=== PATIENT | female | born 1970 | race Caucasian/White ===

== ENCOUNTER 2018-08-02 13:02 | Emergency (ER) | payer BC ==
[2018-08-02] MEDS ORDERED: Ketorolac 30 MG/ML SDV IM ONE (14:09)
[2018-08-02] MEDS ORDERED: HYDROmorphone 1 MG/ML Syringe IM ONE (14:10)
--- NOTE | 2018-08-02 14:16 | EDM.PDOC ---
ED HPI GENERAL MEDICAL PROBLEM - General Chief Complaint: Back Pain or Injury Stated Complaint: BACK PAIN Time Seen by Provider: 08/02/18 14:14 Source of Information: Reports: Patient History Limitations: Reports: Language Barrier - History of Present Illness INITIAL COMMENTS - FREE TEXT/NARRATIVE: 47-year-old female presents with her for evaluation and treatment of back pain. States this is a chronic problem she's had this for several years. Reports over the last 3 days back pain has significantly worsened. She denies any recent trauma such as motor vehicle accidents or falls. Reports she has been in the gym utilizing weights and doing yoga which has exacerbated her back pain. Patient speaks some Syrian. It is rather poor. Language barrier is present. She reports pain radiating into both her legs. Reports pain primarily starts in her low back and radiates superiorly. She reports numbness and tingling into both legs. She reports trouble sleeping due to the pain and trouble walking due to the pain. She denies any urinary symptoms such as dysuria or hematuria. Reports urinary urgency but denies any urinary incontinence. No recent fevers or chills. patient reports some time ago she had imaging of her back done. She states that she was told she had a "bad disc". She states she's never been referred to surgery. If this was done in [place]. patient now resides in [place]. She is not establish with a primary care provider but has an appointment in one week to see someone at [place]. Treatments DEVELOPMENT SCIENTIST: Reports: Other (see below) Other Treatments DEVELOPMENT SCIENTIST: tylenol; naprosyn Lower Back Pain Score (Numeric/FACES): 9 - Related Data Allergies Allergy/AdvReac Type Severity Reaction Status Date / Time Iodinated Contrast- Oral and Allergy Rash Verified 08/02/18 13:35 IV Dye seafood Allergy Rash Uncoded 08/02/18 13:35 Home Meds: Home Meds Acetaminophen/oxyCODONE [Percocet 325-5 MG] 1 each PO Q8HR PRN #10 tab 08/02/18 [Rx] Cyclobenzaprine [Flexeril] 10 mg PO TID PRN #20 tab 08/02/18 [Rx] Lisinopril 10 mg PO DAILY 08/02/18 [History] Omeprazole 20 mg PO DAILY 08/02/18 [History] Pravastatin [Pravachol] 40 mg PO DAILY 08/02/18 [History] Warfarin Sodium [Coumadin] 7.5 mg PO DAILY 08/02/18 [History] Past Medical History Cardiovascular History: Reports: Heart Valve Replacement, High Cholesterol, Hypertension Other Cardiovascular History: mitral Gastrointestinal History: Reports: GERD Musculoskeletal History: Reports: Back Pain, Chronic - Past Surgical History GI Surgical History: Reports: Appendectomy, Cholecystectomy Female Surgical History: Reports: Hysterectomy Social & Family History - Tobacco Use Smoking Status *Q: Former Smoker Used Tobacco, but Quit: Yes Month/Year Tobacco Last Used: 1 week ago - Caffeine Use Caffeine Use: Reports: Coffee - Recreational Drug Use Recreational Drug Use: No ED ROS GENERAL - Review of Systems Review Of Systems: See Below Constitutional: Denies: Fever, Chills GI/Abdominal: Denies: Nausea, Vomiting : Reports: Urgency. Denies: Incontinence Musculoskeletal: Reports: Back Pain (low back with radiation into the bilaterla legs and superiorly), Leg Pain (bilateral legs) Neurological: Reports: Numbness (bilateral legs) ED EXAM,LOWER BACK PAIN/INJURY - Physical Exam Exam: See Below Exam Limited By: Language Barrier General Appearance: Alert, WD/WN, No Apparent Distress Neck: Normal Inspection, Non-Tender, Full Range of Motion Respiratory/Chest: No Respiratory Distress, Lungs Clear, Normal Breath Sounds Cardiovascular: Normal Peripheral Pulses, Regular Rate, Rhythm, No Murmur Back Exam: Normal Inspection, Vertebral Tenderness (pain from t12 to the sacrum) Extremities: Normal Inspection, Limited Range of Motion (reports pain with internal and external rotation of the hips, adduction and abduction of the hips , flexion and extension of the hips (reports back pain with these movements)), Other (unable to flex or extend at the waist due to pain but sat up in bed and walked to the bathroom wihtout problem) Neurological: Alert, Normal Mood/Affect, Normal Dorsiflexion, Normal Plantar Flexion, Normal Gait, Straight Leg Raise (L) (reports pain to the low back), Straight Leg Raise (R) (reports pain to the low back) Psychiatric: Normal Affect, Normal Mood Skin Exam: Warm, Dry, Normal Color Course - Vital Signs Last Recorded V/S: Last Vital Signs Temp 98.0 F 08/02/18 13:29 Pulse 59 L 08/02/18 13:29 Resp 20 09/14/18 13:29 BP 120/80 08/02/18 13:29 Pulse Ox 100 08/02/18 13:29 - Orders/Labs/Meds Meds: Medications Discontinued Medications Generic Name Dose Route Start Last Admin Trade Name Sage PRN Reason Stop Dose Admin Diphenhydramine HCl 50 mg 08/02/18 16:03 08/02/18 16:11 Benadryl IM 08/02/18 16:04 50 mg ONETIME ONE Administration Hydromorphone HCl 1 mg 08/02/18 14:10 08/02/18 14:24 Dilaudid IM 08/02/18 14:11 1 mg ONETIME ONE Administration Ketorolac Tromethamine 30 mg 08/02/18 14:09 08/02/18 14:24 Toradol IM 08/02/18 14:10 30 mg ONETIME ONE Administration Orphenadrine Citrate 100 mg 08/02/18 14:10 08/02/18 14:28 Norflex PO 08/02/18 14:11 100 mg NOW STA Administration - Re-Assessments/Exams Free Text/Narrative Re-Assessment/Exam: 08/02/18 16:20 Discussed imaging with the patient. Xrays tonight will likely not show anything. If she does indeed have a disc problem MRI would be needed to further evaluate. She expresses understanding that we will forgo imaging tonight and she should have an MRI for further evaluation. Patient searched on the drug registry with [place] included, no record of any narcotics found. Checked on the patient. Pain is greatly improved. Reports some itchiness. IM Benadryl given. She is in no respiratory distress and is not actively itching when I enter the room. Will plan to discharge home. Discharge instructions as documented. Departure - Departure Time of Disposition: 16:21 Disposition: Home, Self-Care 01 Condition: Fair Clinical Impression: Back pain - Discharge Information *PRESCRIPTION DRUG MONITORING PROGRAM REVIEWED*: Yes *COPY OF PRESCRIPTION DRUG MONITORING REPORT IN PATIENT ERUM: No Prescriptions: Acetaminophen/oxyCODONE [Percocet 325-5 MG] 1 each PO Q8HR PRN #10 tab PRN Reason: Pain Cyclobenzaprine [Flexeril] 10 mg PO TID PRN #20 tab PRN Reason: Muscle Spasm Instructions: Back Pain, Adult, [id number] Referrals: PCP,None [Primary Care Provider] - Forms: ED Department Discharge Additional Instructions: you were given medication in the ER that can affect your ability to drive and operate machinery. Do not drive or operate machinery within 10 hours of taking perception narcotic pain medication.. Aleve or naproxen twice a day. This is available [id number]. For pain not relieved by Aleve, may take Percocet 1 tab 3 times a day as needed for pain. Do not drive or operate machinery within 12 hours of taking the Percocet. Percocet is habit-forming, take as few these as needed to control your pain. Flexeril 1 tab 3 times a day as needed for muscle pain and spasms. May take [id number] Benadryl as needed for itchiness if you develop any from the medications. Recommend using ice or heat to the back for additional pain relief. May also use a topical products such as icy hot, lidocaine patches or BenGay as needed for additional pain relief. These are available OTC. Follow-up with your primary care provider next week as planned. Please return to the ER if your symptoms change or worsen.
[2018-08-02] MEDS: Orphenadrine 100 MG Tab.ER PO STA ×2 (14:25→14:28)
[2018-08-02] MEDS ORDERED: diphenhydrAMINE 50 MG/ML SDV IM ONE (16:03)
== END 2018-08-02 16:35 | disposition home or self-care (01) ==
LOC: JD.ED 13:02
DX: M54.5 Low back pain (principal); Z79.899 Other long term (current) drug therapy; Z87.891 Personal history of nicotine dependence; Z91.013 Allergy to seafood
CPT/HCPCS: 96372; 99283; A9270; J1170; J1200; J1885

== ENCOUNTER 2018-08-15 12:15 | Emergency (ER) | payer BC ==
[2018-08-15] MEDS ORDERED: EPINEPHrine 1 MG/ML SDV IM ONE (13:10)
[2018-08-15] MEDS ORDERED: predniSONE 20 MG Tab PO ONE (13:10)
[2018-08-15] MEDS ORDERED: diphenhydrAMINE 50 MG Cap PO ONE (13:10)
[2018-08-15] MEDS ORDERED: Famotidine 20 MG Tab PO ONE (13:13)
--- NOTE | 2018-08-15 14:27 | EDM.PDOC ---
<Venice Jacinto - Last Filed: 08/15/18 14:55> ED HPI GENERAL MEDICAL PROBLEM - General Chief Complaint: Skin Complaint Stated Complaint: POSS ALLERGIC REACTION Time Seen by Provider: 08/15/18 12:45 Source of Information: Reports: Patient History Limitations: Reports: No Limitations - History of Present Illness INITIAL COMMENTS - FREE TEXT/NARRATIVE: Berenice is a 47-year-old woman with history of mitral valve replacement, HTN, GERD , and chronic low back pain who reports development of a pruritic rash after taking Aleve this morning at 11:20 am. At approximately 12pm, she developed a generalized, pruritic rash over her chest, arms, back, and legs. She also reports head pressure/burning and face/body warmth. She denies shortness of breath, chest discomfort, wheezing, throat swelling, change in voice, or difficulty swallowing. Berenice reports she has had a previous reaction to shrimp (described as facial swelling), and IV contrast. She denies any seasonal/environmental allergies. She smoked 1/2 ppd of cigarettes from age 16 until she quit smoking 3 weeks ago. (16 pack/years). She is currently taking Chantix for smoking cessation. Onset: Today, Sudden Location: Reports: Neck, Chest - Related Data Allergies Allergy/AdvReac Type Severity Reaction Status Date / Time Iodinated Contrast- Oral and Allergy Rash Verified 08/15/18 12:40 IV Dye seafood Allergy Rash Uncoded 08/15/18 12:40 Home Meds: Home Meds Omeprazole 20 mg PO DAILY 08/02/18 [History] Pravastatin [Pravachol] 40 mg PO DAILY 08/02/18 [History] Warfarin Sodium [Coumadin] 7.5 mg PO DAILY 08/02/18 [History] traMADol [Ultram] 50 mg PO Q8HR PRN #14 tablet 08/15/18 [Rx] ED ROS GENERAL - Review of Systems Constitutional: Denies: Fever, Chills HEENT: Denies: Throat Swelling, Vision Change Respiratory: Denies: Shortness of Breath, Wheezing, Cough Cardiovascular: Denies: Chest Pain, Lightheadedness, Palpitations, Syncope GI/Abdominal: Denies: Abdominal Pain, Diarrhea, Nausea, Vomiting Skin: Reports: Pruritis, Rash Neurological: Reports: Headache. Denies: Trouble Speaking ED EXAM, SKIN/RASH Text/Narrative:: Pt appears uncomfortable, but non-toxic. She is scratching her arms and legs. Breathing comfortably on room air with no respiratory distress. Exam Limited By: No Limitations General Appearance: Alert, Mild Distress, Thin Throat/Mouth: Normal Inspection, Normal Oropharynx, Normal Voice, No Airway Compromise Head: No: Facial Swelling Respiratory/Chest: No Respiratory Distress, Lungs Clear, Normal Breath Sounds Cardiovascular: Normal Peripheral Pulses, Regular Rate, Rhythm, No Murmur GI/Abdominal: Soft, Non-Tender Neurological: Alert, Oriented Psychiatric: Anxious Skin: Rash (diffuse fine, pruritic, macular erythematous rash generalized over chest, back, arms, and legs. ) Location, Skin: Generalized Characteristics: Macular, Fine, Erythematous Course - Vital Signs Last Recorded V/S: Last Vital Signs Temp 97.6 F 08/15/18 12:37 Pulse 76 08/15/18 12:37 Resp 16 08/15/18 12:37 BP 150/87 H 08/15/18 12:37 Pulse Ox 98 08/15/18 12:37 - Orders/Labs/Meds Meds: Medications Discontinued Medications Generic Name Dose Route Start Last Admin Trade Name Freq PRN Reason Stop Dose Admin Diphenhydramine HCl 50 mg 08/15/18 13:10 08/15/18 13:22 Benadryl PO 08/15/18 13:11 50 mg ONETIME ONE Administration Epinephrine HCl 0.2 mg 08/15/18 13:10 08/15/18 13:22 Adrenalin IM 08/15/18 13:11 0.2 mg ONETIME ONE Administration Famotidine 20 mg 08/15/18 13:13 08/15/18 13:22 Pepcid PO 08/15/18 13:14 20 mg ONETIME ONE Administration Loratadine 10 mg 08/15/18 14:32 08/15/18 14:44 Claritin PO 08/15/18 14:33 10 mg ONETIME ONE Administration Prednisone 40 mg 08/15/18 13:10 08/15/18 13:22 Prednisone PO 08/15/18 13:11 40 mg ONETIME ONE Administration Departure - Departure Disposition: Home, Self-Care 01 Clinical Impression: Allergic reaction caused by a drug Qualifiers: Encounter type: initial encounter Qualified Code(s): T78.40XA - Allergy, unspecified, initial encounter - Discharge Information Prescriptions: traMADol [Ultram] 50 mg PO Q8HR PRN #14 tablet PRN Reason: Pain Instructions: Drug Allergy, [id number] Referrals: PCP,Unknown [Primary Care Provider] - Forms: ED Department Discharge Additional Instructions: claritin 10 mg daily for the next 4 days, prednisone as prescribed for the next 4 days, tylenol 2 to 3 times daily for low back pain as needed, you may take tramadol in between doses if needed for extra pain relief. Follow up with your regular medical provider in about 7 days for recheck, further eval and treatment as needed. <KentonTanner henriquez Cata - Last Filed: 08/16/18 09:09> ED HPI GENERAL MEDICAL PROBLEM - General Source of Information: Reports: Patient, RN Notes Reviewed Back Pain Score (Numeric/FACES): 5 Past Medical History Cardiovascular History: Reports: Heart Valve Replacement, High Cholesterol, Hypertension Other Cardiovascular History: mitral Gastrointestinal History: Reports: GERD Musculoskeletal History: Reports: Back Pain, Chronic - Past Surgical History GI Surgical History: Reports: Appendectomy, Cholecystectomy Female Surgical History: Reports: Hysterectomy Social & Family History - Tobacco Use Smoking Status *Q: Never Smoker - Caffeine Use Caffeine Use: Reports: None - Recreational Drug Use Recreational Drug Use: No ED ROS GENERAL - Review of Systems Review Of Systems: See Below HEENT: Denies: Throat Pain Respiratory: Denies: Pleuritic Chest Pain Musculoskeletal: Denies: Neck Pain Neurological: Reports: Dizziness (mild). Denies: Numbness, Tingling, Weakness ED EXAM, SKIN/RASH Exam: See Below General Appearance: Anxious (mild) Neck: Supple, Other (no swelling) Respiratory/Chest: No: Rhonchi, Wheezing, Stridor Extremities: Normal Inspection, Normal Range of Motion Neurological: No Motor/Sensory Deficits Skin: Normal Color Course - Re-Assessments/Exams Free Text/Narrative Re-Assessment/Exam: 08/16/18 09:07 treated with PO benadryl, prednisone, epi 0.2 ml IM. She responded very well to that, rash almost completelyl cleared, itchiness gone, discharge instr. as documented. Departure - Departure Time of Disposition: 14:27 Condition: Fair
[2018-08-15] MEDS ORDERED: Loratadine 10 MG Tab PO ONE (14:32)
== END 2018-08-15 14:46 | disposition home or self-care (01) ==
LOC: JD.ED 12:15
DX: L25.8 Unspecified contact dermatitis due to other agents (principal); T39.315A Adverse effect of propionic acid derivatives, initial encounter; I10 Essential (primary) hypertension; E78.00 Pure hypercholesterolemia, unspecified; Z95.5 Presence of coronary angioplasty implant and graft; Z91.041 Radiographic dye allergy status; Z91.013 Allergy to seafood; Z79.01 Long term (current) use of anticoagulants; Z79.899 Other long term (current) drug therapy
CPT/HCPCS: 96372; 99283; A9270; J0171

== ENCOUNTER 2018-11-22 14:51 | Emergency (ER) | payer BC ==
[2018-11-22] MEDS ORDERED: Ketorolac 15 MG/ML SDV IVPUSH ONE (15:50)
[2018-11-22] MEDS ORDERED: Ondansetron 4 MG/2 ML SDV IVPUSH ONE (15:50)
[2018-11-22] MEDS ORDERED: Lactated Ringers 1,000 ML IV ONE (15:50)
[2018-11-22] MEDS ORDERED: Sodium Chloride 0.9% 10 ML Syringe FLUSH PRN (15:50)
[2018-11-22] MEDS ORDERED: Dicyclomine 10 MG Cap PO ONE (16:16)
[2018-11-22] MEDS ORDERED: Lactated Ringers 500 ML IV ONE (17:29)
--- NOTE | 2018-11-22 17:58 | EDM.PDOC ---
ED HPI GENERAL MEDICAL PROBLEM - General Chief Complaint: Gastrointestinal Problem Stated Complaint: DIARRHEA Time Seen by Provider: 11/22/18 16:11 Source of Information: Reports: Patient History Limitations: Reports: Language Barrier - History of Present Illness INITIAL COMMENTS - FREE TEXT/NARRATIVE: 48-year-old female presents for evaluation and treatment of abdominal pain. Patient does not speak much South African. History obtained primarily from the patient 's who is translating for her. Reports she for start extensive abdominal cramping, nausea, vomiting and diarrhea since last night. No blood in her stool or emesis. No fevers or chills. Reports headaches, bodyaches and lightheadedness. Patient reports she has been around children recently with similar symptoms. Abdomen Pain Score (Numeric/FACES): 9 - Related Data Allergies Allergy/AdvReac Type Severity Reaction Status Date / Time Iodinated Contrast- Oral and Allergy Rash Verified 10/14/18 14:22 IV Dye seafood Allergy Rash Uncoded 09/29/18 17:03 Home Meds: Home Meds Lisinopril 2.5 mg PO DAILY 10/14/18 [History] Omeprazole 40 mg PO DAILY 10/14/18 [History] Warfarin [Coumadin] 7.5 mg PO MOWEFR 10/14/18 [History] traMADol [Ultram] 50 mg PO BID PRN 10/14/18 [History] Dicyclomine [Bentyl] 10 mg PO TID #15 cap 11/22/18 [Rx] Ondansetron [Zofran ODT] 4 mg PO Q6H PRN #20 tab.dis 11/22/18 [Rx] Warfarin [Coumadin] 5 mg PO SUTUTHSA 11/22/18 [History] Past Medical History Cardiovascular History: Reports: Heart Valve Replacement, High Cholesterol, Hypertension Other Cardiovascular History: mitral Gastrointestinal History: Reports: GERD Musculoskeletal History: Reports: Back Pain, Chronic Hematologic History: Reports: Anticoagulation Therapy, Other (See Below) Other Hematologic History: blood clots to legs - Past Surgical History GI Surgical History: Reports: Appendectomy, Cholecystectomy Female Surgical History: Reports: Hysterectomy Social & Family History - Family History Family Medical History: Noncontributory - Tobacco Use Smoking Status *Q: Current Every Day Smoker Years of Tobacco use: 25 Packs/Tins Daily: 0.5 - Caffeine Use Caffeine Use: Reports: Coffee, Soda, Tea - Recreational Drug Use Recreational Drug Use: No ED ROS GENERAL - Review of Systems Review Of Systems: See Below Constitutional: Denies: Fever, Chills Respiratory: Denies: Shortness of Breath Cardiovascular: Denies: Chest Pain GI/Abdominal: Reports: Abdominal Pain (reports cramping), Diarrhea, Nausea, Vomiting. Denies: Bloody Stool, Hematemesis Neurological: Reports: Headache ED EXAM, GI/ABD - Physical Exam Exam: See Below Exam Limited By: No Limitations General Appearance: Alert, WD/WN, No Apparent Distress Respiratory/Chest: No Respiratory Distress, Lungs Clear, Normal Breath Sounds Cardiovascular: Normal Peripheral Pulses, Regular Rate, Rhythm, No Murmur GI/Abdominal Exam: Normal Bowel Sounds, Soft, Tender (generalized throughtout entire abdomen) Neurological: Alert, Oriented, Normal Cognition Psychiatric: Normal Affect, Normal Mood Skin Exam: Warm, Dry, Normal Color Course - Vital Signs Last Recorded V/S: Last Vital Signs Temp 98.8 F 11/22/18 15:15 Pulse 83 11/22/18 15:15 Resp 20 11/22/18 15:15 BP 126/93 H 11/22/18 15:15 Pulse Ox 100 11/22/18 15:15 Orthostatic Blood Pressure [ 105/83 Standing] Orthostatic Blood Pressure [ 124/74 Sitting] Orthostatic Blood Pressure [ 120/77 Supine] - Orders/Labs/Meds Labs: Laboratory Tests 11/22/18 11/22/18 Range/Units 16:00 16:00 WBC 7.42 (3.98-10.04) K/mm3 RBC 5.45 H (3.98-5.22) M/mm3 Hgb 14.5 (11.2-15.7) gm/L Hct 44.6 (34.1-44.9) % MCV 81.8 (79.4-94.8) fl MCH 26.6 (25.6-32.2) pg MCHC 32.5 (32.2-35.5) g/dl RDW Std Deviation 46.1 (36.4-46.3) fL Plt Count 232 (182-369) K/mm3 MPV 12.8 H (9.4-12.3) fl Neut % (Auto) 85.3 H (34.0-71.1) % Lymph % (Auto) 10.8 L (19.3-51.7) % Kinney % (Auto) 3.2 L (4.7-12.5) % Eos % (Auto) 0.5 L (0.7-5.8) Baso % (Auto) 0.1 (0.1-1.2) % Neut # (Auto) 6.32 H (1.56-6.13) K/mm3 Lymph # (Auto) 0.80 L (1.18-3.74) K/mm3 Kinney # (Auto) 0.24 (0.24-0.36) K/mm3 Eos # (Auto) 0.04 (0.04-0.36) K/mm3 Baso # (Auto) 0.01 (0.01-0.08) K/mm3 Manual Slide Review Abnormal smear Sodium 140 (136-145) mEq/L Potassium 3.8 (3.5-5.1) mEq/L Chloride 104 (98-107) mEq/L Carbon Dioxide 25 (21-32) mEq/L Anion Gap 14.8 (5-15) BUN 12 (7-18) mg/dL Creatinine 0.8 (0.55-1.02) mg/dL Est Cr Clr Drug Dosing 72.65 mL/min Estimated GFR (MDRD) > 60 (>60) mL/min BUN/Creatinine Ratio 15.0 (14-18) Glucose 93 (74-106) mg/dL Calcium 9.2 (8.5-10.1) mg/dL Magnesium 1.9 (1.8-2.4) mg/dl Total Bilirubin 1.3 H (0.2-1.0) mg/dL AST 30 (15-37) U/L ALT 35 (14-59) U/L Alkaline Phosphatase 82 (46-116) U/L Total Protein 8.2 (6.4-8.2) g/dl Albumin 4.3 (3.4-5.0) g/dl Globulin 3.9 gm/dL Albumin/Globulin Ratio 1.1 (1-2) Meds: Medications Discontinued Medications Generic Name Dose Route Start Last Admin Trade Name Freq PRN Reason Stop Dose Admin Acetaminophen 975 mg 11/22/18 18:39 11/22/18 18:46 Tylenol PO 11/22/18 18:40 975 mg NOW ONE Administration Dicyclomine HCl 10 mg 11/22/18 16:16 11/22/18 16:32 Bentyl PO 11/22/18 16:17 10 mg ONETIME ONE Administration Lactated Ringer's 1,000 mls @ 999 mls/hr 11/22/18 15:50 11/22/18 16:05 Ringers, Lactated IV 11/22/18 16:50 999 mls/hr .BOLUS ONE Administration Lactated Ringer's 500 mls @ 999 mls/hr 11/22/18 17:29 11/22/18 17:50 Ringers, Lactated IV 11/22/18 17:59 999 mls/hr .BOLUS ONE Administration Ketorolac Tromethamine 15 mg 11/22/18 15:50 11/22/18 16:10 Toradol IVPUSH 11/22/18 15:51 15 mg ONETIME ONE Administration Ondansetron HCl 4 mg 11/22/18 15:50 11/22/18 16:08 Zofran IVPUSH 11/22/18 15:51 4 mg ONETIME ONE Administration Sodium Chloride 10 ml 11/22/18 15:50 11/22/18 16:11 Saline Flush FLUSH 10 ml ASDIRECTED PRN Administration Keep Vein Open - Re-Assessments/Exams Free Text/Narrative Re-Assessment/Exam: 11/22/18 18:05 Reviewed the labs with the patient. She is feeling better after nausea medication, fluids and pain medication. Likely viral gastroenteritis causing symptoms today. Will discharge home today, discharge instructions as documented. Departure - Departure Time of Disposition: 18:07 Disposition: Home, Self-Care 01 Condition: Fair Clinical Impression: Viral gastroenteritis - Discharge Information *PRESCRIPTION DRUG MONITORING PROGRAM REVIEWED*: No *COPY OF PRESCRIPTION DRUG MONITORING REPORT IN PATIENT ERUM: No Prescriptions: Dicyclomine [Bentyl] 10 mg PO TID #15 cap Ondansetron [Zofran ODT] 4 mg PO Q6H PRN #20 tab.dis PRN Reason: Nausea Instructions: Viral Gastroenteritis, Adult, [id number] Referrals: PCP,None [Primary Care Provider] - Forms: ED Department Discharge Additional Instructions: Take the Zofran as prescribed. 1 tab sublingual every 6 to 8 hours as needed for nausea. You may take the Bentyl 1 tab 3 times a day as needed for abdominal pain and cramping. You may take [id number] Tylenol as needed for additional pain relief. Recommend yogurt or probiotic to help reduce your symptoms. Probiotics are available OTC. Expects to have symptoms for the next 3 days. If your symptoms persist beyond 5- 7 days follow-up with your primary care provider. If your symptoms change or worsen please return to the ER.
[2018-11-22] MEDS ORDERED: Acetaminophen 325 MG Tab PO ONE (18:39)
== END 2018-11-22 18:45 | disposition home or self-care (01) ==
LOC: JD.ED 14:51
DX: A08.4 Viral intestinal infection, unspecified (principal); I10 Essential (primary) hypertension; F17.210 Nicotine dependence, cigarettes, uncomplicated; Z91.013 Allergy to seafood; Z91.041 Radiographic dye allergy status
CPT/HCPCS: 36415; 80053; 83735; 85025; 87804; 96361; 96374; 96375; 99284; A9270; J1885; J2405; J7120

== ENCOUNTER 2018-11-29 16:00 | Emergency (ER) | payer BC ==
[2018-11-29] MEDS ORDERED: Lactated Ringers 1,000 ML IV ONE ×2 (16:35→18:09)
[2018-11-29] MEDS ORDERED: Sodium Chloride 0.9% 10 ML Syringe FLUSH PRN (16:35)
[2018-11-29] MEDS ORDERED: Ketorolac 15 MG/ML SDV IVPUSH ONE (17:02)
[2018-11-29] MEDS ORDERED: Acetaminophen 325 MG Tab PO ONE (18:08)
--- NOTE | 2018-11-29 18:22 | EDM.PDOC ---
ED HPI GENERAL MEDICAL PROBLEM - General Chief Complaint: Gastrointestinal Problem Stated Complaint: DIARRHEA Time Seen by Provider: 11/29/18 16:12 Source of Information: Reports: Patient History Limitations: Reports: No Limitations - History of Present Illness INITIAL COMMENTS - FREE TEXT/NARRATIVE: 48-year-old female presents for evaluation and treatment of diarrhea. Patient was seen by myself 1 week ago. She had labs done which did not show any abnormalities. Prescribe some Zofran and Bentyl. Instructed to follow-up with her primary care provider if not improved much. She states that she's diarrhea since being seen. She is now had 8 days of diarrhea. She reports associated symptoms of nausea, vomiting and abdominal cramping. She has not had any vomiting since yesterday. Reports associated symptoms of feeling feverish, chilled, weak, headaches and body aches. Denies any urinary symptoms. Reports eating seems to cause the diarrhea. Denies any recent antibiotic usage. Reports she was around 2 children, who have since gone home to [place], but also had similar symptoms. Patient is on Coumadin. She denies blood in her stool. Previous abdominal surgeries include an appendectomy, cholecystectomy and hernia repair. Primary care provider is Dr. Peralta. Abdominal Pain Score (Numeric/FACES): 5 - Related Data Allergies Allergy/AdvReac Type Severity Reaction Status Date / Time Iodinated Contrast- Oral and Allergy Rash Verified 11/29/18 16:15 IV Dye seafood Allergy Rash Uncoded 11/29/18 20:54 Home Meds: Home Meds Lisinopril 2.5 mg PO DAILY 10/14/18 [History] Omeprazole 40 mg PO DAILY 10/14/18 [History] Warfarin [Coumadin] 7.5 mg PO MOWEFR 10/14/18 [History] traMADol [Ultram] 50 mg PO BID PRN 10/14/18 [History] Ondansetron [Zofran ODT] 4 mg PO Q6H PRN #20 tab.dis 11/22/18 [Rx] Warfarin [Coumadin] 5 mg PO SUTUTHSA 11/22/18 [History] Past Medical History Cardiovascular History: Reports: Heart Valve Replacement, High Cholesterol, Hypertension Other Cardiovascular History: mitral,leaking valve Gastrointestinal History: Reports: GERD, Helicobacter Pylori Other Gastrointestinal History: e.coli, unsure if had h pilori Musculoskeletal History: Reports: Back Pain, Chronic Hematologic History: Reports: Anticoagulation Therapy, Other (See Below) Other Hematologic History: blood clots to legs - Past Surgical History GI Surgical History: Reports: Appendectomy, Cholecystectomy, Hernia Repair/Other Other GI Surgeries/Procedures: hiatial Female Surgical History: Reports: Hysterectomy, Oophorectomy, Tubal Ligation Social & Family History - Family History Family Medical History: Noncontributory - Tobacco Use Smoking Status *Q: Current Every Day Smoker Years of Tobacco use: 32 Packs/Tins Daily: 0.5 Used Tobacco, but Quit: No Second Hand Smoke Exposure: No - Caffeine Use Caffeine Use: Reports: Coffee - Recreational Drug Use Recreational Drug Use: No ED ROS GENERAL - Review of Systems Review Of Systems: See Below Constitutional: Reports: Fever, Chills, Malaise, Weakness, Fatigue GI/Abdominal: Reports: Abdominal Pain, Diarrhea, Nausea, Vomiting. Denies: Hematochezia, Melena : Reports: No Symptoms Neurological: Reports: Dizziness, Headache ED EXAM, GI/ABD - Physical Exam Exam: See Below Exam Limited By: No Limitations General Appearance: Alert, WD/WN, No Apparent Distress Throat/Mouth: Normal Inspection, Normal Voice, No Airway Compromise Respiratory/Chest: No Respiratory Distress, Lungs Clear, Normal Breath Sounds Cardiovascular: Normal Peripheral Pulses, Regular Rate, Rhythm, No Murmur GI/Abdominal Exam: Normal Bowel Sounds, Soft, Tender (generalized thourghout entire abdomen) Rectal (Female) Exam: Normal Exam, Normal Rectal Tone, Heme - Stool Neurological: Alert, Oriented, Normal Cognition Psychiatric: Normal Affect, Normal Mood Skin Exam: Warm, Dry, Normal Color Course - Vital Signs Last Recorded V/S: Last Vital Signs Temp 99.1 F 11/29/18 16:10 Pulse 80 11/29/18 16:10 Resp 15 11/29/18 16:10 BP 153/98 H 11/29/18 16:10 Pulse Ox 99 11/29/18 16:10 Orthostatic Blood Pressure [ 122/86 Standing] Orthostatic Blood Pressure [ 139/86 Sitting] Orthostatic Blood Pressure [ 137/88 Supine] - Orders/Labs/Meds Orders: Active Orders 24 hr Category Date Time Status Orthostatic Vital Signs [RC] ASDIRECTED Care 11/29/18 16:37 Active Peripheral IV Care [RC] . DIRECTED Care 11/29/18 16:36 Active Abdomen 2V AP Flat Upright [CR] Stat Exams 11/29/18 16:35 Taken Chest 2V [CR] Stat Exams 11/29/18 16:35 Taken Peripheral IV Insertion Adult [OM.PC] Routine Oth 11/29/18 16:35 Ordered Labs: Laboratory Tests 11/29/18 11/29/18 11/29/18 Range/Units 17:00 17:00 17:00 WBC 6.26 (3.98-10.04) K/mm3 RBC 5.03 (3.98-5.22) M/mm3 Hgb 13.2 (11.2-15.7) gm/L Hct 41.0 (34.1-44.9) % MCV 81.5 (79.4-94.8) fl MCH 26.2 (25.6-32.2) pg MCHC 32.2 (32.2-35.5) g/dl RDW Std Deviation 43.6 (36.4-46.3) fL Plt Count 276 (182-369) K/mm3 MPV 12.7 H (9.4-12.3) fl Neutrophils % (Manual) 59 (40-60) % Band Neutrophils % 0 (0-10) % Lymphocytes % (Manual) 34 (20-40) % Atypical Lymphs % 0 % Monocytes % (Manual) 7 (2-10) % Eosinophils % (Manual) 0 L (0.7-5.8) % Basophils % (Manual) 0 L (0.1-1.2) Platelet Estimate Adequate RBC Morph Comment Normal PT 25.2 H (9.5-12.1) SECONDS INR 2.35 Sodium 141 (136-145) mEq/L Potassium 3.8 (3.5-5.1) mEq/L Chloride 106 (98-107) mEq/L Carbon Dioxide 26 (21-32) mEq/L Anion Gap 12.8 (5-15) BUN 9 (7-18) mg/dL Creatinine 0.7 (0.55-1.02) mg/dL Est Cr Clr Drug Dosing 83.03 mL/min Estimated GFR (MDRD) > 60 (>60) mL/min BUN/Creatinine Ratio 12.9 L (14-18) Glucose 100 (74-106) mg/dL Calcium 9.0 (8.5-10.1) mg/dL Magnesium 2.1 (1.8-2.4) mg/dl Total Bilirubin 0.4 (0.2-1.0) mg/dL AST 24 (15-37) U/L ALT 27 (14-59) U/L Alkaline Phosphatase 68 (46-116) U/L C-Reactive Protein 1.0 (<1.0) mg/dL Total Protein 7.3 (6.4-8.2) g/dl Albumin 3.6 (3.4-5.0) g/dl Globulin 3.7 gm/dL Albumin/Globulin Ratio 1.0 (1-2) Lipase 155 (73-393) U/L Urine Color (Yellow) Urine Appearance (Clear) Urine pH (5.0-8.0) Ur Specific Murray (1.005-1.030) Urine Protein (Negative) Urine Glucose (UA) (Negative) Urine Ketones (Negative) Urine Occult Blood (Negative) Urine Nitrite (Negative) Urine Bilirubin (Negative) Urine Urobilinogen (0.2-1.0) Ur Leukocyte Esterase (Negative) Urine RBC (0-5) /hpf Urine WBC (0-5) /hpf Ur Epithelial Cells (0-5) /hpf Urine Bacteria (FEW) /hpf Urine Mucus (FEW) /hpf 11/29/18 Range/Units 17:50 WBC (3.98-10.04) K/mm3 RBC (3.98-5.22) M/mm3 Hgb (11.2-15.7) gm/L Hct (34.1-44.9) % MCV (79.4-94.8) fl MCH (25.6-32.2) pg MCHC (32.2-35.5) g/dl RDW Std Deviation (36.4-46.3) fL Plt Count (182-369) K/mm3 MPV (9.4-12.3) fl Neutrophils % (Manual) (40-60) % Band Neutrophils % (0-10) % Lymphocytes % (Manual) (20-40) % Atypical Lymphs % % Monocytes % (Manual) (2-10) % Eosinophils % (Manual) (0.7-5.8) % Basophils % (Manual) (0.1-1.2) Platelet Estimate RBC Morph Comment PT (9.5-12.1) SECONDS INR Sodium (136-145) mEq/L Potassium (3.5-5.1) mEq/L Chloride (98-107) mEq/L Carbon Dioxide (21-32) mEq/L Anion Gap (5-15) BUN (7-18) mg/dL Creatinine (0.55-1.02) mg/dL Est Cr Clr Drug Dosing mL/min Estimated GFR (MDRD) (>60) mL/min BUN/Creatinine Ratio (14-18) Glucose (74-106) mg/dL Calcium (8.5-10.1) mg/dL Magnesium (1.8-2.4) mg/dl Total Bilirubin (0.2-1.0) mg/dL AST (15-37) U/L ALT (14-59) U/L Alkaline Phosphatase (46-116) U/L C-Reactive Protein (<1.0) mg/dL Total Protein (6.4-8.2) g/dl Albumin (3.4-5.0) g/dl Globulin gm/dL Albumin/Globulin Ratio (1-2) Lipase (73-393) U/L Urine Color Yellow (Yellow) Urine Appearance Clear (Clear) Urine pH 6.0 (5.0-8.0) Ur Specific Murray > or = 1.030 (1.005-1.030) Urine Protein Trace H (Negative) Urine Glucose (UA) Negative (Negative) Urine Ketones 1+ H (Negative) Urine Occult Blood Negative (Negative) Urine Nitrite Negative (Negative) Urine Bilirubin 1+ H (Negative) Urine Urobilinogen 1.0 (0.2-1.0) Ur Leukocyte Esterase Negative (Negative) Urine RBC 0-5 (0-5) /hpf Urine WBC 0-5 (0-5) /hpf Ur Epithelial Cells 0-5 (0-5) /hpf Urine Bacteria Few (FEW) /hpf Urine Mucus Many H (FEW) /hpf Meds: Medications Discontinued Medications Generic Name Dose Route Start Last Admin Trade Name Sage PRN Reason Stop Dose Admin Acetaminophen 975 mg 11/29/18 18:08 11/29/18 18:18 Tylenol PO 11/29/18 18:09 975 mg NOW ONE Administration Lactated Ringer's 1,000 mls @ 999 mls/hr 11/29/18 16:35 01/11/19 17:07 Ringers, Lactated IV 11/29/18 17:35 999 mls/hr .BOLUS ONE Administration Lactated Ringer's 1,000 mls @ 999 mls/hr 11/29/18 18:09 11/29/18 18:18 Ringers, Lactated IV 11/29/18 19:09 999 mls/hr .BOLUS ONE Administration Ketorolac Tromethamine 15 mg 11/29/18 17:02 11/29/18 17:06 Toradol IVPUSH 11/29/18 17:03 15 mg ONETIME ONE Administration Sodium Chloride 10 ml 11/29/18 16:35 11/29/18 17:07 Saline Flush FLUSH 10 ml ASDIRECTED PRN Administration Keep Vein Open - Radiology Interpretation Free Text/Narrative:: Chest: 2 views of the chest are obtained. Comparison: No prior chest x-ray. Heart size and mediastinum are normal. Previous sternotomy is noted for prosthetic heart valve. Lungs are clear without acute parenchymal change. Bony structures shows slight degenerative change within the spine. Surgical clips are seen from prior cholecystectomy. Minimal scarring is noted within the right middle lobe. Impression: 1. Incidental findings. Nothing acute is appreciated. Abdomen: Supine and upright views of the abdomen were obtained. Comparison: No prior abdominal x-ray. Bowel gas pattern appears within normal limits. Surgical clips are seen from prior cholecystectomy. Partially visualized prosthetic heart valve is noted. No free air is seen. No abnormal calcifications or discrete soft tissue abnormality is seen. Impression: 1. Incidental findings. Nothing acute is seen. Head CT Technique: Multiple axial sections through the brain were obtained. Intravenous contrast was not utilized. Comparison: Prior head CT study of 10/14/18. Findings: Ventricles along with basal cisterns and sulci over the convexities appear within normal limits for the patient's age. No abnormal parenchymal densities are seen. No evidence of intracranial hemorrhage. No midline shift or mass effect is seen. Bone window settings were reviewed which shows no acute calvarial abnormality. Visualized sinuses are clear. Impression: 1. Nothing acute is appreciated on noncontrast head CT exam. No interval change is seen from prior study. - Re-Assessments/Exams Free Text/Narrative Re-Assessment/Exam: 11/29/18 20:00 influenza returned negative. I reviewed the labs and imaging with the patient. We went ahead and ordered a head CT as she is complaining of 10 out of 10 headache that was not relieved with the Toradol. She is on Coumadin. Reviewed the head CT results with the patient. She has not had any diarrhea since entering the ER. She states she only has diarrhea when she eats. She did eat some crackers and Jell-O and this did not cause her to have any diarrhea. I'm recommending we do stool studies. I'll check her for rotavirus, white blood cells, stool culture and C. difficile. I do not see any indication to CT the patient tonight; she also has allergies to IV and oral contrast which would limit this study. I'm recommending that we do the stool studies. She should follow a bland diet and follow up with her primary care provider next week. Discharge instructions as documented. Departure - Departure Time of Disposition: 20:00 Disposition: Home, Self-Care 01 Condition: Fair Clinical Impression: Diarrhea - Discharge Information *PRESCRIPTION DRUG MONITORING PROGRAM REVIEWED*: No *COPY OF PRESCRIPTION DRUG MONITORING REPORT IN PATIENT ERUM: No Instructions: Diarrhea, Adult, [id number] Referrals: Caroline Peralta MD [Primary Care Provider] - Forms: ED Department Discharge Additional Instructions: Bring the stool samples back when you are done collecting them. Recommend clear fluids and a bland diet such as bread, soup broth, rice, applesauce, toast, etc. Take a probiotic if you're not already doing so, these are available over-the- counter. Continue on the Bentyl and Zofran as needed for abdominal cramping and nausea. Follow-up with your primary care provider next week. Please return to ER if your symptoms change or worsen. - My Orders Last 24 Hours: My Active Orders 11/29/18 16:35 Abdomen 2V AP Flat Upright [CR] Stat Chest 2V [CR] Stat Peripheral IV Insertion Adult [OM.PC] Routine 11/29/18 16:36 Peripheral IV Care [RC] . DIRECTED 11/29/18 16:37 Orthostatic Vital Signs [RC] ASDIRECTED - Assessment/Plan Last 24 Hours: My Active Orders 11/29/18 16:35 Abdomen 2V AP Flat Upright [CR] Stat Chest 2V [CR] Stat Peripheral IV Insertion Adult [OM.PC] Routine 11/29/18 16:36 Peripheral IV Care [RC] . DIRECTED 11/29/18 16:37 Orthostatic Vital Signs [RC] ASDIRECTED
--- NOTE | 2018-11-29 19:03 | CT ---
Head CT Technique: Multiple axial sections through the brain were obtained. Intravenous contrast was not utilized. Comparison: Prior head CT study of 10/14/18. Findings: Ventricles along with basal cisterns and sulci over the convexities appear within normal limits for the patient's age. No abnormal parenchymal densities are seen. No evidence of intracranial hemorrhage. No midline shift or mass effect is seen. Bone window settings were reviewed which shows no acute calvarial abnormality. Visualized sinuses are clear. Impression: 1. Nothing acute is appreciated on noncontrast head CT exam. No interval change is seen from prior study. Diagnostic code #1
--- NOTE | 2018-11-30 08:50 | CR ---
Abdomen: Supine and upright views of the abdomen were obtained. Comparison: No prior abdominal x-ray. Bowel gas pattern appears within normal limits. Surgical clips are seen from prior cholecystectomy. Partially visualized prosthetic heart valve is noted. No free air is seen. No abnormal calcifications or discrete soft tissue abnormality is seen. Impression: 1. Incidental findings. Nothing acute is seen. Diagnostic code #2
--- NOTE | 2018-11-30 08:50 | CR ---
Chest: Two views of the chest are obtained. Comparison: No prior chest x-ray. Heart size and mediastinum are normal. Previous sternotomy is noted for prosthetic heart valve. Lungs are clear without acute parenchymal change. Bony structures show slight degenerative change within the spine. Surgical clips are seen from prior cholecystectomy. Minimal scarring is noted within the right middle lobe. Impression: 1. Incidental findings. Nothing acute is appreciated. Diagnostic code #2
== END 2018-11-29 20:18 | disposition home or self-care (01) ==
LOC: JD.ED 16:00
DX: R19.7 Diarrhea, unspecified (principal); F17.210 Nicotine dependence, cigarettes, uncomplicated; Z79.01 Long term (current) use of anticoagulants; Z79.899 Other long term (current) drug therapy; Z91.041 Radiographic dye allergy status; Z91.013 Allergy to seafood
CPT/HCPCS: 36415; 70450; 71046; 74019; 80053; 81001; 83690; 83735; 85007; 85027; 85610; 86140; 87804; 96361; 96374; 99285; A9270; J1885; J7120

== ENCOUNTER 2018-12-08 13:32 | Emergency (ER) | payer BC ==
[2018-12-08] MEDS ORDERED: Sodium Chloride 0.9% 1,000 ML IV SCH (14:15)
[2018-12-08] MEDS ORDERED: Metoclopramide 10 MG/2 ML SDV IVPUSH ONE (14:17)
[2018-12-08] MEDS ORDERED: HYDROmorphone 1 MG/ML Syringe IVPUSH ONE (14:17)
--- NOTE | 2018-12-08 14:17 | EDM.PDOC ---
ED HPI GENERAL MEDICAL PROBLEM - General Chief Complaint: Lower Extremity Injury/Pain Stated Complaint: PAIN IN LT ARM AND LEG Time Seen by Provider: 12/08/18 14:07 Source of Information: Reports: Patient, Family (spouse) History Limitations: Reports: No Limitations - History of Present Illness INITIAL COMMENTS - FREE TEXT/NARRATIVE: 48-year-old female presents to the ED with severe pain of lower extremity but awoke from sleep around 0120 hrs. this morning. Pain is gradually increased intensity particularly in the mid calf region of her left leg. 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 He states she has [address] She states the leg is still sensate. Complains of constant deep aching and throbbing. 10 out of 10. Apparently her INR was therapeutic on December 03. Apparently the time was checked before that it was subtherapeutic in the dosage was increased. Thus the dosage was thus not changed last week. Onset: Today Onset Date: 12/08/18 Onset Time: : Duration: Hour(s): Location: Reports: Lower Extremity, Left (Demerol mid thigh down to the foot.) Quality: Reports: Ache, Throbbing Severity: Severe Improves with: Reports: None (Tender the 10) Worsens with: Reports: Movement Context: Reports: Other. Denies: Activity, Exercise, Lifting, Sick Contact, Trauma Associated Symptoms: Reports: No Other Symptoms Left Leg Pain Score (Numeric/FACES): 10 - Related Data Allergies Allergy/AdvReac Type Severity Reaction Status Date / Time Iodinated Contrast- Oral and Allergy Rash Verified 12/08/18 15:27 IV Dye seafood Allergy Rash Uncoded 11/29/18 20:54 Home Meds: Home Meds Lisinopril 2.5 mg PO DAILY 10/14/18 [History] Omeprazole 40 mg PO DAILY 10/14/18 [History] traMADol [Ultram] 50 mg PO BID PRN 10/14/18 [History] Ondansetron [Zofran ODT] 4 mg PO Q6H PRN #20 tab.dis 11/22/18 [Rx] Warfarin [Coumadin] 7.5 mg PO DAILY 11/22/18 [History] Methocarbamol [Robaxin] 500 mg pe PO TID 12/08/18 [History] oxyCODONE HCl/Acetaminophen [Percocet 5-325 mg Tablet] 1 - 2 each PO Q4H PRN # 20 tablet 12/08/18 [Rx] Past Medical History Cardiovascular History: Reports: Heart Valve Replacement, High Cholesterol, Hypertension Other Cardiovascular History: mitral,leaking valve Gastrointestinal History: Reports: GERD, Helicobacter Pylori Other Gastrointestinal History: e.coli, unsure if had h pilori Musculoskeletal History: Reports: Back Pain, Chronic Hematologic History: Reports: Anticoagulation Therapy, Other (See Below) Other Hematologic History: blood clots to legs - Past Surgical History GI Surgical History: Reports: Appendectomy, Cholecystectomy, Hernia Repair/Other Other GI Surgeries/Procedures: hiatial Female Surgical History: Reports: Hysterectomy, Oophorectomy, Tubal Ligation Social & Family History - Family History Family Medical History: Noncontributory - Tobacco Use Smoking Status *Q: Current Every Day Smoker Years of Tobacco use: 30 Packs/Tins Daily: 0.5 - Caffeine Use Caffeine Use: Reports: None - Recreational Drug Use Recreational Drug Use: No - Living Situation & Occupation Living situation: Reports: Occupation: Unemployed Review of Systems - Review of Systems Review Of Systems: See Below Constitutional: Reports: No Symptoms Eyes: Reports: Other (Complains of pain around her left eye but vision is unchanged.) Ears: Reports: No Symptoms Nose: Reports: No Symptoms Mouth/Throat: Reports: No Symptoms Respiratory: Reports: No Symptoms Cardiovascular: Reports: No Symptoms, Other (Has had previous mitral valve replacement.) GI/Abdominal: Reports: No Symptoms Genitourinary: Reports: No Symptoms Musculoskeletal: Reports: Other (Severe pain entire left lower extremity. Mild pain left arm as well.) Skin: Reports: No Symptoms Neurological: Reports: Other (Constant pain up her back and has had recent trigger point injections last week Sunday or Sunday) Psychiatric: Reports: Anxiety ED EXAM, GENERAL - Physical Exam Exam: See Below Exam Limited By: No Limitations General Appearance: Alert, WD/WN, Moderate Distress (In a good deal of pain quite tearful.) Eye Exam: Bilateral Eye: Normal Inspection Neck: Normal Inspection, Supple, Non-Tender, Full Range of Motion. No: Lymphadenopathy (L), Lymphadenopathy (R) Respiratory/Chest: No Respiratory Distress, Lungs Clear, Normal Breath Sounds, No Accessory Muscle Use, Chest Non-Tender Cardiovascular: Normal Peripheral Pulses, Regular Rate, Rhythm, No Edema, No Gallop, No Murmur, Other (She has a palpable click due to mitral valve replacement. No murmur appreciated) Peripheral Pulses: 0: Dorsalis Pedis (L) (Pulses in the left foot were not palpable to me. They are present on Doppler ultrasound.), 3+: Dorsalis Pedis (R ) (Pulses in the left They are 2-3+ on the right side) GI/Abdominal: Normal Bowel Sounds, Soft, Non-Tender, No Organomegaly Back Exam: Normal Inspection. No: CVA Tenderness (L), CVA Tenderness (R) Extremities: Other (Left lower extremity is painful to touch take a mid and lower calf. There is no obvious distention of the tissue it is cooler to touch than the opposite side from mid thigh down suggesting embolic or partial inclusion of femoral artery.) Neurological: Alert, Oriented, CN II-XII Intact, Normal Cognition Psychiatric: Tearful Skin Exam: Warm, Dry, Intact, Other (6 early slight mottling of the left thigh appreciated.) EKG INTERPRETATION EKG Date: 12/08/18 Time: 14:28 Rhythm: NSR Rate (Beats/Min): 85 [place]: LAD-Left [place] Deviation (-42 with left anterior fascicular block pattern) P-Wave: Enlarged (Suspect by atrial hypertrophy) QRS: Other (Decreased voltage limb leads. There is Q-wave in V1 and V2 with poor R-wave progression suggesting old anteroseptal myocardial infarction. There is Q-wave in lead 3 and near Q-wave in aVF consider possible old inferior wall myocardial infarction.) QT: Normal EKG Interpretation Comments: Abnormal ECG Course - Vital Signs Last Recorded V/S: Last Vital Signs Temp 36.9 C 12/08/18 13:43 Pulse 95 12/08/18 13:43 Resp 13 12/08/18 13:43 BP 157/101 H 12/08/18 13:43 Pulse Ox 98 12/08/18 13:43 - Orders/Labs/Meds Orders: Active Orders 24 hr Category Date Time Status EKG Documentation Completion [RC] STAT Care 12/08/18 14:08 Active Labs: Laboratory Tests 12/08/18 12/08/18 12/08/18 Range/Units 14:35 14:35 14:35 WBC 10.64 H (3.98-10.04) K/mm3 RBC 5.13 (3.98-5.22) M/mm3 Hgb 13.5 (11.2-15.7) gm/L Hct 41.6 (34.1-44.9) % MCV 81.1 (79.4-94.8) fl MCH 26.3 (25.6-32.2) pg MCHC 32.5 (32.2-35.5) g/dl RDW Std Deviation 43.3 (36.4-46.3) fL Plt Count 320 (182-369) K/mm3 MPV 12.3 (9.4-12.3) fl Neutrophils % (Manual) 69 H (40-60) % Band Neutrophils % 0 (0-10) % Lymphocytes % (Manual) 27 (20-40) % Atypical Lymphs % 0 % Monocytes % (Manual) 3 (2-10) % Eosinophils % (Manual) 0 L (0.7-5.8) % Basophils % (Manual) 1 (0.1-1.2) Platelet Estimate Adequate RBC Morph Comment Normal PT 43.0 H (9.5-12.1) SECONDS INR 4.05 APTT 53 H (24-31) SECONDS Sodium 135 L (136-145) mEq/L Potassium 4.5 (3.5-5.1) mEq/L Chloride 101 (98-107) mEq/L Carbon Dioxide 24 (21-32) mEq/L Anion Gap 14.5 (5-15) BUN 13 (7-18) mg/dL Creatinine 0.7 (0.55-1.02) mg/dL Est Cr Clr Drug Dosing 83.03 mL/min Estimated GFR (MDRD) > 60 (>60) mL/min BUN/Creatinine Ratio 18.6 H (14-18) Glucose 92 (74-106) mg/dL Lactic Acid (0.4-2.0) mmol/L Calcium 9.4 (8.5-10.1) mg/dL Magnesium 2.2 (1.8-2.4) mg/dl Total Bilirubin 0.6 (0.2-1.0) mg/dL AST 26 (15-37) U/L ALT 32 (14-59) U/L Alkaline Phosphatase 85 (46-116) U/L Creatine Kinase 92 (26-192) U/L C-Reactive Protein 4.3 H* (<1.0) mg/dL Total Protein 7.9 (6.4-8.2) g/dl Albumin 4.0 (3.4-5.0) g/dl Globulin 3.9 gm/dL Albumin/Globulin Ratio 1.0 (1-2) Urine Color (Yellow) Urine Appearance (Clear) Urine pH (5.0-8.0) Ur Specific [place] (1.005-1.030) Urine Protein (Negative) Urine Glucose (UA) (Negative) Urine Ketones (Negative) Urine Occult Blood (Negative) Urine Nitrite (Negative) Urine Bilirubin (Negative) Urine Urobilinogen (0.2-1.0) Ur Leukocyte Esterase (Negative) Urine RBC (0-5) /hpf Urine WBC (0-5) /hpf Ur Epithelial Cells (0-5) /hpf Urine Bacteria (FEW) /hpf Urine Mucus (FEW) /hpf 12/08/18 12/08/18 Range/Units 14:35 16:50 WBC (3.98-10.04) K/mm3 RBC (3.98-5.22) M/mm3 Hgb (11.2-15.7) gm/L Hct (34.1-44.9) % MCV (79.4-94.8) fl MCH (25.6-32.2) pg MCHC (32.2-35.5) g/dl RDW Std Deviation (36.4-46.3) fL Plt Count (182-369) K/mm3 MPV (9.4-12.3) fl Neutrophils % (Manual) (40-60) % Band Neutrophils % (0-10) % Lymphocytes % (Manual) (20-40) % Atypical Lymphs % % Monocytes % (Manual) (2-10) % Eosinophils % (Manual) (0.7-5.8) % Basophils % (Manual) (0.1-1.2) Platelet Estimate RBC Morph Comment PT (9.5-12.1) SECONDS INR APTT (24-31) SECONDS Sodium (136-145) mEq/L Potassium (3.5-5.1) mEq/L Chloride (98-107) mEq/L Carbon Dioxide (21-32) mEq/L Anion Gap (5-15) BUN (7-18) mg/dL Creatinine (0.55-1.02) mg/dL Est Cr Clr Drug Dosing mL/min Estimated GFR (MDRD) (>60) mL/min BUN/Creatinine Ratio (14-18) Glucose (74-106) mg/dL Lactic Acid 0.9 (0.4-2.0) mmol/L Calcium (8.5-10.1) mg/dL Magnesium (1.8-2.4) mg/dl Total Bilirubin (0.2-1.0) mg/dL AST (15-37) U/L ALT (14-59) U/L Alkaline Phosphatase (46-116) U/L Creatine Kinase (26-192) U/L C-Reactive Protein (<1.0) mg/dL Total Protein (6.4-8.2) g/dl Albumin (3.4-5.0) g/dl Globulin gm/dL Albumin/Globulin Ratio (1-2) Urine Color Dark yellow (Yellow) Urine Appearance Clear (Clear) Urine pH 6.5 (5.0-8.0) Ur Specific [place] 1.015 (1.005-1.030) Urine Protein Negative (Negative) Urine Glucose (UA) Trace H (Negative) Urine Ketones Negative (Negative) Urine Occult Blood Negative (Negative) Urine Nitrite Positive H (Negative) Urine Bilirubin Negative (Negative) Urine Urobilinogen 0.2 (0.2-1.0) Ur Leukocyte Esterase Negative (Negative) Urine RBC 0-5 (0-5) /hpf Urine WBC 0-5 (0-5) /hpf Ur Epithelial Cells 0-5 (0-5) /hpf Urine Bacteria Few (FEW) /hpf Urine Mucus Not seen (FEW) /hpf Meds: Medications Discontinued Medications Generic Name Dose Route Start Last Admin Trade Name Freq PRN Reason Stop Dose Admin Diphenhydramine HCl 50 mg 12/08/18 15:33 12/08/18 15:38 Benadryl IVPUSH 12/08/18 15:34 50 mg ONETIME ONE Administration Fentanyl 50 mcg 12/08/18 15:13 12/08/18 15:19 Sublimaze IVPUSH 12/08/18 15:14 50 mcg ONETIME ONE Administration Hydromorphone HCl 1 mg 12/08/18 14:17 12/08/18 14:35 Dilaudid IVPUSH 12/08/18 14:18 1 mg ONETIME ONE Administration Sodium Chloride 1,000 mls @ 150 mls/hr 12/08/18 14:15 12/08/18 14:35 Normal Saline IV 150 mls/hr ASDIRECTED BILL Administration Iopamidol 100 ml 12/08/18 16:03 12/08/18 16:22 Isovue-370 (76%) IVPUSH 12/08/18 16:04 100 ml ONETIME ONE Administration Iopamidol 50 ml 12/08/18 16:04 12/08/18 16:22 Isovue-370 (76%) IVPUSH 12/08/18 16:05 50 ml ONETIME ONE Administration Lorazepam 0.5 mg 12/08/18 15:14 12/08/18 15:19 Ativan IVPUSH 12/08/18 15:15 0.5 mg ONETIME ONE Administration Methylprednisolone Sodium Succinate 125 mg 12/08/18 15:33 12/08/18 15:38 Solu-Medrol IVPUSH 12/08/18 15:34 125 mg ONETIME ONE Administration Metoclopramide HCl 7.5 mg 12/08/18 14:17 12/08/18 14:35 Reglan IVPUSH 12/08/18 14:18 7.5 mg ONETIME ONE Administration - Radiology Interpretation Free Text/Narrative:: 48-year-old female presents to the ED with acute onset of severe left lower extremity pain particularly in the calf area since about 0120 hrs. this morning. Pain is kept her awake the rest of the night. Pain is gradually intensifying. She will not quantify that she has any numbness or tingling in the leg. She can't walk on the leg due to pain and clumsiness. She apparently has a blood dyscrasia where she clots easily and is been on Coumadin for many years. She reports she was sick last week and may have vomited up her Coumadin 3 or 4 days in a row is causing her to become somewhat therapeutic. On clinical examination she appears to have an embolic embolic phenomena involving the left femoral artery or higher up. Plan routine labs to include a PTT and INR. Pending what her INR will decide on treatment such as heparinization and whether CTA of the lower extremities can be done to identify occlusion. IV will be normal saline at 150 mils per hour. Given Dilaudid 1 mg IV and Reglan 7.5 mg IV for pain relief. Labs to include a lactic acid and total CPK. - Re-Assessments/Exams Free Text/Narrative Re-Assessment/Exam: 12/08/18 15:17 Labs reveal a total white count of 10.64. Differential 69% neutrophils with no band cells. Hemoglobin is 13.5 with hematocrit of 41.6. MCV is normal at 81.1. Platelet count normal 320,000. PT is 43.0 with an INR of 4.05 i.e. slightly sick supratherapeutic. PTT is 53. Sodium 135 with a potassium of 4.5. Chloride is 101 with a bicarbonate 24. And a gap is 14.5. BUN is 13 with a creatinine of 0.7 GFR is greater than 60. Glucose is 92 with a lactic acid of 0.9. Calcium is 9.4. Magnesium is 2.2. Bilirubin 0.6. AST 26 with an ALT of 32. Alkaline phosphatase is 85. Total CPK is 92. C-reactive protein is elevated at 4.3. Patient is now complaining of epigastric lower retrosternal chest pressure discomfort. Will be given fentanyl 50 g IV and Ativan 0.5 mg IV for pain relief. I will now proceed with CT angiogram of the aorta with runoff. Unfortunately the patient reports that she has had allergic reaction to iodine contrast when given intravenously in the past. Mostly hives. She has some swelling he had CTs done with contrast after receiving Benadryl IV. Will therefore be given Benadryl 50 mg IV with Solu-Medrol 125 mg IV with ID of performing the test and a half an hour. 12/08/18 15:34 reports chest pain is much improved barely present at this time after above dose of Dilaudid and Ativan. 12/08/18 16:13 limited left lower extremity deep venous ultrasound performed. Thrombus is identified within the left common femoral vein which is echogenic and does not cause complete occlusion and is felt about with a chronic clot. No evidence of acute deep venous thrombosis identified. No evidence of acute deep venous thrombosis within the left lower extremity or right common femoral vein. Slightly elevated velocity measurement within the distal posterior tibial artery suspicious for slightly proximal stenosis with poststenotic increase in velocity possibly measurements are otherwise within normal limits no arterial occlusion is appreciated in the left lower extremity 12/08/18 17:47 CT aortoiliac angiogram with runoff performed. Essentially is within normal limits showing no signs of analysis or occlusion. It therefore appears that her current pain is not vascular in origin. Her elevated PT/INR I suspect she had a spontaneous hemorrhage into her gastrocnemius muscles in her upper calf causing her current pain and inability to weight-bear. Therefore I will be placing her on crutches and to be nonweightbearing. Pain medication be Percocet tabs 5/325 one or 2 every 4-6 hours needed for pain relief. She is to put her Coumadin on hold for 2 days and then resume 7.5 mg one day alternating with 5 mg the next day and have her PT/INR checked next Sunday. She is to elevate her left foot is much as possible and ice pack to the calf for one half hour out of every 4 hours for the next 2 days. Departure - Departure Time of Disposition: 17:50 Disposition: Home, Self-Care 01 Condition: Fair Clinical Impression: Gastrocnemius muscle strain Qualifiers: Encounter type: initial encounter Laterality: left Qualified Code(s): S86.112A - Strain of other muscle(s) and tendon(s) of posterior muscle group at lower leg level, left leg, initial encounter - Discharge Information *PRESCRIPTION DRUG MONITORING PROGRAM REVIEWED*: Not Applicable *COPY OF PRESCRIPTION DRUG MONITORING REPORT IN PATIENT ERUM: Not Applicable Prescriptions: oxyCODONE HCl/Acetaminophen [Percocet 5-325 mg Tablet] 1 - 2 each PO Q4H PRN # 20 tablet PRN Reason: pain relief. Instructions: Muscle Strain, [id number] Referrals: Caroline Peralta MD [Primary Care Provider] - Forms: ED Department Discharge Additional Instructions: Evaluation in the emergency room today in regards to acute onset of severe pain left calf that occurred at 0120 hrs. this morning while he was sleeping. Concern arose on examination as it appeared to be decreased blood flow to your left leg with diminished pulses by feel. All pulses are only appreciated by Doppler ultrasound. Ultrasound of the left lower extremity revealed that the arteries appear to be patent with no abnormalities. CT angiogram was performed because of development of central chest pain and concern for possible dissection of the aorta causing current symptoms. This also proved to be completely normal with normal blood flow to from the heart lungs abdomen and good flow all the way down to both lower extremities. It appears the pain is most likely from spontaneous hemorrhage within to the calf muscles called the gastrocnemius muscles. Likely occurred because her Coumadin time is elevated at 4.02. Normal value should be around 2.5. Therefore her Coumadin medication has to be put on hold for 2 days and then resume 7.5 mg alternating with 5 mg every other day and have the PT INR checked again on Sunday this coming week. Treatment is to be nonweightbearing crutch walking until able to weight-bear normally which will probably be 10-12 days. Elevate the left foot is much as possible and apply ice pack to the calf for one half hour out of every 4 hours for the next 36 hours. After this may apply heat pack to the area for one half hour out of every 4 hours. Pain medicine is Percocet 5/325 mg one or 2 tablets every 4-6 hours as needed for pain relief. - My Orders Last 24 Hours: My Active Orders 12/08/18 14:08 EKG Documentation Completion [RC] STAT - Assessment/Plan Last 24 Hours: My Active Orders 12/08/18 14:08 EKG Documentation Completion [RC] STAT
[2018-12-08] MEDS ORDERED: fentaNYL 100 MCG/2 ML SDV IVPUSH ONE (15:13)
[2018-12-08] MEDS ORDERED: LORazepam 2 MG/ML SDV IVPUSH ONE (15:14)
[2018-12-08] MEDS ORDERED: methylPREDNISolone Sodium Succinate 125 MG/2 ML SDV IVPUSH ONE (15:33)
[2018-12-08] MEDS ORDERED: diphenhydrAMINE 50 MG/ML SDV IVPUSH ONE (15:33)
--- NOTE | 2018-12-08 15:54 | US ---
Limited left lower extremity deep venous ultrasound: Multiple real-time images were obtained of the right common femoral vein, left common femoral vein, proximal greater saphenous vein, superficial femoral vein, popliteal and posterior tibial veins. Findings: Thrombus is identified within the left common femoral vein which is echogenic and does not cause complete occlusion and is felt compatible with a chronic clot. No evidence of acute deep venous thrombosis. Impression: 1. 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 2. No evidence of acute deep venous thrombosis within the left lower extremity or right common femoral vein. Diagnostic code #3 Arterial ultrasound of lower extremity (left side): Duplex and color flow imaging was obtained of the left common femoral, superficial femoral, popliteal, posterior tibial and peroneal arteries. Findings: Systolic velocity measurements: Common femoral: 1.20 m/s Proximal SFA: 0.81 m/s Mid SFA: 0.93 m/s Distal SFA: 0.54 m/s Proximal peroneal: 0.57 Mid peroneal: 0.62 Distal peroneal: 0.48 Proximal posterior tibial: 0.73 Mid posterior tibial: 0.83 Distal posterior tibial 1.23 Dorsalis pedis: 0.33 Posterior tibial at ankle: 0.85 Impression: 1. Slightly elevated velocity measurement within the distal posterior tibial artery suspicious for slightly proximal stenosis with poststenotic increase in velocity. 2. Velocity measurements are otherwise within normal limits. No arterial occlusion is seen. Diagnostic code #3
[2018-12-08] MEDS ORDERED: Iopamidol 755 Mg/ML 100 ML Bottle IVPUSH ONE (16:03)
[2018-12-08] MEDS ORDERED: Iopamidol 755 MG/ML 50 ML Bottle IVPUSH ONE (16:04)
--- NOTE | 2018-12-08 17:17 | CT ---
CT chest Technique: Multiple axial sections through the chest were obtained. Intravenous contrast was utilized. Study performed as a pulmonary angiogram protocol. Findings: Pulmonary arteries are well-opacified. No filling defects are seen to indicate pulmonary embolism. Mediastinum and hilar regions show no adenopathy or mass. Thoracic aorta appears unremarkable. No pericardial thickening is seen. Moderately large hiatal hernia is again noted. No axillary adenopathy is seen. Small subpleural bleb is noted posteriorly within the left upper lung. Lungs show no acute parenchymal change. No pleural effusions are seen. No nodule is identified. No pneumothorax is seen. Previous sternotomy is noted. Mild scattered degenerative endplate spurring is noted within the spine. No acute osseous abnormality is appreciated. Impression: 1. No findings of pulmonary embolism. 2. Other incidental findings as noted above. Nothing acute is appreciated. Diagnostic code #2
--- NOTE | 2018-12-08 17:17 | CT ---
CT aortoiliac angiogram with runoff Technique: Multiple axial sections were obtained from above the dome of the diaphragm inferiorly through the ankles. Intravenous contrast was utilized during the arterial phase with reconstructed MIP images obtained. Findings: Aorta shows no aneurysm or occlusion. Celiac axis and superior mesenteric artery showed no stenosis. Right and left renal arteries show no stenosis. 2 left-sided renal arteries are noted. Inferior mesenteric artery is patent. External and internal iliac arteries as well as common iliac arteries are patent with no stenosis. Both extremities shows no stenosis within the common femoral or superficial femoral arteries. Popliteal arteries appear unremarkable. Three-vessel runoff is noted within both lower extremities. Prior ultrasound finding within the distal left posterior tibial artery not appreciated on this exam. Dorsalis pedis and posterior tibial arteries are opacified within the ankle. Other findings: No soft tissue abnormality is seen within the right or left lower extremity. Liver shows a small low density lesion within the posterior right lobe measuring about 4 mm in size which is too small to characterize by Hounsfield unit measurement but most likely represents a minimal cyst. No additional finding is seen within the liver. Spleen appears normal. Moderately large hiatal hernia is seen. Adrenal glands show no nodule. Surgical clips are seen from prior cholecystectomy. Adrenal glands show no nodule. Kidneys show symmetric contrast enhancement without hydronephrosis or discrete mass. Aorta shows no aneurysm. Pancreas appears within normal limits. No retroperitoneal adenopathy or mesenteric abnormalities are seen. No pelvic mass or adenopathy is identified. Appendix is not visualized with certainty. Bone window settings were reviewed which shows mild degenerative change within the spine. Impression: 1. Aortoiliac angiogram and runoff shows no discrete stenosis or occlusion. Findingsseen on prior ultrasound is not seen on this exam. 2. Moderately large hiatal hernia and other incidental findings. Diagnostic code #2
--- NOTE | 2018-12-08 17:19 | CR ---
Chest: Portable view of the chest was obtained. Comparison: Prior chest x-ray of 11/29/18. Heart size and mediastinum are normal. Previous sternotomy noted with prosthetic heart valve. Lungs are clear with no acute parenchymal change. Bony structures are grossly intact. Impression: 1. Nothing acute is seen on portable chest x-ray. Diagnostic code #1
== END 2018-12-08 18:15 | disposition home or self-care (01) ==
LOC: JD.ED 13:32
DX: S86.112A Strain of other muscle(s) and tendon(s) of posterior muscle group at lower leg level, left leg, initial encounter (principal); I10 Essential (primary) hypertension; F17.210 Nicotine dependence, cigarettes, uncomplicated; Z91.013 Allergy to seafood; Z91.041 Radiographic dye allergy status; Z79.899 Other long term (current) drug therapy; X58.XXXA Exposure to other specified factors, initial encounter
CPT/HCPCS: 36415; 71045; 71275; 75635; 80053; 81001; 82550; 83605; 83735; 85007; 85027; 85610; 85730; 86140; 93005; 93925; 96361; 96374; 96375; 99284; J1170; J1200; J2060; J2765; J2930; J3010; J7040; Q9967

== ENCOUNTER 2019-02-10 12:29 | Emergency (ER) | payer BC ==
--- NOTE | 2019-02-10 14:19 | EDM.PDOC ---
ED HPI GENERAL MEDICAL PROBLEM - General Chief Complaint: Lower Extremity Injury/Pain Stated Complaint: LEG PAIN Time Seen by Provider: 02/10/19 13:50 Source of Information: Reports: Patient, RN Notes Reviewed History Limitations: Reports: No Limitations - History of Present Illness INITIAL COMMENTS - FREE TEXT/NARRATIVE: The patient states that she struck her left leg on her bed frame 2 days ago, 02/08/2019, then developed pain involving her entire left lower extremity - both the thigh and the leg, anterior and posterior, yesterday. The patient indicates the source of the pain is a (small) hematoma to her anterolateral proximal left leg. 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 She states that her INR was last checked around 2 weeks ago, resulting the therapeutic at 2.4. Her Coumadin is managed at the Coumadin clinic. The patient is concerned that her left lower extremity pain may be due to a DVT. The patient's PCP is Olivia Palacios. The patient did not volunteer it, but she is under pain management contract with [facility], in [place]. 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 Left Lower Leg Pain Score (Numeric/FACES): 10 - Related Data Allergies Allergy/AdvReac Type Severity Reaction Status Date / Time Iodinated Contrast- Oral and Allergy Rash Verified 02/10/19 14:25 IV Dye seafood Allergy Rash Uncoded 02/10/19 14:25 Home Meds: Home Meds Lisinopril 2.5 mg PO DAILY 10/14/18 [History] Omeprazole 40 mg PO DAILY 10/14/18 [History] Warfarin [Coumadin] 7.5 mg PO DAILY 11/22/18 [History] Simvastatin [Zocor] 10 mg PO BEDTIME 02/10/19 [History] Past Medical History Cardiovascular History: Reports: Blood Clots/VTE/DVT, High Cholesterol, Hypertension Gastrointestinal History: Reports: GERD Musculoskeletal History: Reports: Back Pain, Chronic Psychiatric History: Reports: Anxiety Hematologic History: Reports: Anticoagulation Therapy (Coumadin) - Past Surgical History Cardiovascular Surgical History: Reports: Valve Replacement (jose, mechanical) , Vascular Surgery (IVC filters) GI Surgical History: Reports: Appendectomy, Cholecystectomy Female Surgical History: Reports: Hysterectomy, Oophorectomy, Tubal Ligation Social & Family History - Family History Family Medical History: Noncontributory - Caffeine Use Caffeine Use: Reports: None - Living Situation & Occupation Living situation: Reports: Occupation: Unemployed Review of Systems - Review of Systems Review Of Systems: ROS reveals no pertinent complaints other than HPI. ED EXAM, GENERAL - Physical Exam Exam: See Below Exam Limited By: No Limitations General Appearance: Alert, WD/WN Extremities: Other (There is a visible ecchymosis, measuring approximately 2.5 cm diameter, overlying an approximately 3 cm diameter small hematoma to the anterolateral proximal left leg. No other visible abnormalities to the left lower extremity, such as swelling, erythema, or abrasions. Good dorsalis pedis and posterior tibialis pulses on the left, comparable to the right, and both lower semi-'s are warm to palpation, even to the toes. The patient denies any sensory diminishment to her left lower extremity, when compared to the right.) Course - Vital Signs Last Recorded V/S: Last Vital Signs Temp 37.0 C 02/10/19 12:55 Pulse 77 02/10/19 12:55 Resp 20 02/10/19 12:55 BP 140/99 H 02/10/19 12:55 Pulse Ox 96 02/10/19 12:55 - Orders/Labs/Meds Orders: Active Orders 24 hr Category Date Time Status INR,PT,PROTHROMBIN TIME [COAG] Stat Lab 02/10/19 14:17 Ordered - Re-Assessments/Exams Free Text/Narrative Re-Assessment/Exam: 02/10/19 14:17 The patient has a bruise and small hematoma to her anterolateral left leg, but she is complaining of pain to her entire left lower extremity, which does not seem plausible based on her injury. She is concerned that she has a DVT to the left lower extremity, although, again, I don't how that would cause pain to, for example, her anterior left leg, where there are no deep veins. I think the patient is primarily here for pain medication, however, I pointed out to her that she is under contract with a pain service, and therefore I cannot give her pain medication. The patient tried to tell me that she is not going to continue with the pain service, however, that does not relieve her obligation of not seeking pain medication outside of her contract today. For today's purposes, I have ordered an INR. If it is subtherapeutic, I will order a Doppler ultrasound of the lower extremity, however, if it is therapeutic , no further workup is necessary. 02/10/19 14:21 Notified by Abby ESCALONA that the patient wants to leave without her INR being checked. This confirms that the patient is drug-seeking, as she is interested only in getting pain medication, not in whether or not there is a medical problem. Departure - Departure Time of Disposition: 14:22 Disposition: Home, Self-Care 01 Condition: Good Clinical Impression: Drug-seeking behavior - Discharge Information *PRESCRIPTION DRUG MONITORING PROGRAM REVIEWED*: Not Applicable *COPY OF PRESCRIPTION DRUG MONITORING REPORT IN PATIENT ERUM: Not Applicable Referrals: Olivia Palacios MD [Primary Care Provider] - Forms: ED Department Discharge Additional Instructions: You were seen in the emergency room for entire left lower extremity pain after striking your leg on your bed frame on Sunday. An evaluation to make sure that you do not have a blood clot was ordered, however, you have declined that workup. As discussed, you are under contract with a pain management service, therefore you are not permitted to seek pain medicines outside of that contract. Follow-up with your PCP, Olivia Palacios, as needed. If any other problems, please do not hesitate to return to the ER. - My Orders Last 24 Hours: My Active Orders 02/10/19 14:17 INR,PT,PROTHROMBIN TIME [COAG] Stat - Assessment/Plan Last 24 Hours: My Active Orders 02/10/19 14:17 INR,PT,PROTHROMBIN TIME [COAG] Stat
== END 2019-02-10 14:30 | disposition home or self-care (01) ==
LOC: JD.ED 12:29
DX: S80.12XA Contusion of left lower leg, initial encounter (principal); Z76.5 Malingerer [conscious simulation]; E78.00 Pure hypercholesterolemia, unspecified; I10 Essential (primary) hypertension; K21.9 Gastro-esophageal reflux disease without esophagitis; Z95.5 Presence of coronary angioplasty implant and graft; W22.8XXA Striking against or struck by other objects, initial encounter; Z91.041 Radiographic dye allergy status; Z91.013 Allergy to seafood; Z79.899 Other long term (current) drug therapy; Z79.01 Long term (current) use of anticoagulants
CPT/HCPCS: 99281; 99283

== ENCOUNTER 2019-02-10 17:38 | Emergency (ER) | payer BC ==
[2019-02-10] MEDS ORDERED: Acetaminophen/HYDROcodone 325-5 MG Tab PO ONE (18:43)
--- NOTE | 2019-02-10 19:26 | EDM.PDOC ---
ED HPI GENERAL MEDICAL PROBLEM - General Chief Complaint: Lower Extremity Injury/Pain Stated Complaint: LEG PAIN WANTS TO SEE A DIFFERENT DOCTOR Time Seen by Provider: 02/10/19 19:00 Source of Information: Reports: Patient History Limitations: Reports: No Limitations - History of Present Illness INITIAL COMMENTS - FREE TEXT/NARRATIVE: Patient is a 48-year-old female who presents ED complaining of left lower leg pain. Patient states she struck her left leg on her bed frame approximately 2 days ago. She then developed pain involving her entire left lower extremity involving the medial aspect of the upper thigh and also along the posterior aspect of the lower leg. She has a history of DVT to the affected extremity. States she has to IVC filters to the left leg. Patient was evaluated earlier today in the emergency department but left prior to having the INR checked. Patient was found to be in a pain contract and did not provide this information on initial examination. Patient is on Coumadin for a mechanical mitral valve. Last INR was checked 2 weeks ago with results of 2.4. She is concerned she may have a DVT. Left Lower Leg Pain Score (Numeric/FACES): 8 - Related Data Allergies Allergy/AdvReac Type Severity Reaction Status Date / Time Iodinated Contrast- Oral and Allergy Rash Verified 02/10/19 17:59 IV Dye seafood Allergy Rash Uncoded 02/10/19 14:25 Home Meds: Home Meds Lisinopril 2.5 mg PO DAILY 10/14/18 [History] Omeprazole 40 mg PO DAILY 10/14/18 [History] Warfarin [Coumadin] 7.5 mg PO DAILY 11/22/18 [History] Simvastatin [Zocor] 10 mg PO BEDTIME 02/10/19 [History] Past Medical History Cardiovascular History: Reports: Blood Clots/VTE/DVT, High Cholesterol, Hypertension Other Cardiovascular History: mitral,leaking valve Gastrointestinal History: Reports: GERD Other Gastrointestinal History: e.coli, unsure if had h pilori Musculoskeletal History: Reports: Back Pain, Chronic Psychiatric History: Reports: Anxiety Hematologic History: Reports: Anticoagulation Therapy Other Hematologic History: blood clots to legs - Past Surgical History Cardiovascular Surgical History: Reports: Valve Replacement, Vascular Surgery GI Surgical History: Reports: Appendectomy, Cholecystectomy Female Surgical History: Reports: Hysterectomy, Oophorectomy, Tubal Ligation Social & Family History - Family History Family Medical History: Noncontributory - Tobacco Use Smoking Status *Q: Never Smoker - Caffeine Use Caffeine Use: Reports: None - Recreational Drug Use Recreational Drug Use: No - Living Situation & Occupation Living situation: Reports: Occupation: Unemployed Review of Systems - Review of Systems Review Of Systems: See Below Constitutional: Denies: Chills, Diaphoresis, Fever, Weakness Respiratory: Reports: No Symptoms Cardiovascular: Reports: No Symptoms GI/Abdominal: Reports: No Symptoms Musculoskeletal: Reports: Back Pain (Low back pain chronic), Leg Pain (Pain to the posterior aspect of the left calf that radiates into the left inner thigh with straining of the leg and also with palpation. Some swelling noted to the left calf in comparison to the right. She has a bruise to the left lateral calf from recent contusion. No sensory deficits distally.) Skin: Reports: Bruising (Lateral aspect of the left calf.) Neurological: Reports: Difficulty Walking (Secondary to pain left calf). Denies : Numbness, Tingling ED EXAM, GENERAL - Physical Exam Exam: See Below Exam Limited By: No Limitations General Appearance: Alert, WD/WN, Mild Distress Eye Exam: Bilateral Eye: Normal Inspection Ears: Hearing Grossly Normal Nose: Normal Inspection Throat/Mouth: Normal Voice, No Airway Compromise Head: Atraumatic, Normocephalic Neck: Normal Inspection, Supple Respiratory/Chest: No Respiratory Distress, Lungs Clear, Normal Breath Sounds, No Accessory Muscle Use, Chest Non-Tender Cardiovascular: Normal Peripheral Pulses, Regular Rate, Rhythm, Systolic Murmur (Systolic click over the left lateral chest border along the nipple line consistent with a history of mechanical mitral valve replacement.) Peripheral Pulses: 2+: Radial (L), Radial (R), Posterior Tibial (L), Posterior Tibial (R) GI/Abdominal: Normal Bowel Sounds, Soft, Non-Tender, No Organomegaly, No Distention Back Exam: Normal Inspection Extremities: Other (Increased swelling to the left calf interpretation the right. Bruising noted to the left lateral aspect of the calf from recent contusion from hitting the edge of the bed. Pain with palpation radiates into the left upper thigh. She does have a history of DVTs with filter to the left popliteal, and inguinal region.) Neurological: Alert, Oriented, CN II-XII Intact, Normal Cognition, No Motor/ Sensory Deficits Psychiatric: Normal Affect, Normal Mood Skin Exam: Warm, Dry Course - Vital Signs Last Recorded V/S: Last Vital Signs Temp 97.8 F 02/10/19 17:57 Pulse 75 02/10/19 17:57 Resp 16 02/10/19 17:57 BP Pulse Ox 100 02/10/19 17:57 - Orders/Labs/Meds Labs: Laboratory Tests 02/10/19 02/10/19 02/10/19 Range/Units 18:46 18:46 18:46 WBC 8.23 (3.98-10.04) K/mm3 RBC 5.05 (3.98-5.22) M/mm3 Hgb 13.1 (11.2-15.7) gm/L Hct 40.7 (34.1-44.9) % MCV 80.6 (79.4-94.8) fl MCH 25.9 (25.6-32.2) pg MCHC 32.2 (32.2-35.5) g/dl RDW Std Deviation 48.2 H (36.4-46.3) fL Plt Count 259 (182-369) K/mm3 MPV 12.7 H (9.4-12.3) fl Neutrophils % (Manual) 65 H (40-60) % Band Neutrophils % 1 (0-10) % Lymphocytes % (Manual) 29 (20-40) % Atypical Lymphs % 0 % Monocytes % (Manual) 3 (2-10) % Eosinophils % (Manual) 2 (0.7-5.8) % Basophils % (Manual) 0 L (0.1-1.2) Platelet Estimate Adequate RBC Morph Comment Normal PT 29.5 H (9.5-12.1) SECONDS INR 2.76 APTT 41 H (24-31) SECONDS Sodium 140 (136-145) mEq/L Potassium 3.7 (3.5-5.1) mEq/L Chloride 104 (98-107) mEq/L Carbon Dioxide 26 (21-32) mEq/L Anion Gap 13.7 (5-15) BUN 11 (7-18) mg/dL Creatinine 0.8 (0.55-1.02) mg/dL Est Cr Clr Drug Dosing TNP Estimated GFR (MDRD) > 60 (>60) mL/min BUN/Creatinine Ratio 13.8 L (14-18) Glucose 91 (74-106) mg/dL Calcium 9.5 (8.5-10.1) mg/dL Total Bilirubin 0.6 (0.2-1.0) mg/dL AST 26 (15-37) U/L ALT 34 (14-59) U/L Alkaline Phosphatase 76 (46-116) U/L Total Protein 7.8 (6.4-8.2) g/dl Albumin 4.1 (3.4-5.0) g/dl Globulin 3.7 gm/dL Albumin/Globulin Ratio 1.1 (1-2) Meds: Medications Discontinued Medications Generic Name Dose Route Start Last Admin Trade Name Freq PRN Reason Stop Dose Admin Hydrocodone Bitart/Acetaminophen 1 tab 02/10/19 18:43 02/10/19 18:47 [place] 325-5 Mg PO 02/10/19 18:44 1 tab ONETIME ONE Administration - Re-Assessments/Exams Free Text/Narrative Re-Assessment/Exam: I have reviewed recent ED visit earlier today. Ordered CBC chem 14, INR, and also one [place] 5325 by mouth. VLduplex of the left lower extremity has been ordered. Labs reviewed: CBC and chemistry panel were essentially normal. INR is 2.76 within therapeutic range. Ultrasound of the left lower extremity impression: Slight scarring believe to be present within the left common femoral vein as described above. No evidence of DVT within the left lower extremity are within the right common femoral vein. 2047 Discussed results of the labs and also ultrasound with the patient. Wally wrap will be applied to the left calf. Return precautions were discussed with the patient. She will see her PCP the end of this week for reevaluation. Patient agreed with plan and had no further questions or concerns. Discharge instructions as documented. Departure - Departure Time of Disposition: 20:49 Disposition: Home, Self-Care 01 Condition: Good Clinical Impression: Contusion of left calf Qualifiers: Encounter type: initial encounter Qualified Code(s): S80.12XA - Contusion of left lower leg, initial encounter Gastrocnemius muscle strain Qualifiers: Encounter type: initial encounter Laterality: left Qualified Code(s): S86.112A - Strain of other muscle(s) and tendon(s) of posterior muscle group at lower leg level, left leg, initial encounter - Discharge Information Instructions: Muscle Strain, [id number], Contusion, [id number] Referrals: PCP,Unknown [Primary Care Provider] - Forms: ED Department Discharge Additional Instructions: Wear the Wally wrap to the affected area for the next 5-7 days. Utilize heat and ice with gentle massage to the affected area. Refrain from any activities that cause worsening discomfort. See your PCP the end of this week for reevaluation. Return to the E.D. for any new or worsening symptoms.
--- NOTE | 2019-02-10 20:25 | US ---
Left lower extremity deep venous ultrasound: Duplex and color flow imaging was obtained the left common femoral, superficial femoral, popliteal, posterior tibial and peroneal veins. Right common femoral vein is also evaluated. Findings: Mild lack of compression is seen within left common femoral vein most likely due to scarring from previous intervention. Normal phasic flow and augmentation is seen within this vein. Other veins show normal phasic flow, augmentation and compression. Impression: 1. Slight scarring believed to be present with the left common femoral vein as described above. 2. No evidence of deep venous thrombosis within left lower extremity or within the right common femoral vein. Diagnostic code #2
== END 2019-02-10 20:55 | disposition home or self-care (01) ==
LOC: JD.ED 17:38
DX: S86.112A Strain of other muscle(s) and tendon(s) of posterior muscle group at lower leg level, left leg, initial encounter (principal); I10 Essential (primary) hypertension; K21.9 Gastro-esophageal reflux disease without esophagitis; F41.9 Anxiety disorder, unspecified; Z79.01 Long term (current) use of anticoagulants; Z79.899 Other long term (current) drug therapy; Z91.018 Allergy to other foods; Z91.041 Radiographic dye allergy status; W22.8XXA Striking against or struck by other objects, initial encounter
CPT/HCPCS: 36415; 80053; 85007; 85027; 85610; 85730; 93971; 99284; A9270; 99283

== ENCOUNTER 2019-07-31 02:28 | Emergency (ER) | payer BC ==
[2019-07-31] MEDS ORDERED: Ondansetron 4 MG/2 ML SDV IVPUSH ONE (03:06)
[2019-07-31] MEDS ORDERED: HYDROmorphone 0.5 MG/0.5 ML Syringe IVPUSH ONE ×2 (03:06→04:52)
[2019-07-31] MEDS ORDERED: cefTRIAXone 1 GM in Sodium Chloride 0.9% 100 ML IV ONE (03:07)
--- NOTE | 2019-07-31 03:12 | EDM.PDOC ---
ED HPI GENERAL MEDICAL PROBLEM - General Chief Complaint: Skin Complaint Stated Complaint: swelling post op Time Seen by Provider: 07/31/19 02:55 Source of Information: Reports: Patient, Family (spouse) History Limitations: Reports: Language Barrier (patient speaks mainly greek. Her acts as her spanish interpreter. ) - History of Present Illness INITIAL COMMENTS - FREE TEXT/NARRATIVE: 48-year-old female of [place] descent presents to the ED with left hemifacial pain at the site of surgery that she had earlier yesterday. Plastic surgeon or meat counter worker excised a cancerous lesion from the left side of her face and had to do a fairly wide, deep excision. Sounds like she required undermining and a lot of bringing the skin together under tension. Patient also has a problem with a mitral valve replacement and is concerned about possibility of infecting the valve. Requesting antibiotic prophylaxis. Note without the skin wound being infected the risk of bacteremia from this surgery is very low. hours very adamant about requiring antibiotic therapy. The valve replaced about 9 years ago. She is on Coumadin daily and apparently was placed on hold for 2 days and she is to resume it tomorrow. She states the pain is constant severe and throbbing rating up to her left eye left ear and left temporal scalp. She is unable to sleep due to the sudden verity of the pain. She was not given any pain medication to take postoperatively. She has associated nausea but no vomiting. Has not eaten since surgery.. Onset: Gradual Onset Date: 07/30/19 (Gradually worsening pain since surgery was performed left satnam-face yesterday p.m.) Duration: Hour(s): Location: Reports: Face (Diffuse left satnam-facial pain at site of surgical decision of cancerous lesion along her nasolabial fold on the left side) Quality: Reports: Ache, Throbbing, Other Severity: Severe (Pulsating 910) Improves with: Reports: None Worsens with: Reports: None Context: Reports: Other (Postoperative pain at surgical site left satnam-face). Denies: Activity, Exercise, Lifting, Sick Contact, Trauma Associated Symptoms: Reports: Loss of Appetite, Malaise, Nausea/Vomiting, Weakness. Denies: Confusion, Chest Pain, Cough, cough w sputum, Diaphoresis, Fever/Chills, Headaches, Rash, Seizure (Nausea without vomiting), Shortness of Breath Treatments [employer] FORMER: Reports: Other (see below) Left Face/Facial Pain Score (Numeric/FACES): 8 - Related Data Allergies Allergy/AdvReac Type Severity Reaction Status Date / Time Iodinated Contrast Media Allergy Rash Verified 07/31/19 02:34 [Iodinated Contrast- Oral and IV Dye] seafood Allergy Rash Uncoded 07/31/19 02:34 Home Meds: Home Meds Lisinopril 2.5 mg PO DAILY 10/14/18 [History] Omeprazole 40 mg PO DAILY 10/14/18 [History] Warfarin [Coumadin] 7.5 mg PO SUTUWETHFRSA 11/22/18 [History] Simvastatin [Zocor] 10 mg PO BEDTIME 02/10/19 [History] Doxycycline [Vibramycin] 100 mg PO BID #16 cap 07/31/19 [Rx] Warfarin [Coumadin] 5 mg PO MO 07/31/19 [History] oxyCODONE HCl/Acetaminophen [Percocet 5-325 mg Tablet] 1 - 2 each PO Q4H PRN # 16 tablet 07/31/19 [Rx] Past Medical History Cardiovascular History: Reports: Blood Clots/VTE/DVT, High Cholesterol, Hypertension Other Cardiovascular History: mitral,leaking valve Gastrointestinal History: Reports: GERD Other Gastrointestinal History: e.coli, unsure if had h pilori Musculoskeletal History: Reports: Back Pain, Chronic Psychiatric History: Reports: Anxiety Hematologic History: Reports: Anticoagulation Therapy Other Hematologic History: blood clots to legs Dermatologic History: Reports: Melanoma - Past Surgical History Cardiovascular Surgical History: Reports: Valve Replacement, Vascular Surgery GI Surgical History: Reports: Appendectomy, Cholecystectomy Female Surgical History: Reports: Hysterectomy, Oophorectomy, Tubal Ligation Social & Family History - Family History Family Medical History: Noncontributory - Tobacco Use Smoking Status *Q: Current Every Day Smoker Years of Tobacco use: 30 Packs/Tins Daily: 0.5 - Caffeine Use Caffeine Use: Reports: None - Recreational Drug Use Recreational Drug Use: No - Living Situation & Occupation Living situation: Reports: Occupation: Unemployed ED ROS GENERAL - Review of Systems Review Of Systems: See Below Constitutional: Reports: Malaise, Weakness, Fatigue, Decreased Appetite. Denies : Fever, Chills HEENT: Reports: Ear Pain (Pain is referred to the left ear and temporal area first scalp.), Other (Left hemifacial pain at site of recent surgical excision of cancerous lesion along the left nasolabial fold.) Respiratory: Reports: No Symptoms Cardiovascular: Reports: Blood Pressure Problem (On lisinopril for blood pressure.), Other (From not being able to sleep. She has a prosthetic mechanical mitral valve 9 years. She is on Coumadin because of this.) Endocrine: Reports: Fatigue GI/Abdominal: Reports: Nausea : Reports: No Symptoms Musculoskeletal: Reports: No Symptoms Skin: Reports: Other (Skin cancer left satnam-face requiring wide excision and removal yesterday by plastic surgeon) Neurological: Reports: No Symptoms Psychiatric: Reports: No Symptoms Hematologic/Lymphatic: Reports: No Symptoms Immunologic: Reports: No Symptoms ED EXAM, SKIN/RASH Exam: See Below Exam Limited By: No Limitations General Appearance: Alert, Moderate Distress (She speaks broken German but seems to have a good understanding of language. Her [employer] as the spanish interpreter.) Eye Exam: Bilateral Eye: Normal Inspection Nose: Normal Inspection, Normal Mucosa Throat/Mouth: Normal Inspection, Normal Lips, Normal Oropharynx, Other (Left upper lip is mildly swollen.) Head: Atraumatic, Normocephalic, Facial Swelling (Left satnam-facial swelling at surgical site.), Facial Tenderness (Severe left satnam-facial tenderness of both the lip and along the nasolabial fold.), Other Neck: Normal Inspection (Anus over the maxillary sinus area.), Supple, Non- Tender, Full Range of Motion. No: Lymphadenopathy (L), Lymphadenopathy (R) Respiratory/Chest: No Respiratory Distress, Lungs Clear, Normal Breath Sounds, No Accessory Muscle Use Cardiovascular: Normal Peripheral Pulses, Regular Rate, Rhythm, No Edema, No Gallop, No Rub, Other (She does have a prosthetic heart valve and I can hear the clicking of the mechanical valve best heard to the left of the sternum. No murmur identified.) Peripheral Pulses: 3+: Carotid (L), Carotid (R), Posterior Tibial (L), Posterior Tibial (R), Dorsalis Pedis (L), Dorsalis Pedis (R) GI/Abdominal: Normal Bowel Sounds, Soft, Non-Tender, No Organomegaly Extremities: Normal Inspection, Normal Range of Motion, Non-Tender, No Pedal Edema, Normal Capillary Refill Neurological: Alert, Oriented, CN II-XII Intact, Normal Cognition, No Motor/ Sensory Deficits Psychiatric: Other Skin: Warm (Flat affect. Patient is a good deal of pain), Dry, Intact, Normal Color, No Rash Location, Skin: Face (Sutures placed in the left nasolabial fold the site of cancer of the skin excision. The tissue is very swollen and I suspect hematoma has formed from being on Coumadin.) Associated features: Swelling (Marked swelling and thickening of the skin left satnam-face) Course - Vital Signs Last Recorded V/S: Last Vital Signs Temp 36.3 C 07/31/19 02:36 Pulse 64 07/31/19 02:36 Resp 18 07/31/19 02:36 BP 166/94 H 07/31/19 02:36 Pulse Ox 100 07/31/19 02:36 - Orders/Labs/Meds Meds: Medications Discontinued Medications Generic Name Dose Route Start Last Admin Trade Name Michaelq PRN Reason Stop Dose Admin Hydromorphone HCl 0.5 mg 07/31/19 03:06 07/31/19 03:34 Dilaudid IVPUSH 07/31/19 03:07 0.5 mg ONETIME ONE Administration Hydromorphone HCl 0.5 mg 07/31/19 04:52 07/31/19 05:05 Dilaudid IVPUSH 07/31/19 04:53 0.5 mg ONETIME ONE Administration Dextrose/Sodium Chloride 1,000 mls @ 500 mls/hr 07/31/19 03:15 07/31/19 03:33 Dextrose 5%-Normal Saline IV 500 mls/hr ASDIRECTED BILL Administration Ceftriaxone Sodium 1 gm/ 100 mls @ 200 mls/hr 07/31/19 03:07 07/31/19 03:35 Sodium Chloride IV 07/31/19 03:36 200 mls/hr ONETIME ONE Administration Ondansetron HCl 4 mg 07/31/19 03:06 07/31/19 03:34 Zofran IVPUSH 07/31/19 03:07 4 mg ONETIME ONE Administration - Radiology Interpretation Free Text/Narrative:: 48-year-old female presents to the ED due to left hemifacial pain secondary to postoperative pain where she had a cancerous lesion excised from her left satnam- face nasolabial fold yesterday under general anesthetic. Patient is very concerned about prophylactic antibiotics as she has a prosthetic mitral valve. She is correct that prophylactic antibodies are usually indicated. Unclear however she got an antibiotic intravenously preoperatively. She doesn't believe that she did. She is off her Coumadin at this time and due to start again tomorrow. I will give her Rocephin 1 g IV. Olympus run tox likely 100 mg twice daily for 10 days to prevent any secondary wound infection. She'll be given Dilaudid 0.5 mg IV for pain relief with Zofran 4 mg for nausea relief at this time. He did discharge her on Percocet tablets as needed for the next 2-3 days. - Re-Assessments/Exams Free Text/Narrative Re-Assessment/Exam: 07/31/19 04:53 and did improve quite a bit with the first dose of Dilaudid 0.5 mg but she feels it's coming back again today throbbing component to the pain. For repeat Dilaudid 0.5 mg IV. Rocephin has infused. We discharged to home in the care of her after the Dilaudid has been given. Prescription will be written for doxycycline 100 mg twice daily for 8 days and Percocet tabs 5/3/25 milligrams one or 2 every 4-6 hours for pain relief for the next 2-3 days. --16 tablets were provided for pain relief. Advised her to have her PT/INR checked on Sunday next week as acetaminophen and doxepin may both slightly elevated her INR. Her to start back on her Coumadin tonight. Departure - Departure Time of Disposition: 05:06 Disposition: Home, Self-Care 01 Condition: Fair Clinical Impression: Encounter for pain management, Post-operative pain, History of prosthetic heart valve - Discharge Information *PRESCRIPTION DRUG MONITORING PROGRAM REVIEWED*: Not Applicable *COPY OF PRESCRIPTION DRUG MONITORING REPORT IN PATIENT ERUM: Not Applicable Prescriptions: Doxycycline [Vibramycin] 100 mg PO BID #16 cap oxyCODONE HCl/Acetaminophen [Percocet 5-325 mg Tablet] 1 - 2 each PO Q4H PRN # 16 tablet PRN Reason: pain relief. Instructions: Opioid Pain Medicine Information, [id number] Referrals: Olivia Palacios MD [Primary Care Provider] - Forms: ED Department Discharge Additional Instructions: Evaluation in the emergency room tonight in regards to severe throbbing pain at operative site left satnam-face. Surgery was performed to remove a cancerous skin lesion left satnam-face nasolabial fold in [place] yesterday. Your discharge without any pain medication. It is likely that the wound is much more swollen than normal from being on Coumadin for mitral prosthetic heart valve. As you requested you wish to receive antibiotics to prevent any possibility of infection your prosthetic valve. Risk of infection from a skin lesion that is not infected is considered to be very low. You were given Rocephin 1 g of antibody intravenously while in the department and should take doxycycline 100 mg twice daily for the next 8 days to prevent any infection of your heart valve from occurring until the skin lesion can heal. Also prescription written for Percocet tabs 5/325 mg tablets one or 2 every 4-6 hours as needed with for pain relief with food. Suggest having your PT/INR checked on Sunday next week as both acetaminophen in the pain pill and antibiotic can sometimes increase your INR. As we discussed your to resume your Coumadin as directed by surgeon rachel ortega.
[2019-07-31] MEDS ORDERED: Dextrose 5%-0.9% NaCl 1,000 ML IV SCH (03:15)
== END 2019-07-31 05:23 | disposition home or self-care (01) ==
LOC: JD.ED 02:28
DX: G89.18 Other acute postprocedural pain (principal); I10 Essential (primary) hypertension; E78.00 Pure hypercholesterolemia, unspecified; K21.9 Gastro-esophageal reflux disease without esophagitis; F41.9 Anxiety disorder, unspecified; F17.210 Nicotine dependence, cigarettes, uncomplicated; Z95.2 Presence of prosthetic heart valve; Z79.01 Long term (current) use of anticoagulants; Z85.820 Personal history of malignant melanoma of skin; Z91.041 Radiographic dye allergy status; Z91.013 Allergy to seafood; Z79.899 Other long term (current) drug therapy; Z86.718 Personal history of other venous thrombosis and embolism
CPT/HCPCS: 96361; 96365; 96375; 96376; 99283; J0696; J1170; J2405; J7030; J7042; 99284

== ENCOUNTER 2019-09-14 20:08 | Emergency (ER) | payer BC ==
--- NOTE | 2019-09-14 20:58 | EDM.PDOC ---
ED HPI GENERAL MEDICAL PROBLEM - General Chief Complaint: Cardiovascular Problem Stated Complaint: DIZZY Time Seen by Provider: 09/14/19 20:43 Source of Information: Reports: Patient, RN Notes Reviewed History Limitations: Reports: No Limitations, Language Barrier ( interprets) - History of Present Illness INITIAL COMMENTS - FREE TEXT/NARRATIVE: Patient is a 49-year-old female who presents to the ED for the evaluation of feeling dizzy like she is going to pass out. Patient is limitedly Telugu- speaking, but her is here to translate. The patient's primary care provider is Olivia Palacios. The patient notes that she was told by Miss Palacios that she was anemic, and some symptoms she is having is due to the anemia. Patient has been taking iron and vitamin C pills for this. Patient notes a history of a mitral valve replacement about 9 years ago. She has no history of any sort of IL, COPD, or asthma. Patient is complaining of being dizzy, having slight nausea, left shoulder pain/left arm heaviness, chest heaviness, shortness of breath, fatigued all the time, and shortness of breath with exertion, she states she can only do about 10 minutes of activity before she needs to sit back down again. The notes that the patient did have cancer spot removed in her face around 3 months ago. Patient is on Coumadin due to the mitral valve replacement. Left Arm Pain Score (Numeric/FACES): 10 - Related Data Allergies Allergy/AdvReac Type Severity Reaction Status Date / Time Iodinated Contrast Media Allergy Rash Verified 07/31/19 02:34 [Iodinated Contrast- Oral and IV Dye] seafood Allergy Rash Uncoded 07/31/19 02:34 Home Meds: Home Meds Lisinopril 2.5 mg PO DAILY 10/14/18 [History] Omeprazole 40 mg PO DAILY 10/14/18 [History] Warfarin [Coumadin] 7.5 mg PO SUTUTHFRSA 11/22/18 [History] Simvastatin [Zocor] 10 mg PO BEDTIME 02/10/19 [History] Warfarin [Coumadin] 5 mg PO MOWE 07/31/19 [History] Ascorbic Acid [Vitamin C] 0 mg PO DAILY 09/14/19 [History] Ferrous Sulfate [Iron] 325 mg PO DAILY 09/14/19 [History] Past Medical History Cardiovascular History: Reports: Blood Clots/VTE/DVT, High Cholesterol, Hypertension Other Cardiovascular History: mitral,leaking valve Gastrointestinal History: Reports: GERD Other Gastrointestinal History: e.coli, unsure if had h pilori Musculoskeletal History: Reports: Back Pain, Chronic Psychiatric History: Reports: Anxiety Hematologic History: Reports: Anticoagulation Therapy Other Hematologic History: blood clots to legs Dermatologic History: Reports: Melanoma - Past Surgical History Cardiovascular Surgical History: Reports: Valve Replacement, Vascular Surgery GI Surgical History: Reports: Appendectomy, Cholecystectomy Female Surgical History: Reports: Hysterectomy, Oophorectomy, Tubal Ligation Social & Family History - Family History Family Medical History: Noncontributory - Tobacco Use Smoking Status *Q: Current Every Day Smoker Years of Tobacco use: 33 Packs/Tins Daily: 0.5 - Caffeine Use Caffeine Use: Reports: Coffee - Recreational Drug Use Recreational Drug Use: No - Living Situation & Occupation Living situation: Reports: Occupation: Unemployed ED ROS GENERAL - Review of Systems Review Of Systems: See Below Constitutional: Reports: Chills, Malaise (generalized), Weakness (generalized). Denies: Fever HEENT: Reports: No Symptoms Respiratory: Reports: Shortness of Breath. Denies: Cough Cardiovascular: Reports: Chest Pain (chest heaviness/tightness), Dyspnea on Exertion, Lightheadedness. Denies: Palpitations, Syncope GI/Abdominal: Reports: Nausea. Denies: Abdominal Pain, Constipation, Diarrhea, Vomiting : Reports: No Symptoms Musculoskeletal: Reports: Arm Pain (Left arm pain/heaviness) Skin: Reports: Pallor (generalized) Neurological: Reports: Dizziness. Denies: Confusion, Headache, Seizure, Syncope Psychiatric: Reports: No Symptoms Hematologic/Lymphatic: Reports: No Symptoms Immunologic: Reports: No Symptoms ED EXAM, GENERAL - Physical Exam Exam: See Below Exam Limited By: Language Barrier ( translates) General Appearance: Alert, WD/WN, No Apparent Distress, Lethargic Eye Exam: Bilateral Eye: EOMI, Normal Inspection, Periorbital Changes Ears: Normal External Exam Throat/Mouth: Normal Inspection, Normal Lips, Normal Teeth, Normal Gums, Normal Oropharynx, Normal Voice, No Airway Compromise Head: Atraumatic, Normocephalic Neck: Normal Inspection, Supple, Non-Tender, Full Range of Motion Respiratory/Chest: No Respiratory Distress, Lungs Clear, Normal Breath Sounds, No Accessory Muscle Use, Chest Non-Tender Cardiovascular: Normal Peripheral Pulses, Regular Rate, Rhythm, No Edema, No Murmur Peripheral Pulses: 3+: Radial (L), Radial (R), Dorsalis Pedis (L), Dorsalis Pedis (R) GI/Abdominal: Normal Bowel Sounds, Soft, Non-Tender, No Distention, No Mass Extremities: Normal Inspection, Normal Capillary Refill Neurological: Alert, Oriented, Normal Cognition, No Motor/Sensory Deficits Psychiatric: Normal Affect, Normal Mood Skin Exam: Warm, Dry, Intact, Normal Color, No Rash EKG INTERPRETATION EKG Date: 09/14/19 Time: 20:57 Rhythm: Other (ectopic atrial rhythm) Rate (Beats/Min): 61 [place]: LAD-Left [place] Deviation (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 Reviewed with Dr. Zaidi Course - Vital Signs Last Recorded V/S: Last Vital Signs Temp 97.4 F 09/14/19 20:36 Pulse 66 09/14/19 20:36 Resp 12 09/14/19 20:36 BP 128/80 09/14/19 20:36 Pulse Ox 96 09/14/19 20:36 - Orders/Labs/Meds Orders: Active Orders 24 hr Category Date Time Status EKG Documentation Completion [RC] STAT Care 09/14/19 20:42 Ordered Orthostatic Vital Signs [RC] ASDIRECTED Care 09/14/19 20:44 Ordered Chest 1V Frontal [CR] Stat Exams 09/14/19 20:42 Ordered Labs: Laboratory Tests 09/14/19 09/14/19 09/14/19 Range/Units 20:53 20:53 20:53 WBC 8.99 (3.98-10.04) K/mm3 RBC 5.02 (3.98-5.22) M/mm3 Hgb 13.2 (11.2-15.7) gm/dl Hct 41.2 (34.1-44.9) % MCV 82.1 (79.4-94.8) fl MCH 26.3 (25.6-32.2) pg MCHC 32.0 L (32.2-35.5) g/dl RDW Std Deviation 55.6 H (36.4-46.3) fL Plt Count 195 (182-369) K/mm3 MPV 12.6 H (9.4-12.3) fl Neutrophils % (Manual) 82 H (40-60) % Band Neutrophils % 0 (0-10) % Lymphocytes % (Manual) 13 L (20-40) % Atypical Lymphs % 0 % Monocytes % (Manual) 5 (2-10) % Eosinophils % (Manual) 0 L (0.7-5.8) % Basophils % (Manual) 0 L (0.1-1.2) Platelet Estimate Adequate Anisocytosis 1+ slight Ovalocytes 1+ slight Joao Cells Few RBC Morph Comment Not Reportable PT 24.1 H (9.7-12.0) SECONDS INR 2.32 APTT 34 H D (22-31) SECONDS Sodium 144 (136-145) mEq/L Potassium 3.3 L (3.5-5.1) mEq/L Chloride 108 H (98-107) mEq/L Carbon Dioxide 26 (21-32) mEq/L Anion Gap 13.3 (5-15) BUN 8 (7-18) mg/dL Creatinine 0.7 (0.55-1.02) mg/dL Est Cr Clr Drug Dosing 82.10 mL/min Estimated GFR (MDRD) > 60 (>60) mL/min BUN/Creatinine Ratio 11.4 L (14-18) Glucose 157 H (74-106) mg/dL Calcium 8.3 L (8.5-10.1) mg/dL Magnesium 1.9 (1.8-2.4) mg/dl Total Bilirubin 0.5 (0.2-1.0) mg/dL AST 15 (15-37) U/L ALT 18 (14-59) U/L Alkaline Phosphatase 61 (46-116) U/L Troponin I < 0.017 (0.00-0.056) ng/mL Total Protein 6.7 (6.4-8.2) g/dl Albumin 3.5 (3.4-5.0) g/dl Globulin 3.2 gm/dL Albumin/Globulin Ratio 1.1 (1-2) Meds: Medications Discontinued Medications Generic Name Dose Route Start Last Admin Trade Name Freq PRN Reason Stop Dose Admin Potassium Chloride 20 meq 09/14/19 21:44 09/14/19 21:55 Klor-Con M20 PO 09/14/19 21:45 20 meq ONETIME ONE Administration - Re-Assessments/Exams Free Text/Narrative Re-Assessment/Exam: 09/14/19 20:58 Patient presents to the ED for evaluation of multiple complaints. I did order EKG, chest x-ray, CBC, CMP, troponin, magnesium, coag studies to further delineate some of her symptoms. I suspect that her symptoms may likely be due to anemia, and the Iron supplementation she is taking is not effective enough. 09/14/19 21:46 Patient labs have returned, and demonstrate an essentially normal CBC, with normal hemoglobin, metabolic panel, essentially within normal limits. The patient's potassium is slightly low at 3.3, I did order 20 mEq by mouth for this. Patient's INR seems to be appropriate for Coumadin therapy, this was discussed with Dr. Zaidi and he agrees. Patient's troponin is negative. At this point I am not quite sure as to what might be causing her dizziness, I will have her follow-up with her primary care provider, and have her try to increase food and fluid intake the meantime. The related at the beginning of the visit, the patient did have a mole taken off of her face due to skin cancer, and the patient has not felt like herself since then, due to the scar. I believe that some of the patient's symptoms are psychosomatic in nature. 09/14/19 22:15 Patient was reassessed at bedside, and states that she is having a headache, but this is been present all day, and is not requesting any sort of medications at this time. She states that she would like to go home. Departure - Departure Time of Disposition: 21:48 Disposition: Home, Self-Care 01 Condition: Fair Clinical Impression: Dizziness, Left arm pain Instructions: Dizziness, [id number] Referrals: Olivia Palacios MD [Primary Care Provider] - Forms: ED Department Discharge Additional Instructions: You were evaluated in the ED today regarding your generalized dizziness, and fatigue. Laboratory evaluation demonstrated a hemoglobin within normal limits, this would suggest that the iron pills and vitamin C supplementation you have been taking, is effective and appears to be correcting your anemia that you stated was present from the beginning. Your potassium was very mildly low at 3.3, you were given a one-time supplementation dose of this, 20 mEq in the ED today for further management. Your blood pressure was within normal limits, and does not demonstrate any sort hypotensive instances, you were not given IV fluids at today's visit. Your chest x-ray was within normal limits, also your EKG showed no acute ischemic changes to suggest any sort of cardiac etiology of your pain. Recommend that you follow up with your primary care provider, for further management of your symptoms, there were no acute abnormalities other than the ones mentioned above, that need to be treated in the ER, or by hospitalization tonight. Please return to the ED if her symptoms should change or worsen. - My Orders Last 24 Hours: My Active Orders 09/14/19 20:42 EKG Documentation Completion [RC] STAT Chest 1V Frontal [CR] Stat 09/14/19 20:44 Orthostatic Vital Signs [RC] ASDIRECTED - Assessment/Plan Last 24 Hours: My Active Orders 09/14/19 20:42 EKG Documentation Completion [RC] STAT Chest 1V Frontal [CR] Stat 09/14/19 20:44 Orthostatic Vital Signs [RC] ASDIRECTED
[2019-09-14] MEDS ORDERED: Potassium Chloride 20 MEQ Tab.ER PO ONE (21:44)
--- NOTE | 2019-09-15 07:05 | CR ---
Chest: Portable view of the chest was obtained. Comparison: Previous chest CT study of 12/08/18 and chest x-ray of 12/08/18. Sternotomy is noted for prosthetic heart valve. Lungs are clear. Bony structures are grossly intact. Impression: 1. Nothing acute is appreciated on portable chest x-ray. Diagnostic code #1
== END 2019-09-14 22:24 | disposition home or self-care (01) ==
LOC: JD.ED 20:08
DX: R42 Dizziness and giddiness (principal); M79.602 Pain in left arm; K21.9 Gastro-esophageal reflux disease without esophagitis; I10 Essential (primary) hypertension; E78.00 Pure hypercholesterolemia, unspecified; F17.210 Nicotine dependence, cigarettes, uncomplicated; Z79.01 Long term (current) use of anticoagulants; Z79.899 Other long term (current) drug therapy; Z86.718 Personal history of other venous thrombosis and embolism; Z91.041 Radiographic dye allergy status; Z91.013 Allergy to seafood
CPT/HCPCS: 36415; 71045; 80053; 83735; 84484; 85007; 85027; 85610; 85730; 93005; 99284; A9270; 93010; 99283

== ENCOUNTER 2019-10-31 17:24 | Emergency (ER) | payer BC ==
[2019-10-31] MEDS ORDERED: FLU Vacc QS2019-20(6MOS+)/PF 60 MCG/0.5 ML SYRINGE IM ONE (18:00)
--- NOTE | 2019-10-31 19:27 | EDM.PDOC ---
ED HPI GENERAL MEDICAL PROBLEM - General Chief Complaint: Upper Extremity Injury/Pain Stated Complaint: PAIN IN ARM FOR 1 WEEK Time Seen by Provider: 10/31/19 19:38 Source of Information: Reports: Patient, Family History Limitations: Reports: No Limitations - History of Present Illness INITIAL COMMENTS - FREE TEXT/NARRATIVE: 49-year-old female presents to the ED with diffuse left-sided precordial chest pain for the last 4-5 days. Associate with a mildly productive cough. Deep breathing makes the pain worse. I.e. there is a pleuritic component to the pain. 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 Pain radiates into the left shoulder and down her left arm. Is associated with some numbness and tingling or paresthesias as well. Appetite is poor. Denies any nausea or vomiting. No definite fever. 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 Hasn't had her PT/INR checked for a lengthy period of time. Onset: Gradual Onset Date: 10/27/19 Duration: Day(s):, Getting Worse, Waxing/Waning Location: Reports: Chest (Precordial chest pain radiating to the left arm and shoulder.), Upper Extremity, Left Quality: Reports: Ache, Sharp, Stabbing, Other Severity: Moderate (Pain in the upper extremity is that of an ache as well as some numbness and tingling.) Improves with: Reports: Rest Worsens with: Reports: Other (Worse with coughing and deep breathing.) Context: Denies: Activity, Exercise, Lifting, Sick Contact, Trauma, Other Associated Symptoms: Reports: Chest Pain (Mild sputum production not sure the colors she hasn't spit anything out. Use left precordial ), Cough, cough w sputum, Headaches, Loss of Appetite, Malaise, Shortness of Breath (Sense of shortness of breath as if she takes a deep breath it makes the pain worse in the left precordial chest.). 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: Other (see below) (None.) Left Arm Pain Score (Numeric/FACES): 8 - Related Data Allergies Allergy/AdvReac Type Severity Reaction Status Date / Time cyclobenzaprine Allergy Rash Verified 10/31/19 17:44 [From Flexeril] Iodinated Contrast Media Allergy Rash Verified 10/31/19 17:43 [Iodinated Contrast- Oral and IV Dye] tizanidine [From Zanaflex] Allergy Rash Verified 10/31/19 17:44 seafood Allergy Rash Uncoded 07/31/19 02:34 Home Meds: Home Meds Lisinopril 2.5 mg PO DAILY 10/14/18 [History] Omeprazole 40 mg PO DAILY 10/14/18 [History] Warfarin [Coumadin] 7.5 mg PO SUTUTHSA 11/22/18 [History] Simvastatin [Zocor] 10 mg PO BEDTIME 02/10/19 [History] Warfarin [Coumadin] 5 mg PO MOWEFR 07/31/19 [History] Ferrous Sulfate [Iron] 325 mg PO DAILY 09/14/19 [History] Cephalexin [Keflex] 500 mg PO TID #24 capsule 10/31/19 [Rx] Oxybutynin 10 mg PO DAILY 10/31/19 [History] dexAMETHasone [Dexamethasone] 4 mg PO Q8H #15 tablet 10/31/19 [Rx] oxyCODONE HCl/Acetaminophen [Percocet 5-325 mg Tablet] 1 - 2 each PO Q6H PRN # 18 tablet 10/31/19 [Rx] Past Medical History Cardiovascular History: Reports: Blood Clots/VTE/DVT, High Cholesterol, Hypertension Other Cardiovascular History: mitral,leaking valve Gastrointestinal History: Reports: GERD Other Gastrointestinal History: e.coli, unsure if had h pilori Genitourinary History: Reports: Urinary Incontinence 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: Musculoskeletal History: Reports: Back Pain, Chronic Psychiatric History: Reports: Anxiety Hematologic History: Reports: Anticoagulation Therapy Other Hematologic History: blood clots to legs Dermatologic History: Reports: Melanoma - Past Surgical History Cardiovascular Surgical History: Reports: Valve Replacement, Vascular Surgery GI Surgical History: Reports: Appendectomy, Cholecystectomy Female Surgical History: Reports: Hysterectomy, Oophorectomy, Tubal Ligation Social & Family History - Family History Family Medical History: Noncontributory - Tobacco Use Smoking Status *Q: Current Every Day Smoker Years of Tobacco use: 40 Packs/Tins Daily: 0.5 Second Hand Smoke Exposure: No - Caffeine Use Caffeine Use: Reports: Coffee - Recreational Drug Use Recreational Drug Use: No - Living Situation & Occupation Living situation: Reports: Occupation: Unemployed Review of Systems - Review of Systems Review Of Systems: See Below Constitutional: Reports: No Symptoms Eyes: Reports: No Symptoms Ears: Reports: No Symptoms Nose: Reports: No Symptoms Mouth/Throat: Reports: No Symptoms Respiratory: Reports: Shortness of Breath, Pleuritic Chest Pain, Cough (Left precordial chest.), Sputum. Denies: Wheezing, Hemoptysis (Mild sputum production without any hemoptysis.) Cardiovascular: Reports: Chest Pain (Left precordial chest pain which is mostly pleuritic). Denies: Edema, Irregular Heart Rate ( in origin.), Lightheadedness , Palpitations GI/Abdominal: Reports: No Symptoms Genitourinary: Reports: No Symptoms Musculoskeletal: Reports: Neck Pain (Left arm pain left shoulder pain), Shoulder Pain, Arm Pain, Back Pain ( left neck pain left upper back pain) Skin: Reports: No Symptoms ( in the chest seems to radiate through to the upper back. ) Neurological: Reports: Paresthesia (Paresthesias in the left arm rating down towards the wrist but mostly in the biceps and medial aspect of the arm.) Psychiatric: Reports: Anxiety ED EXAM, GENERAL - Physical Exam Exam: See Below Exam Limited By: No Limitations General Appearance: Alert, WD/WN, Moderate Distress (Quite anxious.) Eye Exam: Bilateral Eye: Normal Inspection, PERRL Head: Atraumatic, Normocephalic Neck: Normal Inspection, Supple, Tender Lateral (Tender along the distribution of the left upper shoulder musculature rating towards the shoulder. No evidence of nerve root entrapment in the neck.) Respiratory/Chest: No Respiratory Distress, Lungs Clear, Normal Breath Sounds, No Accessory Muscle Use, Other (S wall is very tender bilaterally in the midclavicular line ribs 2-4 on the right side ribs 2-6 on the left side.) Cardiovascular: Normal Peripheral Pulses, Regular Rate, Rhythm, No Edema, No Gallop, No Murmur, No Rub Peripheral Pulses: 0: Radial (R) (She has good), 3+: Radial (L) GI/Abdominal: Normal Bowel Sounds, Soft, Non-Tender, No Organomegaly, No Mass, Pelvis Stable, Other (Previous appendectomy and total abdominal hysterectomy.) Back Exam: Normal Inspection, Full Range of Motion, Other (There is localized muscle spasm over T5 rib head on the right side.). No: CVA Tenderness (L), CVA Tenderness (R) Extremities: Normal Inspection, Normal Range of Motion, Non-Tender, No Pedal Edema, Normal Capillary Refill, Other (There is no outward swelling of the left upper extremity or any concern clinically for a DVT in the axillary vein.) Neurological: Alert, Oriented, CN II-XII Intact, Normal Cognition, Normal Gait Psychiatric: Anxious Skin Exam: Warm, Dry, Intact, Normal Color, No Rash EKG INTERPRETATION EKG Date: 10/31/19 Time: 19:38 Rhythm: Other (Ectopic atrial rhythm as all the P waves are inverted.) [place]: LAD-Left [place] Deviation (-62.) P-Wave: Present (Present but inverted.) QRS: Other (There is a RSR prime wave in V1 and V2 with initial very poor R- wave progression from V1 to V3. One has to give some consideration for possible old anteroseptal myocardial infarction. There is also Q waves in leads 23 and aVF suggestive of an old inferior wall myocardial infarction. Consider left anterior fascicular block pattern.) ST-T: Other (T-wave flattening in V2 and V3.) QT: Prolonged (Borderline.) EKG Interpretation Comments: Abnormal ECG on comparison ECG done in November of this year this ECG is unchanged. Course - Vital Signs Last Recorded V/S: Last Vital Signs Temp 36.2 C 10/31/19 17:40 Pulse 65 10/31/19 17:40 Resp 18 10/31/19 17:40 BP 144/86 H 10/31/19 17:40 Pulse Ox 98 10/31/19 17:40 - Orders/Labs/Meds Orders: Active Orders 24 hr Category Date Time Status EKG Documentation Completion [RC] STAT Care 10/31/19 19:37 Active Influenza Vaccine Charge [RC] .DISCHARGE Care 10/31/19 17:49 Active Chest 1V Frontal [CR] Stat Exams 10/31/19 19:36 Taken Labs: Laboratory Tests 10/31/19 10/31/19 10/31/19 Range/Units 18:46 18:46 18:46 WBC 5.04 (3.98-10.04) K/mm3 RBC 4.67 (3.98-5.22) M/mm3 Hgb 12.8 (11.2-15.7) gm/dl Hct 39.5 (34.1-44.9) % MCV 84.6 (79.4-94.8) fl MCH 27.4 (25.6-32.2) pg MCHC 32.4 (32.2-35.5) g/dl RDW Std Deviation 52.9 H (36.4-46.3) fL Plt Count 207 (182-369) K/mm3 MPV 12.0 (9.4-12.3) fl Neut % (Auto) 54.4 (34.0-71.1) % Lymph % (Auto) 34.5 (19.3-51.7) % [place] % (Auto) 8.3 (4.7-12.5) % Eos % (Auto) 1.8 (0.7-5.8) Baso % (Auto) 0.8 (0.1-1.2) % Neut # (Auto) 2.74 (1.56-6.13) K/mm3 Lymph # (Auto) 1.74 (1.18-3.74) K/mm3 [place] # (Auto) 0.42 H (0.24-0.36) K/mm3 Eos # (Auto) 0.09 (0.04-0.36) K/mm3 Baso # (Auto) 0.04 (0.01-0.08) K/mm3 PT 38.7 H D (9.7-12.0) SECONDS INR 3.83 D-Dimer, Quantitative < 0.19 L (0.19-0.50) mg/L Sodium 139 (136-145) mEq/L Potassium 3.8 (3.5-5.1) mEq/L Chloride 104 (98-107) mEq/L Carbon Dioxide 28 (21-32) mEq/L Anion Gap 10.8 (5-15) BUN 7 (7-18) mg/dL Creatinine 0.6 (0.55-1.02) mg/dL Est Cr Clr Drug Dosing 95.79 mL/min Estimated GFR (MDRD) > 60 (>60) mL/min BUN/Creatinine Ratio 11.7 L (14-18) Glucose 97 (74-106) mg/dL Calcium 9.0 (8.5-10.1) mg/dL Troponin I (0.00-0.056) ng/mL 10/31/19 Range/Units 18:46 WBC (3.98-10.04) K/mm3 RBC (3.98-5.22) M/mm3 Hgb (11.2-15.7) gm/dl Hct (34.1-44.9) % MCV (79.4-94.8) fl MCH (25.6-32.2) pg MCHC (32.2-35.5) g/dl RDW Std Deviation (36.4-46.3) fL Plt Count (182-369) K/mm3 MPV (9.4-12.3) fl Neut % (Auto) (34.0-71.1) % Lymph % (Auto) (19.3-51.7) % [place] % (Auto) (4.7-12.5) % Eos % (Auto) (0.7-5.8) Baso % (Auto) (0.1-1.2) % Neut # (Auto) (1.56-6.13) K/mm3 Lymph # (Auto) (1.18-3.74) K/mm3 [place] # (Auto) (0.24-0.36) K/mm3 Eos # (Auto) (0.04-0.36) K/mm3 Baso # (Auto) (0.01-0.08) K/mm3 PT (9.7-12.0) SECONDS INR D-Dimer, Quantitative (0.19-0.50) mg/L Sodium (136-145) mEq/L Potassium (3.5-5.1) mEq/L Chloride (98-107) mEq/L Carbon Dioxide (21-32) mEq/L Anion Gap (5-15) BUN (7-18) mg/dL Creatinine (0.55-1.02) mg/dL Est Cr Clr Drug Dosing mL/min Estimated GFR (MDRD) (>60) mL/min BUN/Creatinine Ratio (14-18) Glucose (74-106) mg/dL Calcium (8.5-10.1) mg/dL Troponin I < 0.017 (0.00-0.056) ng/mL Meds: Medications Discontinued Medications Generic Name Dose Route Start Last Admin Trade Name Sage PRN Reason Stop Dose Admin Dexamethasone 10 mg 10/31/19 19:38 10/31/19 19:56 Dexamethasone PO 10/31/19 19:39 10 mg ONETIME ONE Administration Influenza Virus Vaccine 1 each 10/31/19 17:48 Pharmacy To Dose - Influenza Vaccine IM 10/31/19 17:49 ONETIME ONE Influenza Virus Vaccine 60 mcg 10/31/19 18:00 10/31/19 18:31 Fluzone Quad Syringe IM 10/31/19 18:01 60 mcg .ONCE ONE Administration Ondansetron HCl 4 mg 10/31/19 19:37 10/31/19 19:55 Zofran Odt PO 10/31/19 19:38 4 mg ONETIME ONE Administration Oxycodone/Acetaminophen 2 tab 10/31/19 19:37 10/31/19 20:13 Percocet 325-5 Mg PO 10/31/19 19:38 2 tab ONETIME ONE Administration - Radiology Interpretation Free Text/Narrative:: 49-year-old female of Vietnamese to sent presents to the ED with her complaining of cough somewhat productive of sputum for the last 4-5 days. Diffuse left anterior precordial chest pain rating to the left shoulder and arm. There seems to be a strong pleuritic component to the pain. Patient has a history of previous DVT in the lower extremities and is on Coumadin chronically. Her and she may have a blood clot in her left upper extremity as well. There is associated paresthesias in the left upper extremity as well examination showing both medial and lateral epicondylitis of the elbow. No evidence of tendinitis in the true shoulder joint. There is some pain along the superior belly of the trapezius muscle on the left side. Pain radiates through to her left back but no abnormalities were detected on examination. Labs have been previously ordered by previous provider. White count is 5.04 with auto differential of 55%. Hemoglobin is 12.8 with hematocrit of 39.5. Lately count is 207,000. PT is elevated at 38.7 and INR is supratherapeutic at 3.83. D-dimer is less than 0.19. Sodium was 139 with a potassium of 3.8. Chloride is 104 with a bicarbonate of 28. Anion gap is 10.8. BUN is 7 with a creatinine of 0.6. GFR is greater than 60. Glucose was 97 calcium was 9.0. - Re-Assessments/Exams Free Text/Narrative Re-Assessment/Exam: 10/31/19 21:04: Chest x-ray is normal. She does have a mitral valve prosthesis for which she is on Coumadin chronically. Therefore her Coumadin time her INR should be kept around 2.7-3.2. At this time at 3.[address] her Coumadin on hold tonight. Is quite convinced that she has an active infection and requires antibiotics. Placed on cephalexin 500 mg 3 times daily for 8 days as this will not interfere with her Coumadin. She will be given Percocet tabs 5/ 325 mg one or 2 every 4-6 hours needed for pain relief. 18 tablets provided. Dexamethasone 4 mg every 8 hours for 5 days to relieve inflammation of the chest wall has a lot of her pain is pleuritic in nature. There is no evidence of recurrence of a DVT or PE and she has a supratherapeutic INR. Reassured to the best of my ability to alignment very her. seems to have a good grasp of the [place] language. She is to expect improvement over the next 72 hours or so. Will follow-up with personal care physician if not markedly improved. Departure - Departure Time of Disposition: 20:48 Disposition: Home, Self-Care 01 Condition: Fair Clinical Impression: Non-cardiac chest pain, Pleurisy - Discharge Information *PRESCRIPTION DRUG MONITORING PROGRAM REVIEWED*: Not Applicable *COPY OF PRESCRIPTION DRUG MONITORING REPORT IN PATIENT ERUM: Not Applicable Prescriptions: Cephalexin [Keflex] 500 mg PO TID #24 capsule dexAMETHasone [Dexamethasone] 4 mg PO Q8H #15 tablet oxyCODONE HCl/Acetaminophen [Percocet 5-325 mg Tablet] 1 - 2 each PO Q6H PRN # 18 tablet PRN Reason: Chest wall pain Instructions: Chest Wall Pain, [id number], Pleurisy Referrals: Olivia Palacios MD [Primary Care Provider] - Forms: ED Department Discharge Additional Instructions: Evaluation the emergency room today in regards to diffuse left-sided chest pain which is fairly sharp and stabbing which we call pleuritic as it's made worse by deep breathing. Associated mild productive cough. Chest x-ray was negative for any signs of pneumonia. Lab tests proved to be normal with no signs of recurrent blood clots in the lungs. Your Coumadin or INR was elevated at 3.83. With your mitral valve we prefer to keep you PT INR around 2.7-3.0. She just vomited tonight but resume regular dose tomorrow. Treatment is to be pain medication Percocet 5/325 mg tablet 1-2 tablets every 6 hours as needed for pain relief with food in her stomach. Antibiotic cephalexin 500 mg 3 times daily for the next 8 days to clear up infection. Karen's own 4 mg by mouth every 8 hours for the next 5 days to relieve inflammation. Many of these medications shouldn't affect your Coumadin time. Lobe with personal care physician if not markedly improved in 3-4 days time Sepsis Event Note - Evaluation Sepsis Screening Result: No Definite Risk - Focused Exam Vital Signs: Vital Signs Temp Pulse Resp BP Pulse Ox 10/31/19 17:40 36.2 C 65 18 144/86 H 98 Date Exam was Performed: 10/31/19 Time Exam was Performed: 21:04 - My Orders Last 24 Hours: My Active Orders 10/31/19 19:36 Chest 1V Frontal [CR] Stat 10/31/19 19:37 EKG Documentation Completion [RC] STAT - Assessment/Plan Last 24 Hours: My Active Orders 10/31/19 19:36 Chest 1V Frontal [CR] Stat 10/31/19 19:37 EKG Documentation Completion [RC] STAT
[2019-10-31] MEDS ORDERED: Ondansetron 4 MG Tab.DIS PO ONE (19:37)
[2019-10-31] MEDS ORDERED: Dexamethasone 4 MG Tab PO ONE (19:38)
[2019-10-31] MEDS: Acetaminophen/oxyCODONE 325-5 MG Tab PO ONE ×3 (19:56→20:13)
--- NOTE | 2019-11-03 10:47 | CR ---
Chest: Portable view of the chest was obtained. Comparison: Previous chest x-ray of 09/14/19. Heart size and mediastinum are normal. Previous sternotomy is noted with prosthetic heart valve. Lungs are clear with no acute parenchymal change. Bony structures are grossly intact. Impression: 1. Nothing acute is seen on portable chest x-ray. Diagnostic code #2 This report was dictated in [place] Standard Time
== END 2019-10-31 21:16 | disposition home or self-care (01) ==
LOC: JD.ED 17:24
DX: R09.1 Pleurisy (principal); I10 Essential (primary) hypertension; E78.00 Pure hypercholesterolemia, unspecified; K21.9 Gastro-esophageal reflux disease without esophagitis; F17.210 Nicotine dependence, cigarettes, uncomplicated; Z79.01 Long term (current) use of anticoagulants; Z88.8 Allergy status to other drugs, medicaments and biological substances; Z91.013 Allergy to seafood; Z91.041 Radiographic dye allergy status; Z86.718 Personal history of other venous thrombosis and embolism
CPT/HCPCS: 36415; 71045; 80048; 84484; 85025; 85379; 85610; 90471; 90686; 93005; 99285; A9270; J8540; 93010; 99284; G0008

== ENCOUNTER 2019-11-26 14:11 | Emergency (ER) | payer BC ==
--- NOTE | 2019-11-26 14:25 | EDM.PDOC ---
ED HPI GENERAL MEDICAL PROBLEM - General Chief Complaint: Chest Pain Stated Complaint: ABDOMINAL PAIN Time Seen by Provider: 11/26/19 14:24 - History of Present Illness INITIAL COMMENTS - FREE TEXT/NARRATIVE: 49-year-old female presents to the emergency room with abdominal and chest pain. The patient has had this for a couple of weeks this is progressively been getting worse she is unable to eat with this as eating makes it much worse. She has had dark stools and when she vomits it is been very dark as well. Had any breathing difficulties with this no shortness of breath no radiating pain the pain seems to come from her abdomen up in the substernal area but she describes it as being worse with motion. She has not been able to eat much as eating makes it much worse. Bilateral Chest Pain Score (Numeric/FACES): 10 - Related Data Allergies Allergy/AdvReac Type Severity Reaction Status Date / Time cyclobenzaprine Allergy Rash Verified 11/26/19 14:22 [From Flexeril] Iodinated Contrast Media Allergy Rash Verified 11/26/19 14:22 [Iodinated Contrast- Oral and IV Dye] tizanidine [From Zanaflex] Allergy Rash Verified 11/26/19 14:22 seafood Allergy Rash Uncoded 11/26/19 14:22 Home Meds: Home Meds Lisinopril 2.5 mg PO DAILY 10/14/18 [History] Omeprazole 40 mg PO DAILY 10/14/18 [History] Warfarin [Coumadin] 7.5 mg PO SUTUTHSA 11/22/18 [History] Simvastatin [Zocor] 10 mg PO BEDTIME 02/10/19 [History] Warfarin [Coumadin] 5 mg PO MOWEFR 07/31/19 [History] Ferrous Sulfate [Iron] 325 mg PO DAILY 09/14/19 [History] Cephalexin [Keflex] 500 mg PO TID #24 capsule 10/31/19 [Rx] Oxybutynin 10 mg PO DAILY 10/31/19 [History] dexAMETHasone [Dexamethasone] 4 mg PO Q8H #15 tablet 10/31/19 [Rx] oxyCODONE HCl/Acetaminophen [Percocet 5-325 mg Tablet] 1 - 2 each PO Q6H PRN # 18 tablet 10/31/19 [Rx] Acetaminophen/HYDROcodone [[place] 325-5 MG] 1 tab PO Q4H PRN #12 tablet 11/26/19 [Rx] Ondansetron [Zofran ODT] 4 mg PO Q6H PRN #8 tab.dis 11/26/19 [Rx] Pantoprazole Sodium 40 mg PO ASDIRECTED #30 tablet. 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: Musculoskeletal History: Reports: Back Pain, Chronic Psychiatric History: Reports: Anxiety Hematologic History: Reports: Anticoagulation Therapy Other Hematologic History: blood clots to legs Dermatologic History: Reports: Melanoma - Past Surgical History Cardiovascular Surgical History: Reports: Valve Replacement, Vascular Surgery GI Surgical History: Reports: Appendectomy, Cholecystectomy Female Surgical History: Reports: Hysterectomy, Oophorectomy, Tubal Ligation Social & Family History - Family History Family Medical History: Noncontributory - Caffeine Use Caffeine Use: Reports: Coffee - Living Situation & Occupation Living situation: Reports: Occupation: Unemployed ED ROS GENERAL - Review of Systems Review Of Systems: See Below Constitutional: Reports: No Symptoms HEENT: Reports: No Symptoms Respiratory: Reports: No Symptoms Cardiovascular: Reports: Chest Pain. Denies: Dyspnea on Exertion, Edema, Palpitations Endocrine: Reports: No Symptoms GI/Abdominal: Reports: Abdominal Pain, Black Stool, Diarrhea, Nausea, Vomiting, Other (darkColored vomit) ED EXAM, GENERAL - Physical Exam Exam: See Below Exam Limited By: Language Barrier (Patient's is translating.) General Appearance: Alert, No Apparent Distress Head: Atraumatic, Normocephalic Neck: Normal Inspection, Supple, Non-Tender, Full Range of Motion Respiratory/Chest: No Respiratory Distress, Lungs Clear, Normal Breath Sounds Cardiovascular: Regular Rate, Rhythm, No Edema, No Murmur GI/Abdominal: Normal Bowel Sounds, Soft, Other (Has exquisite tenderness in the epigastric area. Some other generalized tenderness mostly in the left upper quadrant. No significant lower abdominal discomfort no rigidity rebound or guarding) Rectal (Female) Exam: Other (Difficulty getting the patient to approve of rectal exam ultimately she did herself and did get us a stool specimen that was Hemoccult negative) Back Exam: Normal Inspection. No: CVA Tenderness (L), Paraspinal Tenderness Extremities: Normal Inspection, Normal Range of Motion, No Pedal Edema Neurological: Alert EKG INTERPRETATION EKG Date: 11/26/19 Rhythm: NSR Hanson: RAD-Right Hanson Deviation P-Wave: Present QRS: Other (LVH minimally prolonged QRS) ST-T: Normal QT: Normal Course - Vital Signs Last Recorded V/S: Last Vital Signs Temp 36.8 C 11/26/19 14:19 Pulse 66 11/26/19 14:19 Resp 22 H 11/26/19 14:19 BP 135/100 H 11/26/19 14:19 Pulse Ox 100 11/26/19 14:19 - Orders/Labs/Meds Orders: Active Orders 24 hr Category Date Time Status TYPE AND SCREEN [BBK] Stat Lab 11/26/19 14:41 Ordered Lactated Ringers [Ringers, Lactated] 1,000 ml Med 11/26/19 14:45 Active IV ASDIRECTED Medication Orders Lactated Ringer's (Ringers, Lactated) 1,000 mls @ 125 mls/hr IV ASDIRECTED BILL Last Admin: 11/26/19 16:31 Dose: 125 mls/hr Labs: Laboratory Tests 11/26/19 11/26/19 11/26/19 Range/Units 15:20 15:20 15:20 WBC 5.87 (3.98-10.04) K/mm3 RBC 5.39 H (3.98-5.22) M/mm3 Hgb 15.1 D (11.2-15.7) gm/dl Hct 46.1 H (34.1-44.9) % MCV 85.5 (79.4-94.8) fl MCH 28.0 (25.6-32.2) pg MCHC 32.8 (32.2-35.5) g/dl RDW Std Deviation 50.2 H (36.4-46.3) fL Plt Count 216 (182-369) K/mm3 MPV 11.4 (9.4-12.3) fl Neut % (Auto) 41.8 (34.0-71.1) % Lymph % (Auto) 45.7 (19.3-51.7) % [place] % (Auto) 9.0 (4.7-12.5) % Eos % (Auto) 2.7 (0.7-5.8) Baso % (Auto) 0.5 (0.1-1.2) % Neut # (Auto) 2.45 (1.56-6.13) K/mm3 Lymph # (Auto) 2.68 (1.18-3.74) K/mm3 [place] # (Auto) 0.53 H (0.24-0.36) K/mm3 Eos # (Auto) 0.16 (0.04-0.36) K/mm3 Baso # (Auto) 0.03 (0.01-0.08) K/mm3 PT 37.0 H (9.7-12.0) SECONDS INR 3.65 APTT 44 H D (22-31) SECONDS Sodium 142 (136-145) mEq/L Potassium 3.9 (3.5-5.1) mEq/L Chloride 104 (98-107) mEq/L Carbon Dioxide 26 (21-32) mEq/L Anion Gap 15.9 H (5-15) BUN 8 (7-18) mg/dL Creatinine 0.8 (0.55-1.02) mg/dL Est Cr Clr Drug Dosing 71.84 mL/min Estimated GFR (MDRD) > 60 (>60) mL/min BUN/Creatinine Ratio 10.0 L (14-18) Glucose 96 (74-106) mg/dL Calcium 9.1 (8.5-10.1) mg/dL Total Bilirubin 0.6 (0.2-1.0) mg/dL AST 23 (15-37) U/L ALT 31 (14-59) U/L Alkaline Phosphatase 87 (46-116) U/L Troponin I < 0.017 (0.00-0.056) ng/mL Total Protein 7.9 (6.4-8.2) g/dl Albumin 4.1 (3.4-5.0) g/dl Globulin 3.8 gm/dL Albumin/Globulin Ratio 1.1 (1-2) Meds: Medications Generic Name Dose Route Start Last Admin Trade Name Freq PRN Reason Stop Dose Admin Lactated Ringer's 1,000 mls @ 125 mls/hr 11/26/19 14:45 11/26/19 16:31 Ringers, Lactated IV 125 mls/hr ASDIRECTED BILL Administration Discontinued Medications Generic Name Dose Route Start Last Admin Trade Name Sage PRN Reason Stop Dose Admin Al Hydroxide/Mg Hydroxide 30 0 ml 11/26/19 14:37 11/26/19 15:16 ml/ Lidocaine HCl 15 ml PO 11/26/19 14:38 45 ml ONETIME ONE Administration Lactated Ringer's 500 mls @ 500 mls/hr 11/26/19 14:37 11/26/19 15:17 Ringers, Lactated IV 11/26/19 15:36 500 mls/hr .BOLUS ONE Administration Morphine Sulfate 4 mg 11/26/19 14:37 11/26/19 15:16 Morphine IVPUSH 11/26/19 14:38 4 mg ONETIME ONE Administration Morphine Sulfate 4 mg 11/26/19 16:54 11/26/19 16:59 Morphine IVPUSH 11/26/19 16:55 4 mg ONETIME ONE Administration Ondansetron HCl 4 mg 11/26/19 14:37 11/26/19 15:18 Zofran IVPUSH 11/26/19 14:38 4 mg ONETIME ONE Administration Pantoprazole Sodium 40 mg 11/26/19 16:26 11/26/19 16:38 Protonix Iv IVPUSH 11/26/19 16:27 40 mg ONETIME ONE Administration Sucralfate 1 gm 11/26/19 16:26 11/26/19 16:38 Carafate PO 11/26/19 16:27 1 gm ONETIME ONE Administration - Re-Assessments/Exams Free Text/Narrative Re-Assessment/Exam: 11/26/19 18:11 Patient did okay here in the emergency room she was treated with morphine x2 she was given a GI cocktail that did not seem to help much this was followed up with some Carafate and she felt better after this. She was given IV Protonix 40 mg. Laboratory evaluations for most part unremarkable we had difficulty getting Hemoccult specimen on her because she was embarrassed. But ultimately the patient did her own digital rectal exam and provided a stool specimen for us that was Hemoccult negative. Patient was observed for some time she received a second dose of morphine and watched for a while after this and she is really doing much better at this time we will discharge her on a 6-day course of Carafate Protonix and in the short-term give her a few Zofran and [place] for the discomfort Departure - Departure Time of Disposition: 18:13 Disposition: Home, Self-Care 01 Clinical Impression: Dyspepsia, GERD (gastroesophageal reflux disease) Prescriptions: Acetaminophen/HYDROcodone [[place] 325-5 MG] 1 tab PO Q4H PRN #12 tablet PRN Reason: Abdominal Pain Ondansetron [Zofran ODT] 4 mg PO Q6H PRN #8 tab.dis PRN Reason: Nausea/Vomiting Pantoprazole Sodium 40 mg PO ASDIRECTED #30 tablet. Sucralfate 1 gm PO ASDIRECTED #24 tablet Referrals: Olivia Palacios MD [Primary Care Provider] - Forms: ED Department Discharge Additional Instructions: Return to the emergency room with any questions problems or worsening symptoms. Follow-up with your regular healthcare provider tomorrow as scheduled and again in 1 week for recheck. Take the medications as directed. The pantoprazole works best taken 1 hour before your morning meal. While you are taking the Carafate it is important to take your occasions an hour before the Carafate or 2 hours after, as the Carafate can block absorption of some medications. Sepsis Event Note - Evaluation Sepsis Screening Result: No Definite Risk - Focused Exam Vital Signs: Vital Signs Temp Pulse Resp BP Pulse Ox 11/26/19 14:19 36.8 C 66 22 H 135/100 H 100 Date Exam was Performed: 11/26/19 Time Exam was Performed: 18:10 - My Orders Last 24 Hours: My Active Orders 11/26/19 14:41 TYPE AND SCREEN [BBK] Stat 11/26/19 14:45 Lactated Ringers [Ringers, Lactated] 1,000 ml IV ASDIRECTED - Assessment/Plan Last 24 Hours: My Active Orders 11/26/19 14:41 TYPE AND SCREEN [BBK] Stat 11/26/19 14:45 Lactated Ringers [Ringers, Lactated] 1,000 ml IV ASDIRECTED
[2019-11-26] MEDS ORDERED: Morphine 4 MG/ML Syringe IVPUSH ONE ×2 (14:37→16:54)
[2019-11-26] MEDS ORDERED: Alum Hydrox/Mag Hydrox/Simeth 30 ML, Lidocaine 2% 15 ML PO ONE ×2 (14:37)
[2019-11-26] MEDS ORDERED: Lactated Ringers 500 ML IV ONE (14:37)
[2019-11-26] MEDS ORDERED: Ondansetron 4 MG/2 ML SDV IVPUSH ONE (14:37)
[2019-11-26] MEDS ORDERED: Lactated Ringers 1,000 ML IV SCH (14:45)
--- NOTE | 2019-11-26 15:28 | CR ---
Chest: Portable view of the chest was obtained. Comparison: Prior chest x-ray of 10/31/19. Heart size and mediastinum are normal. Previous sternotomy is noted. Prosthetic heart valve is seen. Lungs are clear with no acute parenchymal change. Bony structures are grossly intact. Impression: 1. Nothing acute is appreciated on portable chest x-ray. Diagnostic code #2 This report was dictated in [place] Standard Time
[2019-11-26] MEDS ORDERED: Sucralfate Suspension 1 GM/10 ML Cup PO ONE (16:26)
[2019-11-26] MEDS ORDERED: Pantoprazole 40 MG Vial IVPUSH ONE (16:26)
== END 2019-11-26 18:44 | disposition home or self-care (01) ==
LOC: JD.ED 14:11
DX: K21.9 Gastro-esophageal reflux disease without esophagitis (principal); I10 Essential (primary) hypertension; E78.00 Pure hypercholesterolemia, unspecified; Z79.01 Long term (current) use of anticoagulants; Z79.899 Other long term (current) drug therapy; Z86.718 Personal history of other venous thrombosis and embolism; Z88.8 Allergy status to other drugs, medicaments and biological substances; Z91.013 Allergy to seafood; Z91.041 Radiographic dye allergy status
CPT/HCPCS: 36415; 71045; 80053; 84484; 85025; 85610; 85730; 86850; 86900; 86901; 96361; 96374; 96375; 99285; A9270; C9113; J2270; J2405; J7120; 93010; 99284

== ENCOUNTER 2020-03-25 16:46 | Emergency (ER) | payer BC ==
[2020-03-25] MEDS ORDERED: Ondansetron 4 MG/2 ML SDV IVPUSH ONE (17:09)
[2020-03-25] MEDS ORDERED: Sodium Chloride 0.9% 10 ML Syringe FLUSH PRN (17:09)
[2020-03-25] MEDS ORDERED: HYDROmorphone 1 MG/ML Syringe IVPUSH ONE ×2 (17:10→18:10)
[2020-03-25] MEDS ORDERED: Sodium Chloride 0.9% 1,000 ML IV SCH (17:15)
--- NOTE | 2020-03-25 17:15 | EDM.PDOC ---
ED HPI GENERAL MEDICAL PROBLEM - General Chief Complaint: Abdominal Pain Stated Complaint: RIGHT SIDE PAIN Time Seen by Provider: 03/25/20 16:53 Source of Information: Reports: Patient History Limitations: Reports: No Limitations - History of Present Illness INITIAL COMMENTS - FREE TEXT/NARRATIVE: The patient presents with right flank pain that radiates to her right lower abdomen. This started about noon today. She also has nausea. She saw Dr Combs today and had a upper GI done. She has been having some dark stools lately. She has no hematuria. She does have more pain that radiates up her abdomen when she urinates. She has no fever, chills, cough, chest pain or shortness of breath. Onset: Gradual Duration: Hour(s): Location: Reports: Abdomen, Back Quality: Reports: Sharp Severity: Severe Improves with: Reports: None Worsens with: Reports: None Associated Symptoms: Reports: Nausea/Vomiting. Denies: Chest Pain, Cough, Fever /Chills, Headaches, Shortness of Breath Right Lower Abdominal Pain Score (Numeric/FACES): 10 - Related Data Allergies Allergy/AdvReac Type Severity Reaction Status Date / Time ibuprofen Allergy Severe Rash Verified 03/25/20 17:09 cyclobenzaprine Allergy Rash Verified 11/26/19 14:22 [From Flexeril] Iodinated Contrast Media Allergy Rash Verified 11/26/19 14:22 [Iodinated Contrast- Oral and IV Dye] tizanidine [From Zanaflex] Allergy Rash Verified 11/26/19 14:22 seafood Allergy Rash Uncoded 11/26/19 14:22 Home Meds: Home Meds Lisinopril 2.5 mg PO DAILY 10/14/18 [History] Omeprazole 40 mg PO DAILY 10/14/18 [History] Warfarin [Coumadin] 7.5 mg PO SUTUTHSA 11/22/18 [History] Simvastatin [Zocor] 10 mg PO BEDTIME 02/10/19 [History] Warfarin [Coumadin] 5 mg PO MOWEFR 07/31/19 [History] Ferrous Sulfate [Iron] 325 mg PO DAILY 09/14/19 [History] Oxybutynin 10 mg PO DAILY 10/31/19 [History] Sucralfate 1 gm PO ASDIRECTED #24 tablet 11/26/19 [Rx] Hydrocodone/Acetaminophen [Hydrocodone-Acetamin 5-325 mg] 1 - 2 each PO Q6HR PRN #20 tablet 03/25/20 [Rx] Past Medical History Cardiovascular History: Reports: Blood Clots/VTE/DVT, High Cholesterol, Hypertension Other Cardiovascular History: mitral,leaking valve Respiratory History: Reports: Other (See Below) Gastrointestinal History: Reports: GERD Other Gastrointestinal History: e.coli, unsure if had h pilori Genitourinary History: Reports: Urinary Incontinence 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: Musculoskeletal History: Reports: Back Pain, Chronic Psychiatric History: Reports: Anxiety Hematologic History: Reports: Anticoagulation Therapy Other Hematologic History: blood clots to legs Oncologic (Cancer) History: Reports: Malignant Melanoma Dermatologic History: Reports: Melanoma - Past Surgical History Cardiovascular Surgical History: Reports: Valve Replacement, Vascular Surgery GI Surgical History: Reports: Appendectomy, Cholecystectomy Female Surgical History: Reports: Hysterectomy, Oophorectomy, Tubal Ligation Social & Family History - Family History Family Medical History: Noncontributory - Caffeine Use Caffeine Use: Reports: Coffee - Living Situation & Occupation Living situation: Reports: Occupation: Unemployed ED ROS GENERAL - Review of Systems Review Of Systems: See Below Constitutional: Reports: No Symptoms HEENT: Reports: No Symptoms Respiratory: Reports: No Symptoms Cardiovascular: Reports: No Symptoms Endocrine: Reports: No Symptoms GI/Abdominal: Reports: Abdominal Pain, Nausea. Denies: Diarrhea, Vomiting : Reports: Flank Pain (right) Musculoskeletal: Reports: No Symptoms Skin: Reports: No Symptoms ED EXAM, GI/ABD - Physical Exam Exam: See Below Exam Limited By: No Limitations General Appearance: Alert, No Apparent Distress Ears: Normal External Exam Nose: Normal Inspection Head: Atraumatic, Normocephalic Neck: Normal Inspection Respiratory/Chest: No Respiratory Distress, Lungs Clear, Normal Breath Sounds Cardiovascular: Regular Rate, Rhythm, No Edema, No Murmur GI/Abdominal Exam: Soft, No Organomegaly, No Mass, Tender (Moderate to the right abdomen) Back Exam: CVA Tenderness (R) Extremities: Normal Inspection Course - Vital Signs Last Recorded V/S: Last Vital Signs Temp 97.8 F 03/25/20 16:58 Pulse 75 03/25/20 16:58 Resp 18 03/25/20 16:58 BP 133/96 H 03/25/20 16:58 Pulse Ox 96 03/25/20 16:58 - Orders/Labs/Meds Orders: Active Orders 24 hr Category Date Time Status Peripheral IV Care [RC] . DIRECTED Care 03/25/20 17:10 Active Sodium Chloride 0.9% [Normal Saline] 1,000 ml Med 03/25/20 17:15 Active IV ASDIRECTED Sodium Chloride 0.9% [Saline Flush] Med 03/25/20 17:09 Active 10 ml FLUSH ASDIRECTED PRN ED Antiemetic Medication Reflex [OM.PC] Stat Oth 03/25/20 17:09 Ordered Peripheral IV Insertion Adult [OM.PC] Stat Oth 03/25/20 17:09 Ordered Medication Orders Sodium Chloride (Normal Saline) 1,000 mls @ 125 mls/hr IV ASDIRECTED BILL Last Admin: 03/25/20 17:17 Dose: 125 mls/hr Sodium Chloride (Saline Flush) 10 ml FLUSH ASDIRECTED PRN PRN Reason: Keep Vein Open Last Admin: 03/25/20 17:16 Dose: 10 ml Labs: Laboratory Tests 03/25/20 03/25/20 03/25/20 Range/Units 17:17 17:17 17:17 WBC 7.08 (3.98-10.04) K/mm3 RBC 4.75 (3.98-5.22) M/mm3 Hgb 13.5 D (11.2-15.7) gm/dl Hct 41.3 (34.1-44.9) % MCV 86.9 (79.4-94.8) fl MCH 28.4 (25.6-32.2) pg MCHC 32.7 (32.2-35.5) g/dl RDW Std Deviation 46.1 (36.4-46.3) fL Plt Count 215 (182-369) K/mm3 MPV 12.5 H (9.4-12.3) fl Neut % (Auto) 64.5 (34.0-71.1) % Lymph % (Auto) 29.4 (19.3-51.7) % [place] % (Auto) 4.9 (4.7-12.5) % Eos % (Auto) 0.7 (0.7-5.8) Baso % (Auto) 0.4 (0.1-1.2) % Neut # (Auto) 4.56 (1.56-6.13) K/mm3 Lymph # (Auto) 2.08 (1.18-3.74) K/mm3 [place] # (Auto) 0.35 (0.24-0.36) K/mm3 Eos # (Auto) 0.05 (0.04-0.36) K/mm3 Baso # (Auto) 0.03 (0.01-0.08) K/mm3 PT 18.8 H D (9.7-12.0) SECONDS INR 1.78 Sodium 140 (136-145) mEq/L Potassium 3.8 (3.5-5.1) mEq/L Chloride 105 (98-107) mEq/L Carbon Dioxide 27 (21-32) mEq/L Anion Gap 11.8 (5-15) BUN 10 (7-18) mg/dL Creatinine 0.6 (0.55-1.02) mg/dL Est Cr Clr Drug Dosing 95.79 mL/min Estimated GFR (MDRD) > 60 (>60) mL/min BUN/Creatinine Ratio 16.7 (14-18) Glucose 97 (74-106) mg/dL Calcium 9.0 (8.5-10.1) mg/dL Total Bilirubin 0.7 (0.2-1.0) mg/dL AST 20 (15-37) U/L ALT 29 (14-59) U/L Alkaline Phosphatase 62 (46-116) U/L Total Protein 7.0 (6.4-8.2) g/dl Albumin 3.9 (3.4-5.0) g/dl Globulin 3.1 gm/dL Albumin/Globulin Ratio 1.3 (1-2) Lipase 126 (73-393) U/L Urine Color (Yellow) Urine Appearance (Clear) Urine pH (5.0-8.0) Ur Specific [place] (1.005-1.030) Urine Protein (Negative) Urine Glucose (UA) (Negative) Urine Ketones (Negative) Urine Occult Blood (Negative) Urine Nitrite (Negative) Urine Bilirubin (Negative) Urine Urobilinogen (0.2-1.0) Ur Leukocyte Esterase (Negative) Urine RBC (0-5) /hpf Urine WBC (0-5) /hpf Ur Squamous Epith Cells (0-5) /hpf Amorphous Sediment (NOT SEEN) /hpf Urine Bacteria (FEW) /hpf Urine Mucus (FEW) /hpf 03/25/20 Range/Units 18:22 WBC (3.98-10.04) K/mm3 RBC (3.98-5.22) M/mm3 Hgb (11.2-15.7) gm/dl Hct (34.1-44.9) % MCV (79.4-94.8) fl MCH (25.6-32.2) pg MCHC (32.2-35.5) g/dl RDW Std Deviation (36.4-46.3) fL Plt Count (182-369) K/mm3 MPV (9.4-12.3) fl Neut % (Auto) (34.0-71.1) % Lymph % (Auto) (19.3-51.7) % [place] % (Auto) (4.7-12.5) % Eos % (Auto) (0.7-5.8) Baso % (Auto) (0.1-1.2) % Neut # (Auto) (1.56-6.13) K/mm3 Lymph # (Auto) (1.18-3.74) K/mm3 [place] # (Auto) (0.24-0.36) K/mm3 Eos # (Auto) (0.04-0.36) K/mm3 Baso # (Auto) (0.01-0.08) K/mm3 PT (9.7-12.0) SECONDS INR Sodium (136-145) mEq/L Potassium (3.5-5.1) mEq/L Chloride (98-107) mEq/L Carbon Dioxide (21-32) mEq/L Anion Gap (5-15) BUN (7-18) mg/dL Creatinine (0.55-1.02) mg/dL Est Cr Clr Drug Dosing mL/min Estimated GFR (MDRD) (>60) mL/min BUN/Creatinine Ratio (14-18) Glucose (74-106) mg/dL Calcium (8.5-10.1) mg/dL Total Bilirubin (0.2-1.0) mg/dL AST (15-37) U/L ALT (14-59) U/L Alkaline Phosphatase (46-116) U/L Total Protein (6.4-8.2) g/dl Albumin (3.4-5.0) g/dl Globulin gm/dL Albumin/Globulin Ratio (1-2) Lipase (73-393) U/L Urine Color Yellow (Yellow) Urine Appearance Cloudy H (Clear) Urine pH 8.0 (5.0-8.0) Ur Specific [place] 1.020 (1.005-1.030) Urine Protein Negative (Negative) Urine Glucose (UA) Negative (Negative) Urine Ketones Negative (Negative) Urine Occult Blood Negative (Negative) Urine Nitrite Negative (Negative) Urine Bilirubin Negative (Negative) Urine Urobilinogen 1.0 (0.2-1.0) Ur Leukocyte Esterase Negative (Negative) Urine RBC Not seen (0-5) /hpf Urine WBC 0-5 (0-5) /hpf Ur Squamous Epith Cells 0-5 (0-5) /hpf Amorphous Sediment Many H (NOT SEEN) /hpf Urine Bacteria Rare (FEW) /hpf Urine Mucus Not seen (FEW) /hpf Meds: Medications Generic Name Dose Route Start Last Admin Trade Name Freq PRN Reason Stop Dose Admin Sodium Chloride 1,000 mls @ 125 mls/hr 03/25/20 17:15 03/25/20 17:17 Normal Saline IV 125 mls/hr ASDIRECTED BILL Administration Sodium Chloride 10 ml 03/25/20 17:09 03/25/20 17:16 Saline Flush FLUSH 10 ml ASDIRECTED PRN Administration Keep Vein Open Discontinued Medications Generic Name Dose Route Start Last Admin Trade Name Freq PRN Reason Stop Dose Admin Hydromorphone HCl 1 mg 03/25/20 17:10 03/25/20 17:16 Dilaudid IVPUSH 03/25/20 17:11 1 mg ONETIME ONE Administration Hydromorphone HCl 1 mg 03/25/20 18:10 03/25/20 18:24 Dilaudid IVPUSH 03/25/20 18:11 1 mg ONETIME ONE Administration Ketorolac Tromethamine 30 mg 03/25/20 17:10 03/25/20 18:02 Toradol IVPUSH 03/25/20 17:11 Not Given ONETIME ONE Ondansetron HCl 4 mg 03/25/20 17:09 03/25/20 17:16 Zofran IVPUSH 03/25/20 17:10 4 mg ONETIME ONE Administration - Re-Assessments/Exams Free Text/Narrative Re-Assessment/Exam: 03/25/20 17:14 I ordered an IV NS at 125ml/hr, zofran 4mg IV, dilaudid 1mg IV, toradol 30mg IV , labs, UA and a CT of her abdomen and pelvis without contrast to look for a renal stone. 03/25/20 18:37 Her CBC and CMP look good. Her INR was 1.78. Her lipase is normal. Her CT shows considerable artifact from high density material within the colon. No renal calculi or ureteral dilatation is seen. Artifact obscures complete evaluation of the ureters but no secondary evidence of ureteral obstructing stone is seen. Other findings as noted above believed to be nonacute and incidental. I am waiting on her UA. 03/25/20 19:02 Her UA looks good. It is not clear at this time why she is hurting. I will give her something for pain and have her follow up with her doctor. Departure - Departure Time of Disposition: 19:05 Disposition: Home, Self-Care 01 Condition: Good Clinical Impression: Abdominal pain Qualifiers: Abdominal location: right lower quadrant Qualified Code(s): R10.31 - Right lower quadrant pain - Discharge Information *PRESCRIPTION DRUG MONITORING PROGRAM REVIEWED*: No *COPY OF PRESCRIPTION DRUG MONITORING REPORT IN PATIENT ERUM: No Prescriptions: Hydrocodone/Acetaminophen [Hydrocodone-Acetamin 5-325 mg] 1 - 2 each PO Q6HR PRN #20 tablet PRN Reason: Pain Referrals: Olivia Palacios MD [Primary Care Provider] - 1 Week Forms: ED Department Discharge Additional Instructions: Drink plenty of fluids. Take tylenol or motrin for pain. If that does not help , try the hydrocodone. Follow up with your doctor. Please return if you are worse. Sepsis Event Note - Evaluation Sepsis Screening Result: No Definite Risk - Focused Exam Vital Signs: Vital Signs Temp Pulse Resp BP Pulse Ox 03/25/20 16:58 97.8 F 75 18 133/96 H 96 Date Exam was Performed: 03/25/20 Time Exam was Performed: 19:02 - My Orders Last 24 Hours: My Active Orders 03/25/20 17:09 Sodium Chloride 0.9% [Saline Flush] 10 ml FLUSH ASDIRECTED PRN ED Antiemetic Medication Reflex [OM.PC] Stat Peripheral IV Insertion Adult [OM.PC] Stat 03/25/20 17:10 Peripheral IV Care [RC] . DIRECTED 03/25/20 17:15 Sodium Chloride 0.9% [Normal Saline] 1,000 ml IV ASDIRECTED - Assessment/Plan Last 24 Hours: My Active Orders 03/25/20 17:09 Sodium Chloride 0.9% [Saline Flush] 10 ml FLUSH ASDIRECTED PRN ED Antiemetic Medication Reflex [OM.PC] Stat Peripheral IV Insertion Adult [OM.PC] Stat 03/25/20 17:10 Peripheral IV Care [RC] . DIRECTED 03/25/20 17:15 Sodium Chloride 0.9% [Normal Saline] 1,000 ml IV ASDIRECTED
[2020-03-25] MEDS: Ketorolac 30 MG/ML SDV IVPUSH ONE ×2 (17:16→18:02)
--- NOTE | 2020-03-25 18:01 | CT ---
CT abdomen and pelvis Technique: Multiple axial sections were obtained from above the dome of the diaphragm inferiorly through the pubic symphysis. Intravenous contrast and oral contrast not given. Comparison: Previous CT abdomen and pelvis performed as a angiogram protocol. Findings: Slight scarring is seen within the lung bases. Nothing acute is seen. Liver shows a small cyst within the posterior right lobe. This finding measures about 8 mm. No additional abnormality is appreciated within the liver. Surgical clips are seen from prior cholecystectomy. Spleen size is normal. Adrenal glands show no nodule. Pancreas is within normal limits. Kidneys show no abnormal calcifications. Ureters show no dilatation. Considerable artifact is noted from high density material within the colon. No secondary evidence to suggest ureteral obstruction is seen. No discrete pelvic abnormality is noted. Numerous superficial varicosities are seen within the subcutaneous fat of the lower pelvis. Appendix is not visualized due to artifact. Bone window settings were reviewed which shows no acute osseous finding. Impression: 1. Considerable artifact from high density material within the colon. 2. No renal calculi or ureteral dilatation is seen. Artifact obscures complete evaluation of the ureters but no secondary evidence of ureteral obstructing stone is seen. 3. Other findings as noted above believed to be nonacute and incidental. Diagnostic code #3 This report was dictated in MDT
== END 2020-03-25 19:13 | disposition home or self-care (01) ==
LOC: JD.ED 16:46
DX: R10.31 Right lower quadrant pain (principal); E78.00 Pure hypercholesterolemia, unspecified; I10 Essential (primary) hypertension; K21.9 Gastro-esophageal reflux disease without esophagitis; Z79.01 Long term (current) use of anticoagulants; Z79.899 Other long term (current) drug therapy; Z88.6 Allergy status to analgesic agent; Z88.8 Allergy status to other drugs, medicaments and biological substances; Z91.041 Radiographic dye allergy status; Z91.013 Allergy to seafood
CPT/HCPCS: 36415; 74176; 80053; 81001; 83690; 85025; 85610; 96361; 96374; 96376; 99284; J1170; J2405; J7030; 96375; J1885

== ENCOUNTER 2020-04-20 06:27 | Emergency (ER) | payer BC ==
--- NOTE | 2020-04-20 07:48 | EDM.PDOCBH ---
ED HPI GENERAL MEDICAL PROBLEM - General Chief Complaint: Behavioral/Psych Stated Complaint: [facility] Time Seen by Provider: 04/20/20 07:00 Source of Information: Reports: Patient, Family History Limitations: Reports: No Limitations - History of Present Illness INITIAL COMMENTS - FREE TEXT/NARRATIVE: The patient presents by [facility] for suicidal ideation. The patient had surgery recently at [facility] for a hernia. She was there last night in the ER for abdominal pain. They did a CT and everything was fine. She left before discharge because she was frustrated. She has had medical issues for the past year. She has been depressed. Early this morning she was going to kill herself. She grabbed a kitchen knife and she was going to cut herself but her took the knife away. She then took some of her pills. She took maybe 6 to 8 tramadol and toradol. She did not take anything else. Her called 911 to get her some help. She is crying for my exam and she does not answer any questions. Onset: Gradual Duration: Week(s): Location: Reports: Other Quality: Reports: Other Severity: Severe Improves with: Reports: None Worsens with: Reports: None Associated Symptoms: Reports: No Other Symptoms - Related Data Allergies Allergy/AdvReac Type Severity Reaction Status Date / Time ibuprofen Allergy Severe Rash Verified 04/20/20 06:38 cyclobenzaprine Allergy Rash Verified 04/20/20 06:38 [From Flexeril] Iodinated Contrast Media Allergy Rash Verified 04/20/20 06:38 [Iodinated Contrast- Oral and IV Dye] tizanidine [From Zanaflex] Allergy Rash Verified 04/20/20 06:38 seafood Allergy Rash Uncoded 11/26/19 14:22 Home Meds: Home Meds Lisinopril 2.5 mg PO DAILY 10/14/18 [History] Omeprazole 40 mg PO DAILY 10/14/18 [History] Warfarin [Coumadin] 7.5 mg PO SUTUTHSA 11/22/18 [History] Simvastatin [Zocor] 10 mg PO BEDTIME 02/10/19 [History] Warfarin [Coumadin] 5 mg PO MOWEFR 07/31/19 [History] Ferrous Sulfate [Iron] 325 mg PO DAILY 09/14/19 [History] Oxybutynin 10 mg PO DAILY 10/31/19 [History] Sucralfate 1 gm PO ASDIRECTED #24 tablet 11/26/19 [Rx] Hydrocodone/Acetaminophen [Hydrocodone-Acetamin 5-325 mg] 1 - 2 each PO Q6HR PRN #20 tablet 03/25/20 [Rx] Past Medical History Cardiovascular History: Reports: Blood Clots/VTE/DVT, High Cholesterol, Hypertension Other Cardiovascular History: mitral,leaking valve Respiratory History: Reports: Other (See Below) Gastrointestinal History: Reports: GERD Other Gastrointestinal History: e.coli, unsure if had h pilori Genitourinary History: Reports: Urinary Incontinence 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: Musculoskeletal History: Reports: Back Pain, Chronic Psychiatric History: Reports: Anxiety Hematologic History: Reports: Anticoagulation Therapy Other Hematologic History: blood clots to legs Oncologic (Cancer) History: Reports: Malignant Melanoma Dermatologic History: Reports: Melanoma - Past Surgical History Cardiovascular Surgical History: Reports: Valve Replacement, Vascular Surgery GI Surgical History: Reports: Appendectomy, Cholecystectomy Female Surgical History: Reports: Hysterectomy, Oophorectomy, Tubal Ligation Social & Family History - Family History Family Medical History: Noncontributory - Tobacco Use Smoking Status *Q: Unknown Ever Smoked - Caffeine Use Caffeine Use: Reports: Coffee - Living Situation & Occupation Living situation: Reports: Occupation: Unemployed ED ROS GENERAL - Review of Systems Review Of Systems: Unable To Obtain Reason Not Obtained: The patient will not answer my questions ED EXAM, BEHAVIORAL HEALTH - Physical Exam Exam: See Below Exam Limited By: Other (She will not talk to me) General Appearance: Alert, Mild Distress (she is crying) Ears: Normal External Exam Nose: Normal Inspection Head: Atraumatic, Normocephalic Neck: Normal Inspection Respiratory/Chest: No Respiratory Distress, Lungs Clear, Normal Breath Sounds Cardiovascular: Regular Rate, Rhythm, No Edema, No Murmur GI/Abdominal: Soft, Non-Tender, No Organomegaly, No Mass Back Exam: Normal Inspection Extremities: Normal Inspection COURSE, BEHAVIORAL HEALTH COMP - Course Vital Signs: Last Vital Signs Temp 97.8 F 04/20/20 06:35 Pulse 88 04/20/20 06:35 Resp 24 H 04/20/20 06:35 BP 171/105 H 04/20/20 06:35 Pulse Ox 100 04/20/20 06:35 Orders, Labs, Meds: Active Orders 24 hr Category Date Time Status Cardiac Monitoring [RC] . DIRECTED Care 04/20/20 07:15 Active Laboratory Tests 04/20/20 04/20/20 04/20/20 Range/Units 07:25 07:25 07:25 WBC 8.54 (3.98-10.04) K/mm3 RBC 5.06 (3.98-5.22) M/mm3 Hgb 14.3 (11.2-15.7) gm/dl Hct 43.9 (34.1-44.9) % MCV 86.8 (79.4-94.8) fl MCH 28.3 (25.6-32.2) pg MCHC 32.6 (32.2-35.5) g/dl RDW Std Deviation 43.8 (36.4-46.3) fL Plt Count 261 (182-369) K/mm3 MPV 12.2 (9.4-12.3) fl Neut % (Auto) 75.9 H (34.0-71.1) % Lymph % (Auto) 16.6 L (19.3-51.7) % [place] % (Auto) 4.9 (4.7-12.5) % Eos % (Auto) 1.4 (0.7-5.8) Baso % (Auto) 1.1 (0.1-1.2) % Neut # (Auto) 6.48 H (1.56-6.13) K/mm3 Lymph # (Auto) 1.42 (1.18-3.74) K/mm3 [place] # (Auto) 0.42 H (0.24-0.36) K/mm3 Eos # (Auto) 0.12 (0.04-0.36) K/mm3 Baso # (Auto) 0.09 H (0.01-0.08) K/mm3 Sodium 143 (136-145) mEq/L Potassium 4.0 (3.5-5.1) mEq/L Chloride 105 (98-107) mEq/L Carbon Dioxide 25 (21-32) mEq/L Anion Gap 17.0 H (5-15) BUN 7 (7-18) mg/dL Creatinine 0.8 (0.55-1.02) mg/dL Est Cr Clr Drug Dosing 80.90 mL/min Estimated GFR (MDRD) > 60 (>60) mL/min BUN/Creatinine Ratio 8.8 L (14-18) Glucose 88 (74-106) mg/dL Calcium 9.3 (8.5-10.1) mg/dL Total Bilirubin 1.1 H (0.2-1.0) mg/dL AST 25 (15-37) U/L ALT 20 (14-59) U/L Alkaline Phosphatase 71 (46-116) U/L Total Protein 7.3 (6.4-8.2) g/dl Albumin 3.7 (3.4-5.0) g/dl Globulin 3.6 gm/dL Albumin/Globulin Ratio 1.0 (1-2) TSH 3rd Generation 0.748 (0.358-3.74) uIU/mL Salicylates 3.3 (2.8-20) mg/dL Urine Opiates Screen (POVHAC=601) Ur Buprenorphine Scrn (CUTOFF=10) Ur Oxycodone Screen (QEJ3KD=558) Urine Methadone Screen (JGACZR=244) Ur Propoxyphene Screen (TDHLRS=169) Acetaminophen 0 L (10-30) ug/mL Ur Barbiturates Screen (AJACKU=810) Ur Tricyclics Screen (GYGZAB=865) Ur Phencyclidine Scrn (CUTOFF=25) Ur Amphetamine Screen (IOXSLN=330) U Methamphetamines Scrn (FDYJEK=138) U Benzodiazepines Scrn (HSLUDU=895) U Cocaine Metab Screen (LBZEFT=580) U Marijuana (THC) Screen (CUTOFF=50) Ethyl Alcohol 0.00 (0.00) gm% 04/20/20 Range/Units 08:43 WBC (3.98-10.04) K/mm3 RBC (3.98-5.22) M/mm3 Hgb (11.2-15.7) gm/dl Hct (34.1-44.9) % MCV (79.4-94.8) fl MCH (25.6-32.2) pg MCHC (32.2-35.5) g/dl RDW Std Deviation (36.4-46.3) fL Plt Count (182-369) K/mm3 MPV (9.4-12.3) fl Neut % (Auto) (34.0-71.1) % Lymph % (Auto) (19.3-51.7) % [place] % (Auto) (4.7-12.5) % Eos % (Auto) (0.7-5.8) Baso % (Auto) (0.1-1.2) % Neut # (Auto) (1.56-6.13) K/mm3 Lymph # (Auto) (1.18-3.74) K/mm3 [place] # (Auto) (0.24-0.36) K/mm3 Eos # (Auto) (0.04-0.36) K/mm3 Baso # (Auto) (0.01-0.08) K/mm3 Sodium (136-145) mEq/L Potassium (3.5-5.1) mEq/L Chloride (98-107) mEq/L Carbon Dioxide (21-32) mEq/L Anion Gap (5-15) BUN (7-18) mg/dL Creatinine (0.55-1.02) mg/dL Est Cr Clr Drug Dosing mL/min Estimated GFR (MDRD) (>60) mL/min BUN/Creatinine Ratio (14-18) Glucose (74-106) mg/dL Calcium (8.5-10.1) mg/dL Total Bilirubin (0.2-1.0) mg/dL AST (15-37) U/L ALT (14-59) U/L Alkaline Phosphatase (46-116) U/L Total Protein (6.4-8.2) g/dl Albumin (3.4-5.0) g/dl Globulin gm/dL Albumin/Globulin Ratio (1-2) TSH 3rd Generation (0.358-3.74) uIU/mL Salicylates (2.8-20) mg/dL Urine Opiates Screen Negative (XAEPCA=217) Ur Buprenorphine Scrn Negative (CUTOFF=10) Ur Oxycodone Screen Negative (GLZ6VI=591) Urine Methadone Screen Negative (YNVOGD=250) Ur Propoxyphene Screen Negative (XTWTYN=603) Acetaminophen (10-30) ug/mL Ur Barbiturates Screen Negative (VFMJZL=462) Ur Tricyclics Screen Negative (PCQVXZ=439) Ur Phencyclidine Scrn Negative (CUTOFF=25) Ur Amphetamine Screen Negative (FEVPCP=723) U Methamphetamines Scrn Negative (TDWGHZ=089) U Benzodiazepines Scrn Presumptive positive H (FZJXZH=676) U Cocaine Metab Screen Negative (IUBPTF=435) U Marijuana (THC) Screen Presumptive positive H (CUTOFF=50) Ethyl Alcohol (0.00) gm% Medications Discontinued Medications Generic Name Dose Route Start Last Admin Trade Name Sage PRN Reason Stop Dose Admin Hydrocodone Bitart/Acetaminophen 2 tab 04/20/20 08:42 04/20/20 08:47 [place] 325-5 Mg PO 04/20/20 08:43 2 tab ONETIME ONE Administration Haloperidol Lactate 5 mg 04/20/20 09:25 04/20/20 09:54 Haldol IM 04/20/20 09:26 5 mg ONETIME ONE Administration Lorazepam 1 mg 04/20/20 07:53 04/20/20 08:04 Ativan PO 04/20/20 07:54 1 mg ONETIME ONE Administration Re-Assessment/Re-Exam: I ordered labs and a urine drug screen. I gave her ativan 1mg PO to help her relax. Her CBC and CMP look good. Her TSH is negative. Her salicylates and acetaminophen are negative. Her UDS was presumptive positive fo benzos and marijuana. Her ETOH is 0. She had some abdominal pain so I ordered hydrocodone X 2. She is still crying and anxious. I gave her haldol 5mg IM. I called [facility] in [place] and talked with Dr Hurley. She accepted the patient. We are arranging transportation now. Poison control called back and they are signing off of the patient. They are not concerned about the tramadol and toradol she took. There was only about 6 pills gone max. Departure - Departure Time of Disposition: 10:10 Disposition: DC/Tfer to Psych Hosp[facility] Condition: Serious Clinical Impression: Depressive disorder, Suicide attempt - Discharge Information Referrals: Olivia Palacios MD [Primary Care Provider] - Forms: ED Department Discharge Sepsis Event Note - Evaluation Sepsis Screening Result: No Definite Risk - Focused Exam Vital Signs: Vital Signs Temp Pulse Resp BP Pulse Ox 04/20/20 06:35 97.8 F 88 24 H 171/105 H 100 Date Exam was Performed: 04/20/20 Time Exam was Performed: 10:00 - My Orders Last 24 Hours: My Active Orders 04/20/20 07:15 Cardiac Monitoring [RC] . DIRECTED - Assessment/Plan Last 24 Hours: My Active Orders 04/20/20 07:15 Cardiac Monitoring [RC] . DIRECTED
[2020-04-20] MEDS ORDERED: LORazepam 1 MG Tab PO ONE (07:53)
[2020-04-20 08:19] LABS: ACETAMINOPHEN 0 ug/mL (10-30)
[2020-04-20] MEDS ORDERED: Acetaminophen/HYDROcodone 325-5 MG Tab PO ONE (08:42)
[2020-04-20] MEDS ORDERED: Haloperidol Lactate 5 MG/ML SDV IM ONE (09:25)
== END 2020-04-20 11:45 ==
LOC: JD.ED 06:27
DX: T39.8X2A Poisoning by other nonopioid analgesics and antipyretics, not elsewhere classified, intentional self-harm, initial encounter (principal); T40.4X2A Poisoning by other synthetic narcotics, intentional self-harm, initial encounter; F32.9 Major depressive disorder, single episode, unspecified; E78.00 Pure hypercholesterolemia, unspecified; I10 Essential (primary) hypertension; K21.9 Gastro-esophageal reflux disease without esophagitis; Z79.01 Long term (current) use of anticoagulants; Z79.899 Other long term (current) drug therapy; Z88.6 Allergy status to analgesic agent; Z88.8 Allergy status to other drugs, medicaments and biological substances; Z91.041 Radiographic dye allergy status; Z91.013 Allergy to seafood
CPT/HCPCS: 36415; 80053; 80306; 80307; 84443; 85025; 96372; 99285; A9270; J1630

== ENCOUNTER 2020-04-21 22:16 | Emergency (ER) | payer BC ==
[2020-04-21] MEDS ORDERED: HYDROmorphone 1 MG/ML Syringe IVPUSH STA (22:53)
[2020-04-21] MEDS ORDERED: Ondansetron 4 MG/2 ML SDV IVPUSH ONE (22:53)
--- NOTE | 2020-04-21 22:58 | EDM.PDOC ---
ED HPI GENERAL MEDICAL PROBLEM - General Chief Complaint: Abdominal Pain Stated Complaint: VOMITING ABDOMINAL PAIN Time Seen by Provider: 04/21/20 22:30 Source of Information: Reports: Patient, Family () History Limitations: Reports: Language Barrier (Patient's acted as translator and interpreter), Physical Impairment (Patient is upset, does not want to answer questions) - History of Present Illness INITIAL COMMENTS - FREE TEXT/NARRATIVE: Mrs. Vega is a pleasant 49-year-old woman with a past medical history significant for untreated anxiety and untreated GERD, who is now brought to the ED by her , who tells me that she developed nausea, vomiting, watery diarrhea, generalized abdominal pain, a headache, the sensation of animals running in her veins, and chills around 18:00 tonight, after eating dinner. Her , who ate the same dinner, did not develop any symptoms. The patient's tells me that the patient had similar symptoms once before , in 2014, while in [place]. She was hospitalized, and told that she had E. coli. Here in the ED, the patient's initial BP is found to be elevated at 208/128, otherwise, she is hemodynamically stable, afebrile, saturating 99% on room air. Other than the above symptoms, the patient denies recent fever, chills, sore throat, ear pain, nasal or sinus congestion, cough, dyspnea, chest pain, palpitations, nausea, vomiting, constipation, diarrhea, abdominal pain, urinary symptoms, recent weight gain or weight loss, recent bloody bowel movements or black bowel movements, recent joint aches, headaches, or rashes. The patient is on Coumadin following a mechanical mitral valve replacement. The patient's tells me that the patient had her INR checked just yesterday, but the patient does not recall what her INR was. The patient's PCP is Olivia Palacios NP. Her Supervisor [employer], whose name she does not recall, is at [facility]. Abdomen Pain Score (Numeric/FACES): 10 - Related Data Allergies Allergy/AdvReac Type Severity Reaction Status Date / Time ibuprofen Allergy Severe Rash Verified 04/21/20 22:27 cyclobenzaprine Allergy Rash Verified 04/21/20 22:27 [From Flexeril] Iodinated Contrast Media Allergy Rash Verified 04/21/20 22:27 [Iodinated Contrast- Oral and IV Dye] tizanidine [From Zanaflex] Allergy Rash Verified 04/21/20 22:27 seafood Allergy Rash Uncoded 04/21/20 22:27 Home Meds: Home Meds Lisinopril 2.5 mg PO DAILY 10/14/18 [History] Omeprazole 40 mg PO DAILY 10/14/18 [History] Warfarin [Coumadin] 7.5 mg PO SUTUTHSA 11/22/18 [History] Simvastatin [Zocor] 10 mg PO BEDTIME 02/10/19 [History] Warfarin [Coumadin] 5 mg PO MOWEFR 07/31/19 [History] Ferrous Sulfate [Iron] 325 mg PO DAILY 09/14/19 [History] Oxybutynin 10 mg PO DAILY 10/31/19 [History] Ondansetron [Zofran ODT] 1 tab PO Q8H PRN #10 tab.dis 04/22/20 [Rx] Past Medical History Cardiovascular History: Reports: Blood Clots/VTE/DVT, Heart Valve Replacement ( Mitral valve regurgitation, status post mechanical MVR), High Cholesterol, Hypertension Gastrointestinal History: Reports: GERD (untreated) Psychiatric History: Reports: Anxiety (untreated) Hematologic History: Reports: Anticoagulation Therapy (Coumadin) Oncologic (Cancer) History: Reports: Squamous Cell Carcinoma (face) - Past Surgical History Cardiovascular Surgical History: Reports: Valve Replacement (mechanical mitral around 2009) GI Surgical History: Reports: Appendectomy, Cholecystectomy (1997), Hernia, Abdominal Female Surgical History: Reports: Oophorectomy (right) Oncologic Surgical History: Reports: Other (See Below) (SCC excised off face) Social & Family History - Family History Family Medical History: Noncontributory - Tobacco Use Smoking Status *Q: Current Every Day Smoker Years of Tobacco use: 33 Packs/Tins Daily: 0.3 Packs/Tins Daily Comment: Down from 1 ppd - Caffeine Use Caffeine Use: Reports: Coffee - Alcohol Use Alcohol Use History: No - Recreational Drug Use Recreational Drug Use: Yes Drug Use in Last 12 Months: Yes Recreational Drug Type: Reports: Marijuana/Hashish (smokes on occasion - last late March 2020) - Living Situation & Occupation Living situation: Reports: , with Spouse Occupation: Unemployed ED ROS GENERAL - Review of Systems Review Of Systems: Comprehensive ROS is negative, except as noted in HPI. ED EXAM, GI/ABD - Physical Exam Exam: See Below Exam Limited By: No Limitations General Appearance: Alert, WD/WN, Anxious, Mild Distress (Patient is crying, constantly in motion) Eyes: Bilateral: Normal Appearance, EOMI Ears: Normal External Exam, Hearing Grossly Normal Nose: Normal Inspection Throat/Mouth: Normal Inspection, Normal Lips, Normal Voice, No Airway Compromise Head: Atraumatic, Normocephalic Neck: Normal Inspection, Full Range of Motion Respiratory/Chest: No Respiratory Distress, Lungs Clear, Normal Breath Sounds, No Accessory Muscle Use Cardiovascular: Normal Peripheral Pulses, Regular Rate, Rhythm, No Edema, No Gallop, No JVD, No Murmur, No Rub GI/Abdominal Exam: Normal Bowel Sounds, Soft, No Organomegaly, No Distention, No Abnormal Bruit, No Mass, Tender (Exquisite, across the entire abdomen. The patient reports no area of less tenderness.) (Female) Exam: Deferred Rectal (Female) Exam: Deferred Back Exam: Normal Inspection, Full Range of Motion. No: CVA Tenderness (L), CVA Tenderness (R) Extremities: Normal Inspection, Normal Range of Motion, No Pedal Edema, Normal Capillary Refill Neurological: Alert, Oriented, Normal Cognition, No Motor/Sensory Deficits Psychiatric: Anxious Skin Exam: Warm, Dry, Intact, Normal Color, No Rash Course - Vital Signs Last Recorded V/S: Last Vital Signs Temp 36.6 C 04/21/20 22:24 Pulse 93 04/21/20 22:24 Resp 18 04/21/20 22:24 BP 208/128 H 04/21/20 22:24 Pulse Ox 99 04/21/20 22:24 - Orders/Labs/Meds Orders: Active Orders 24 hr Category Date Time Status Abdomen Pelvis w Cont [CT] Stat Exams 04/21/20 22:53 Taken Labs: Laboratory Tests 04/21/20 04/21/20 04/21/20 Range/Units 23:08 23:08 23:08 WBC 11.19 H (3.98-10.04) K/mm3 RBC 5.17 (3.98-5.22) M/mm3 Hgb 14.8 (11.2-15.7) gm/dl Hct 44.4 (34.1-44.9) % MCV 85.9 (79.4-94.8) fl MCH 28.6 (25.6-32.2) pg MCHC 33.3 (32.2-35.5) g/dl RDW Std Deviation 43.1 (36.4-46.3) fL Plt Count 249 (182-369) K/mm3 MPV 12.1 (9.4-12.3) fl Neutrophils % (Manual) 79 H (40-60) % Band Neutrophils % 0 (0-10) % Lymphocytes % (Manual) 16 L (20-40) % Atypical Lymphs % 0 % Monocytes % (Manual) 4 (2-10) % Eosinophils % (Manual) 1 (0.7-5.8) % Basophils % (Manual) 0 L (0.1-1.2) Platelet Estimate Adequate RBC Morph Comment Normal PT 28.2 H D (9.7-12.0) SECONDS INR 2.74 Sodium 143 (136-145) mEq/L Potassium 3.8 (3.5-5.1) mEq/L Chloride 106 (98-107) mEq/L Carbon Dioxide 22 (21-32) mEq/L Anion Gap 18.8 H (5-15) BUN 16 (7-18) mg/dL Creatinine 1.0 (0.55-1.02) mg/dL Est Cr Clr Drug Dosing TNP Estimated GFR (MDRD) 58 (>60) mL/min BUN/Creatinine Ratio 16.0 (14-18) Glucose 180 H (74-106) mg/dL Calcium 9.3 (8.5-10.1) mg/dL Total Bilirubin 1.0 (0.2-1.0) mg/dL AST 22 (15-37) U/L ALT 17 (14-59) U/L Alkaline Phosphatase 75 (46-116) U/L Total Protein 7.3 (6.4-8.2) g/dl Albumin 4.0 (3.4-5.0) g/dl Globulin 3.3 gm/dL Albumin/Globulin Ratio 1.2 (1-2) Lipase 233 (73-393) U/L Urine Color (Yellow) Urine Appearance (Clear) Urine pH (5.0-8.0) Ur Specific [place] (1.005-1.030) Urine Protein (Negative) Urine Glucose (UA) (Negative) Urine Ketones (Negative) Urine Occult Blood (Negative) Urine Nitrite (Negative) Urine Bilirubin (Negative) Urine Urobilinogen (0.2-1.0) Ur Leukocyte Esterase (Negative) Urine RBC (0-5) /hpf Urine WBC (0-5) /hpf Ur Epithelial Cells (0-5) /hpf Amorphous Sediment (NOT SEEN) /hpf Urine Bacteria (FEW) /hpf Urine Mucus (FEW) /hpf 04/22/20 Range/Units 00:37 WBC (3.98-10.04) K/mm3 RBC (3.98-5.22) M/mm3 Hgb (11.2-15.7) gm/dl Hct (34.1-44.9) % MCV (79.4-94.8) fl MCH (25.6-32.2) pg MCHC (32.2-35.5) g/dl RDW Std Deviation (36.4-46.3) fL Plt Count (182-369) K/mm3 MPV (9.4-12.3) fl Neutrophils % (Manual) (40-60) % Band Neutrophils % (0-10) % Lymphocytes % (Manual) (20-40) % Atypical Lymphs % % Monocytes % (Manual) (2-10) % Eosinophils % (Manual) (0.7-5.8) % Basophils % (Manual) (0.1-1.2) Platelet Estimate RBC Morph Comment PT (9.7-12.0) SECONDS INR Sodium (136-145) mEq/L Potassium (3.5-5.1) mEq/L Chloride (98-107) mEq/L Carbon Dioxide (21-32) mEq/L Anion Gap (5-15) BUN (7-18) mg/dL Creatinine (0.55-1.02) mg/dL Est Cr Clr Drug Dosing Estimated GFR (MDRD) (>60) mL/min BUN/Creatinine Ratio (14-18) Glucose (74-106) mg/dL Calcium (8.5-10.1) mg/dL Total Bilirubin (0.2-1.0) mg/dL AST (15-37) U/L ALT (14-59) U/L Alkaline Phosphatase (46-116) U/L Total Protein (6.4-8.2) g/dl Albumin (3.4-5.0) g/dl Globulin gm/dL Albumin/Globulin Ratio (1-2) Lipase (73-393) U/L Urine Color Yellow (Yellow) Urine Appearance Clear (Clear) Urine pH 8.0 (5.0-8.0) Ur Specific [place] 1.025 (1.005-1.030) Urine Protein Negative (Negative) Urine Glucose (UA) Negative (Negative) Urine Ketones 2+ H (Negative) Urine Occult Blood Negative (Negative) Urine Nitrite Negative (Negative) Urine Bilirubin Negative (Negative) Urine Urobilinogen 1.0 (0.2-1.0) Ur Leukocyte Esterase Negative (Negative) Urine RBC Not seen (0-5) /hpf Urine WBC Not seen (0-5) /hpf Ur Epithelial Cells 0-5 (0-5) /hpf Amorphous Sediment Moderate H (NOT SEEN) /hpf Urine Bacteria Few (FEW) /hpf Urine Mucus Not seen (FEW) /hpf Meds: Medications Discontinued Medications Generic Name Dose Route Start Last Admin Trade Name Freq PRN Reason Stop Dose Admin Diphenhydramine HCl 50 mg 04/22/20 00:25 04/22/20 00:32 Benadryl IVPUSH 04/22/20 00:26 50 mg ONETIME ONE Administration Hydromorphone HCl 1 mg 04/21/20 22:53 04/21/20 23:12 Dilaudid IVPUSH 04/21/20 22:54 1 mg ONETIME STA Administration Hydromorphone HCl 1 mg 04/22/20 01:52 04/22/20 02:06 Dilaudid IVPUSH 04/22/20 01:53 1 mg ONETIME ONE Administration Sodium Chloride 1,000 mls @ 150 mls/hr 04/21/20 23:00 04/21/20 23:10 Normal Saline IV 150 mls/hr ASDIRECTED BILL Administration Loperamide HCl 4 mg 04/22/20 02:45 04/22/20 02:56 Imodium PO 04/22/20 02:46 4 mg ONETIME STA Administration Lorazepam 1 mg 04/22/20 00:20 04/22/20 00:30 Ativan IVPUSH 04/22/20 00:21 1 mg ONETIME STA Administration Metoclopramide HCl 10 mg 04/21/20 23:54 04/22/20 00:12 Reglan IVPUSH 04/21/20 23:55 10 mg ONETIME STA Administration Metoclopramide HCl Confirm 04/22/20 00:09 04/22/20 00:14 Reglan Administered 04/22/20 00:10 10 mg Dose Administration 10 mg .ROUTE .STK-MED ONE Ondansetron HCl 4 mg 04/21/20 22:53 04/21/20 23:10 Zofran IVPUSH 04/21/20 22:54 4 mg ONETIME ONE Administration - Re-Assessments/Exams Free Text/Narrative Re-Assessment/Exam: 04/21/20 22:55 As above, the patient developed generalized abdominal pain, with nausea, vomiting, and watery diarrhea around 18:00 this evening. On examination, she has exquisite tenderness to her entire abdomen, with no CVA tenderness. Her abdomen, however, is soft with normoactive bowel sounds. The etiology of her symptoms is not immediately clear. I have ordered a work-up that includes blood work, a urinalysis by quick catheter, and a CT of her abdomen and pelvis with oral and IV contrast. In the meantime, the patient will be given IV Dilaudid, IV Zofran, and IV fluid. 04/21/20 23:45 The patient's CBC is remarkable for a WBC count slightly elevated at 11.19, but with 0% bandemia. The remainder of her CBC is unremarkable. Her CMP is remarkable for an anion gap elevated at 18.8, but with a bicarbonate normal at 22. Her blood glucose is elevated at 180, with the remainder of her CMP being unremarkable. Her lipase is within normal limits at 233. Her INR is therapeutic at 2.74. Review of prior labs finds that the patient does not ordinarily have hyperglycemia. 04/22/20 01:07 The patient's urinalysis, collected by clean-catch, is unremarkable. 04/22/20 02:17 CT of the abdomen and pelvis with oral and IV contrast as read by [facility] as: Circumferential wall thickening of the distal esophagus/proximal fundus. Consider inflammation or reflux related change. Wall thickening/prominence of the transverse and left colon. This may in part be due to contraction. Consider colitis in the correct clinical context. There appears to be transient small bowel dilation on delayed images suggesting peristaltic related change 04/22/20 02:44 Test results discussed with the patient and her . As above, shannon's work-up is grossly unremarkable and indicates that she is likely suffering from viral gastroenteritis. She will be given 4 mg of oral loperamide prior to discharge home. I will submit a prescription for Zofran, and I will recommend a bland diet with good fluid intake. Departure - Departure Time of Disposition: 02:46 Disposition: Home, Self-Care 01 Condition: Good Clinical Impression: Viral gastroenteritis, Prediabetes - Discharge Information *PRESCRIPTION DRUG MONITORING PROGRAM REVIEWED*: Not Applicable *COPY OF PRESCRIPTION DRUG MONITORING REPORT IN PATIENT ERUM: Not Applicable Prescriptions: Ondansetron [Zofran ODT] 1 tab PO Q8H PRN #10 tab.dis PRN Reason: Nausea/Vomiting Instructions: Prediabetes, Viral Gastroenteritis, Adult, [id number] Referrals: Olivia Palacios MD [Primary Care Provider] - Forms: ED Department Discharge Additional Instructions: You were seen in the emergency room after developing nausea, vomiting, diarrhea , abdominal pain, headache, chills, and the sensation of animals running in your veins. Work-up in the ER included blood work, a urinalysis, and a CT scan of your abdomen and pelvis with oral and IV contrast. Your work-up was remarkable for a blood glucose elevated at 180, indicating that you have a condition known as prediabetes. We recommend that you follow- up with your PCP, Olivia Palacios NP, to discuss this issue. The remainder of your work-up was unremarkable. Based on your history, physical exam, and ER tests, you are most likely suffering from viral gastroenteritis. As discussed, there are no medicines to get rid of viral gastroenteritis - it will have to run its course, however, there are medicines to treat its symptoms. You have been started on the antidiarrheal medicine loperamide (Imodium). Loperamide is available [id number]. Take 1 tablet (2 mg) of loperamide after each loose bowel movement, to a maximum of 8 tablets (16 mg) within a 24- hour period. A prescription for the anti-nausea medicine Zofran has been sent to the [facility], located at [address] [place] [address]. You may dissolve 1 tablet of Zofran on your tongue up to every 8 hours, as needed for nausea/vomiting. We recommend that you stay adequately hydrated. Gatorade or Powerade are best. If you are hungry, we recommend that you eat a bland diet, such as rice, oatmeal , or toast. Chicken noodle soup with saltine crackers is an excellent choice. If any other problems, please do not hesitate to return to the ER. Sepsis Event Note - Evaluation Sepsis Screening Result: No Definite Risk - Focused Exam Vital Signs: Vital Signs Temp Pulse Resp BP Pulse Ox 04/21/20 22:24 36.6 C 93 18 208/128 H 99 Date Exam was Performed: 04/22/20 Time Exam was Performed: 03:10 - My Orders Last 24 Hours: My Active Orders 04/21/20 22:53 Abdomen Pelvis w Cont [CT] Stat - Assessment/Plan Last 24 Hours: My Active Orders 04/21/20 22:53 Abdomen Pelvis w Cont [CT] Stat
[2020-04-21] MEDS ORDERED: Sodium Chloride 0.9% 1,000 ML IV SCH (23:00)
[2020-04-21] MEDS ORDERED: Metoclopramide 10 MG/2 ML SDV IVPUSH STA (23:54)
[2020-04-22] MEDS ORDERED: Metoclopramide 10 MG/2 ML SDV ONE (00:09)
[2020-04-22] MEDS ORDERED: LORazepam 2 MG/ML SDV IVPUSH STA (00:20)
[2020-04-22] MEDS ORDERED: diphenhydrAMINE 50 MG/ML SDV IVPUSH ONE (00:25)
[2020-04-22] MEDS ORDERED: HYDROmorphone 1 MG/ML Syringe IVPUSH ONE (01:52)
[2020-04-22] MEDS ORDERED: Loperamide 2 MG Cap PO STA (02:45)
--- NOTE | 2020-04-22 08:48 | CT ---
CT abdomen and pelvis Technique: Multiple axial sections were obtained from above the dome of the diaphragm inferiorly through the pubic symphysis. Intravenous contrast and oral contrast was utilized. Delayed images were also obtained through the bladder. Comparison: Prior CT abdomen and pelvis study of 03/25/20. Findings: Soft tissue swelling and thickening at the gastroesophageal junction. This is not appreciated on the prior noncontrast CT exam. Findings are suspicious for change from gastroesophageal reflux or other inflammatory change. Visualized lung bases shows areas of scarring. Small low density findings are seen within the right and left lobes of the liver which are believed to be benign. Spleen appears within normal limits. Adrenal glands show no nodule. Pancreas is within normal limits. Kidneys show symmetric contrast enhancement without hydronephrosis or mass. Surgical clips are noted from prior cholecystectomy. Aorta shows atherosclerotic change without aneurysm. No retroperitoneal adenopathy or mesenteric abnormalities are seen. No pelvic mass or adenopathy is seen. Appendix not visualized with certainty. No free fluid or inflammatory change is appreciated. Wall thickening seen within the transverse and left colon believed to relate to underdistention. Bone window settings were reviewed which shows mild degenerative change within the spine. No acute osseous finding is seen. Impression: 1. Abnormal appearance at the gastroesophageal junction either due to thickening from gastroesophageal reflux or other inflammatory process. This represents an interval change from prior CT exam. 2. Wall thickening within portions of the colon believed to be due to underdistention and of no acute significance. 3. No other acute abnormality is appreciated on CT study. Diagnostic code #3 This report was dictated in MDT I agree with preliminary report from [facility], finalized on 04/22/20, 3:14 AM Central Daylight Time
== END 2020-04-22 03:02 | disposition home or self-care (01) ==
LOC: JD.ED 22:16
DX: A08.4 Viral intestinal infection, unspecified (principal); R73.03 Prediabetes; K21.9 Gastro-esophageal reflux disease without esophagitis; E78.00 Pure hypercholesterolemia, unspecified; I10 Essential (primary) hypertension; F41.9 Anxiety disorder, unspecified; F17.210 Nicotine dependence, cigarettes, uncomplicated; Z88.6 Allergy status to analgesic agent; Z88.8 Allergy status to other drugs, medicaments and biological substances; Z91.041 Radiographic dye allergy status; Z91.013 Allergy to seafood; Z79.01 Long term (current) use of anticoagulants; Z79.899 Other long term (current) drug therapy
CPT/HCPCS: 36415; 74177; 80053; 81001; 83690; 85007; 85027; 85610; 96361; 96374; 96375; 96376; 99284; A9270; J1170; J1200; J2060; J2405; J2765; J7030

== ENCOUNTER 2020-04-22 09:12 | Emergency (ER) | payer BC ==
[2020-04-22] MEDS ORDERED: Sodium Chloride 0.9% 1,000 ML IV STA (09:39)
[2020-04-22] MEDS ORDERED: Sodium Chloride 0.9% 10 ML Syringe FLUSH PRN (09:39)
[2020-04-22] MEDS ORDERED: Ondansetron 4 MG/2 ML SDV IVPUSH ONE (09:39)
[2020-04-22] MEDS ORDERED: HYDROmorphone 1 MG/ML Syringe IVPUSH ONE (09:40)
[2020-04-22] MEDS ORDERED: Famotidine 20 MG/2 ML SDV IVPUSH ONE (09:40)
--- NOTE | 2020-04-22 11:07 | EDM.PDOC ---
ED HPI GENERAL MEDICAL PROBLEM - General Chief Complaint: Abdominal Pain Stated Complaint: VOMITING Time Seen by Provider: 04/22/20 09:26 Source of Information: Reports: Patient History Limitations: Reports: No Limitations - History of Present Illness INITIAL COMMENTS - FREE TEXT/NARRATIVE: The patient presents with her for abdominal pain, nausea and vomiting. She has been here many times the past week. She had hiatal hernia surgery done by Dr Combs a couple weeks ago. Her says she has been dealing with this for months. They were down in [place] dealing with this also. She was admitted to [facility] a few days ago and they were going to do an EGD but it sounds like the swallow study looked good and they did not do anything. She was upset in the hospital and her doctor did a psych consult. She left before that could happen. She was here again a couple days ago and tried to kill herself by cutting and overdose. She was sent back to [facility] for a psych admission and released shortly after she arrived. She was back here last night for more pain, nausea, vomiting and diarrhea. Dr Zaidi saw her and did a complete work up to include a CT of her abdomen and pelvis. The CT showed some inflammation of the GE junction. She was given some zofran and sent home. She is back now about 6 hours later for the same. Her said in the past she had E-coli and needed antibiotics. Onset: Gradual Duration: Week(s): Location: Reports: Abdomen Quality: Reports: Sharp Severity: Severe Improves with: Reports: None Worsens with: Reports: None Associated Symptoms: Reports: Nausea/Vomiting. Denies: Chest Pain, Cough, Fever /Chills, Headaches, Shortness of Breath Bilateral Abdomen Pain Score (Numeric/FACES): 10 - Related Data Allergies Allergy/AdvReac Type Severity Reaction Status Date / Time ibuprofen Allergy Severe Rash Verified 04/22/20 09:25 cyclobenzaprine Allergy Rash Verified 04/22/20 09:25 [From Flexeril] Iodinated Contrast Media Allergy Rash Verified 04/22/20 09:25 [Iodinated Contrast- Oral and IV Dye] tizanidine [From Zanaflex] Allergy Rash Verified 04/22/20 09:25 seafood Allergy Rash Uncoded 04/22/20 09:25 Home Meds: Home Meds Lisinopril 2.5 mg PO DAILY 10/14/18 [History] Omeprazole 40 mg PO DAILY 10/14/18 [History] Warfarin [Coumadin] 7.5 mg PO SUTUTHSA 11/22/18 [History] Simvastatin [Zocor] 10 mg PO BEDTIME 02/10/19 [History] Warfarin [Coumadin] 5 mg PO MOWEFR 07/31/19 [History] Ferrous Sulfate [Iron] 325 mg PO DAILY 09/14/19 [History] Oxybutynin 10 mg PO DAILY 10/31/19 [History] Amoxicillin 500 mg PO TID #15 tab 04/22/20 [Rx] Hydrocodone/Acetaminophen [Hydrocodone-Acetamin 5-325 mg] 1 - 2 each PO Q6HR PRN #15 tablet 04/22/20 [Rx] Ondansetron [Zofran ODT] 1 tab PO Q8H PRN #10 tab.dis 04/22/20 [Rx] Sucralfate [Carafate] 1 gm PO TID #30 tablet 04/22/20 [Rx] Past Medical History Cardiovascular History: Reports: Blood Clots/VTE/DVT, Heart Valve Replacement, High Cholesterol, Hypertension Other Cardiovascular History: mitral,leaking valve Respiratory History: Reports: Other (See Below) Gastrointestinal History: Reports: GERD, Hiatal Hernia Other Gastrointestinal History: e.coli, unsure if had h pilori Genitourinary History: Reports: Urinary Incontinence [facility] History: Reports: Musculoskeletal History: Reports: Back Pain, Chronic Neurological History: Reports: Headaches, Chronic Psychiatric History: Reports: Anxiety Hematologic History: Reports: Anticoagulation Therapy Other Hematologic History: blood clots to legs Oncologic (Cancer) History: Reports: Squamous Cell Carcinoma Dermatologic History: Reports: Melanoma - Infectious Disease History Infectious Disease History: Reports: Chicken Pox - Past Surgical History Cardiovascular Surgical History: Reports: Valve Replacement GI Surgical History: Reports: Appendectomy, Cholecystectomy, Hernia, Abdominal Female Surgical History: Reports: Oophorectomy Oncologic Surgical History: Reports: Other (See Below) Social & Family History - Family History Family Medical History: Noncontributory - Tobacco Use Smoking Status *Q: Current Every Day Smoker Years of Tobacco use: 20 Packs/Tins Daily: 0.5 - Caffeine Use Caffeine Use: Reports: Coffee - Recreational Drug Use Recreational Drug Use: Yes Recreational Drug Type: Reports: Marijuana/Hashish Recreational Drug Use Frequency: Rarely - Living Situation & Occupation Living situation: Reports: , with Spouse Occupation: Unemployed ED ROS GENERAL - Review of Systems Review Of Systems: See Below Constitutional: Reports: No Symptoms HEENT: Reports: No Symptoms Respiratory: Reports: No Symptoms Cardiovascular: Reports: No Symptoms Endocrine: Reports: No Symptoms GI/Abdominal: Reports: Abdominal Pain, Diarrhea, Nausea, Vomiting : Reports: No Symptoms Musculoskeletal: Reports: No Symptoms ED EXAM, GI/ABD - Physical Exam Exam: See Below Exam Limited By: No Limitations General Appearance: Alert, Mild Distress Ears: Normal External Exam Nose: Normal Inspection Throat/Mouth: Normal Inspection Head: Atraumatic, Normocephalic Neck: Normal Inspection Respiratory/Chest: No Respiratory Distress, Lungs Clear, Normal Breath Sounds Cardiovascular: Regular Rate, Rhythm, No Edema, No Murmur GI/Abdominal Exam: Soft, No Organomegaly, No Mass, Tender (Moderate tenderness to the upper abdomen) Course - Vital Signs Last Recorded V/S: Last Vital Signs Temp 98.3 F 04/22/20 09:22 Pulse 80 04/22/20 09:22 Resp 18 04/22/20 09:22 BP 181/103 H 04/22/20 09:22 Pulse Ox 100 04/22/20 09:22 - Orders/Labs/Meds Orders: Active Orders 24 hr Category Date Time Status Peripheral IV Care [RC] . DIRECTED Care 04/22/20 09:39 Active Sodium Chloride 0.9% [Saline Flush] Med 04/22/20 09:39 Active 10 ml FLUSH ASDIRECTED PRN ED Antiemetic Medication Reflex [OM.PC] Stat Oth 04/22/20 09:39 Ordered Peripheral IV Insertion Adult [OM.PC] Stat Oth 04/22/20 09:39 Ordered Medication Orders Sodium Chloride (Saline Flush) 10 ml FLUSH ASDIRECTED PRN PRN Reason: Keep Vein Open Last Admin: 04/22/20 09:47 Dose: 10 ml Labs: Laboratory Tests 04/22/20 04/22/20 Range/Units 09:30 09:30 WBC 13.11 H (3.98-10.04) K/mm3 RBC 5.25 H (3.98-5.22) M/mm3 Hgb 15.1 (11.2-15.7) gm/dl Hct 45.0 H (34.1-44.9) % MCV 85.7 (79.4-94.8) fl MCH 28.8 (25.6-32.2) pg MCHC 33.6 (32.2-35.5) g/dl RDW Std Deviation 42.9 (36.4-46.3) fL Plt Count 278 (182-369) K/mm3 MPV 12.8 H (9.4-12.3) fl Neut % (Auto) 91.2 H (34.0-71.1) % Lymph % (Auto) 6.6 L (19.3-51.7) % [place] % (Auto) 1.8 L (4.7-12.5) % Eos % (Auto) 0 L (0.7-5.8) Baso % (Auto) 0.2 (0.1-1.2) % Neut # (Auto) 11.97 H (1.56-6.13) K/mm3 Lymph # (Auto) 0.87 L (1.18-3.74) K/mm3 [place]win # (Auto) 0.23 L (0.24-0.36) K/mm3 Eos # (Auto) 0.00 L (0.04-0.36) K/mm3 Baso # (Auto) 0.02 (0.01-0.08) K/mm3 Manual Slide Review Abnormal smear Sodium 138 (136-145) mEq/L Potassium 3.6 (3.5-5.1) mEq/L Chloride 100 (98-107) mEq/L Carbon Dioxide 24 (21-32) mEq/L Anion Gap 17.6 H (5-15) BUN 8 (7-18) mg/dL Creatinine 0.7 (0.55-1.02) mg/dL Est Cr Clr Drug Dosing 82.10 mL/min Estimated GFR (MDRD) > 60 (>60) mL/min BUN/Creatinine Ratio 11.4 L (14-18) Glucose 136 H (74-106) mg/dL Calcium 9.0 (8.5-10.1) mg/dL Total Bilirubin 1.0 (0.2-1.0) mg/dL AST 21 (15-37) U/L ALT 18 (14-59) U/L Alkaline Phosphatase 77 (46-116) U/L Total Protein 8.0 (6.4-8.2) g/dl Albumin 4.3 (3.4-5.0) g/dl Globulin 3.7 gm/dL Albumin/Globulin Ratio 1.2 (1-2) Lipase 171 (73-393) U/L Meds: Medications Generic Name Dose Route Start Last Admin Trade Name Sage PRN Reason Stop Dose Admin Sodium Chloride 10 ml 04/22/20 09:39 04/22/20 09:47 Saline Flush FLUSH 10 ml ASDIRECTED PRN Administration Keep Vein Open Discontinued Medications Generic Name Dose Route Start Last Admin Trade Name Freq PRN Reason Stop Dose Admin Famotidine 20 mg 04/22/20 09:40 04/22/20 09:47 Pepcid IVPUSH 04/22/20 09:41 20 mg ONETIME ONE Administration Hydromorphone HCl 1 mg 04/22/20 09:40 04/22/20 09:48 Dilaudid IVPUSH 04/22/20 09:41 1 mg ONETIME ONE Administration Hydromorphone HCl 0.5 mg 04/22/20 11:09 04/22/20 11:17 Dilaudid IVPUSH 04/22/20 11:10 0.5 mg ONETIME ONE Administration Sodium Chloride 1,000 mls @ 1,000 mls/hr 04/22/20 09:39 04/22/20 09:50 Normal Saline IV 04/22/20 10:38 1,000 mls/hr .BOLUS STA Administration Metoclopramide HCl 10 mg 04/22/20 11:09 04/22/20 11:17 Reglan IVPUSH 04/22/20 11:10 10 mg ONETIME ONE Administration Ondansetron HCl 4 mg 04/22/20 09:39 04/22/20 09:47 Zofran IVPUSH 04/22/20 09:40 4 mg ONETIME ONE Administration - Re-Assessments/Exams Free Text/Narrative Re-Assessment/Exam: 04/22/20 11:08 I ordered an IV NS 1L bolus, zofran 4mg IV, dilaudid 1mg IV and labs. Her WBC was more elevated at 13.11. Her anion gap was elevated at 17.6. Her glucose is 136. Her lipase is normal. She was sleeping and now she woke up and said her nausea and pain is coming back. I ordered more dilaudid and reglan. I will discharge her home with some carafate and something for pain. I will have her follow up with Dr Drake at our clinic and see if he can help her. Departure - Departure Time of Disposition: 12:35 Disposition: Home, Self-Care 01 Condition: Good Clinical Impression: Abdominal pain Qualifiers: Abdominal location: right lower quadrant Qualified Code(s): R10.31 - Right lower quadrant pain Diarrhea Qualifiers: Diarrhea type: infectious Qualified Code(s): A09 - Infectious gastroenteritis and colitis, unspecified - Discharge Information *PRESCRIPTION DRUG MONITORING PROGRAM REVIEWED*: No *COPY OF PRESCRIPTION DRUG MONITORING REPORT IN PATIENT ERUM: No Prescriptions: Hydrocodone/Acetaminophen [Hydrocodone-Acetamin 5-325 mg] 1 - 2 each PO Q6HR PRN #15 tablet PRN Reason: Pain Amoxicillin 500 mg PO TID #15 tab Sucralfate [Carafate] 1 gm PO TID #30 tablet Referrals: Olivia Palacios MD [Primary Care Provider] - Mane Drake MD [Physician] - 1 Week Forms: ED Department Discharge Additional Instructions: Drink plenty of fluids. Take the zofran as needed for nausea and vomiting. Take the hydrocodone as needed for pain. Keep taking your medications. Take pepcid daily for 2 weeks. You can get that over the counter. Take the carafate 3 times per day for 10 days. Take the amoxicillin 3 times per day for 5 days. Bring back a stool sample. Please return if you are worse. Start out taking clear liquids and advance your diet as tolerated. Sepsis Event Note - Evaluation Sepsis Screening Result: No Definite Risk - Focused Exam Vital Signs: Vital Signs Temp Pulse Resp BP Pulse Ox 04/22/20 09:22 98.3 F 80 18 181/103 H 100 Date Exam was Performed: 04/22/20 Time Exam was Performed: 12:33 - My Orders Last 24 Hours: My Active Orders 04/22/20 09:39 Peripheral IV Care [RC] . DIRECTED Sodium Chloride 0.9% [Saline Flush] 10 ml FLUSH ASDIRECTED PRN ED Antiemetic Medication Reflex [OM.PC] Stat Peripheral IV Insertion Adult [OM.PC] Stat - Assessment/Plan Last 24 Hours: My Active Orders 04/22/20 09:39 Peripheral IV Care [RC] . DIRECTED Sodium Chloride 0.9% [Saline Flush] 10 ml FLUSH ASDIRECTED PRN ED Antiemetic Medication Reflex [OM.PC] Stat Peripheral IV Insertion Adult [OM.PC] Stat
[2020-04-22] MEDS ORDERED: HYDROmorphone 0.5 MG/0.5 ML Syringe IVPUSH ONE (11:09)
[2020-04-22] MEDS ORDERED: Metoclopramide 10 MG/2 ML SDV IVPUSH ONE (11:09)
== END 2020-04-22 13:01 | disposition home or self-care (01) ==
LOC: JD.ED 09:12
DX: A09 Infectious gastroenteritis and colitis, unspecified (principal); E78.00 Pure hypercholesterolemia, unspecified; I10 Essential (primary) hypertension; F17.210 Nicotine dependence, cigarettes, uncomplicated; Z79.01 Long term (current) use of anticoagulants; Z79.899 Other long term (current) drug therapy; Z88.6 Allergy status to analgesic agent; Z88.8 Allergy status to other drugs, medicaments and biological substances; Z91.041 Radiographic dye allergy status; Z91.013 Allergy to seafood
CPT/HCPCS: 36415; 80053; 83690; 85025; 87045; 87046; 87328; 87329; 87338; 87493; 87899; 96361; 96374; 96375; 96376; 99284; J1170; J2405; J2765; J3490; J7030

== ENCOUNTER 2020-04-23 10:04 | Emergency (ER) | payer BC ==
--- NOTE | 2020-04-23 10:22 | EDM.PDOC ---
ED HPI GENERAL MEDICAL PROBLEM - General Chief Complaint: Gastrointestinal Problem Stated Complaint: VOMITING/DIARRHEA Time Seen by Provider: 04/23/20 10:17 Source of Information: Reports: Patient History Limitations: Reports: No Limitations - History of Present Illness INITIAL COMMENTS - FREE TEXT/NARRATIVE: 49-year-old female presents to the ED with chief complaint of recurrent intractable nausea and vomiting for greater than 2 weeks. This started after having abdominal surgery with Dr. Combs at [facility] in [place]. Apparently she had a fundoplication to repair a hiatal hernia and reflux disease. Since then she has had intractable nausea and vomiting with upper abdominal pain from vomiting primarily if she eats or drinks much it comes back up within 20 minutes to half hour. Usually undigested food or bilious material. This morning she is even bringing up her saliva. She is also developed diarrhea 2-4 times per day loose and yellow. Likely starvation stool. Associated mild abdominal cramping pain. No blood noted in the stool or emesis. Cannot keep anything down. Feels lightheaded and dizzy upon standing. At this time seen in the ED she is crying and rocking back and forth in the bed with abdominal pain. Stools have been collected for C. difficile and were reportedly negative. She has been seen ED yesterday for work-up as well. Apparently she was admitted to [facility] last weekend for evaluation of possible gastric outlet obstruction and apparently contrast media went through the stomach quite easily without any obvious abnormalities. Onset: Gradual ( is not exactly sure when she had her surgery done. He believes over 2 weeks ago) Onset Date: 04/07/20 Duration: Week(s):, Getting Worse Location: Reports: Abdomen (Intractable nausea and vomiting x2 weeks. Associated loose yellow diarrhea 2-4 times daily for abdominal pain) Quality: Reports: Ache, Sharp (Seems to be a mild colicky component to the pain but otherwise it is a deep aching discomfort), Stabbing Severity: Severe Improves with: Reports: None Worsens with: Reports: Eating Context: Reports: Other (Symptoms have started after fundoplication carried out by Dr. Combs at [facility] for hiatal hernia and GERD.). Denies: Activity , Exercise (Eating or drinking makes the pain worse and she vomits.), Lifting, Sick Contact, Trauma Associated Symptoms: Reports: Loss of Appetite, Malaise, Nausea/Vomiting, Weakness (Associated weight loss.), Other (Lightheadedness and dizziness.). Denies: Confusion, Chest Pain, Cough, cough w sputum, Diaphoresis, Fever/Chills , Headaches, Rash, Seizure, Shortness of Breath (Dr. Marcial bilious material), Syncope Treatments SENIOR GRADUATE ADVISOR: Reports: Other (see below) Middle Abdomen Pain Score (Numeric/FACES): 10 - Related Data Allergies Allergy/AdvReac Type Severity Reaction Status Date / Time cyclobenzaprine Allergy Mild Rash Verified 04/23/20 16:43 [From Flexeril] ibuprofen Allergy Mild Rash Verified 04/23/20 16:43 Iodinated Contrast Media Allergy Mild Rash Verified 04/23/20 16:43 [Iodinated Contrast- Oral and IV Dye] tizanidine [From Zanaflex] Allergy Mild Rash Verified 04/23/20 16:43 Fish Containing Products Allergy Rash Verified 04/23/20 16:43 shrimp Allergy Rash Verified 04/23/20 16:43 Home Meds: Home Meds Lisinopril 2.5 mg PO DAILY 10/14/18 [History] Omeprazole 40 mg PO DAILY 10/14/18 [History] Warfarin [Coumadin] 7.5 mg PO SUTUTHSA 11/22/18 [History] Simvastatin [Zocor] 10 mg PO BEDTIME 02/10/19 [History] Warfarin [Coumadin] 5 mg PO MOWEFR 07/31/19 [History] Ferrous Sulfate [Iron] 325 mg PO DAILY 09/14/19 [History] Oxybutynin 10 mg PO DAILY 10/31/19 [History] Amoxicillin 500 mg PO TID #15 tab 04/22/20 [Rx] Hydrocodone/Acetaminophen [Hydrocodone-Acetamin 5-325 mg] 1 - 2 each PO Q6HR PRN #15 tablet 04/22/20 [Rx] Ondansetron [Zofran ODT] 1 tab PO Q8H PRN #10 tab.dis 04/22/20 [Rx] Sucralfate [Carafate] 1 gm PO TID #30 tablet 04/22/20 [Rx] Past Medical History Cardiovascular History: Reports: Blood Clots/VTE/DVT, Heart Valve Replacement, High Cholesterol, Hypertension Other Cardiovascular History: mitral,leaking valve Respiratory History: Reports: Other (See Below) Gastrointestinal History: Reports: GERD, Hiatal Hernia Other Gastrointestinal History: e.coli, unsure if had h pilori Genitourinary History: Reports: Urinary Incontinence PORTRAIT CONSULTANT History: Reports: Musculoskeletal History: Reports: Back Pain, Chronic Neurological History: Reports: Headaches, Chronic Psychiatric History: Reports: Anxiety Hematologic History: Reports: Anticoagulation Therapy Other Hematologic History: blood clots to legs Oncologic (Cancer) History: Reports: Squamous Cell Carcinoma Dermatologic History: Reports: Melanoma - Infectious Disease History Infectious Disease History: Reports: Chicken Pox - Past Surgical History Cardiovascular Surgical History: Reports: Valve Replacement GI Surgical History: Reports: Appendectomy, Cholecystectomy, Hernia, Abdominal Female Surgical History: Reports: Oophorectomy Oncologic Surgical History: Reports: Other (See Below) Social & Family History - Family History Family Medical History: Noncontributory - Caffeine Use Caffeine Use: Reports: Coffee - Living Situation & Occupation Living situation: Reports: , with Spouse Occupation: Unemployed ED ROS GENERAL - Review of Systems Review Of Systems: See Below Constitutional: Reports: Malaise, Weakness, Fatigue, Decreased Appetite, Weight Loss. Denies: Fever, Chills HEENT: Reports: No Symptoms Respiratory: Reports: No Symptoms Cardiovascular: Reports: No Symptoms Endocrine: Reports: Fatigue GI/Abdominal: Reports: Abdominal Pain, Diarrhea (2-4 loose diarrhea stools per day mostly yellowish in color.), Nausea (Tractable nausea and vomiting of bilious material most of the time.), Vomiting : Reports: Other (Urine is dark in color) Skin: Reports: No Symptoms Neurological: Reports: Dizziness (Has some lightheadedness with standing.) Psychiatric: Reports: Anxiety, Depression Hematologic/Lymphatic: Reports: No Symptoms Immunologic: Reports: No Symptoms ED EXAM, GI/ABD - Physical Exam Exam: See Below Exam Limited By: No Limitations General Appearance: Alert, WD/WN, Moderate Distress, Thin (Is lost a good deal of weight since the last time I seen her.), Other (Tearful and crying in the exam room. Rocking back and forth on the bed in a seated position. Temperature is 36.6 with a pulse of 88. Respiratory to is 20 BP not likely accurate it is it is 211/122. Pulse ox 98% on room air) Eyes: Bilateral: Normal Appearance (No scleral icterus or blepharal pallor.) Throat/Mouth: Normal Inspection (Tongue is moist.), Normal Oropharynx, Other Head: Atraumatic, Normocephalic Neck: Normal Inspection, Supple, Non-Tender, Full Range of Motion. No: Carotid Bruit, Lymphadenopathy (L), Lymphadenopathy (R), Thyromegaly Respiratory/Chest: Lungs Clear, Normal Breath Sounds (Tachypnea due to anxiety mild hyperventilation syndrome), Respiratory Distress Cardiovascular: Normal Peripheral Pulses, Regular Rate, Rhythm, No Edema, No Gallop, No Murmur, No Rub GI/Abdominal Exam: Soft, No Organomegaly, No Mass, Pelvis Stable, Guarding ( Epigastrium), Tender (And and is mostly in the epigastrium), Abnormal Bowel Sounds (All sounds are decreased from the norm but are present.). No: Distended , Rigid, Rebound Back Exam: Normal Inspection, Full Range of Motion. No: CVA Tenderness (L), CVA Tenderness (R) Extremities: Normal Inspection, Normal Range of Motion, Non-Tender Neurological: Alert, Oriented, CN II-XII Intact, Normal Cognition Psychiatric: Anxious, Tearful, Other Skin Exam: Warm (Is to be in a good deal of discomfort.), Dry, Intact, Normal Color, No Rash EKG INTERPRETATION EKG Date: 04/23/20 Time: 14:37 Rhythm: Other (Either junctional rhythm or ectopic atrial rhythm at 75/min. The P waves are inverted in leads V2 to V6 and in leads II, III, aVF. They are normal in leads I, aVR, aVL.) Rate (Beats/Min): 75 Kelly: LAD-Left Kelly Deviation (-72 degrees of a left anterior fascicular block pattern) P-Wave: Present (Relatively short IA interval) QRS: Normal ST-T: Normal QT: Prolonged (Moderately prolonged) Course - Vital Signs Last Recorded V/S: Last Vital Signs Temp 36.9 C 04/23/20 18:15 Pulse 67 04/23/20 18:15 Resp 16 04/23/20 18:15 BP 186/95 H 04/23/20 18:15 Pulse Ox 100 04/23/20 18:15 - Orders/Labs/Meds Orders: Active Orders 24 hr Category Date Time Status Dietary Supplements [RC] BIDAC Care 04/23/20 16:42 Active EKG Documentation Completion [RC] STAT Care 04/23/20 14:34 Active Orthostatic Vital Signs [RC] ASDIRECTED Care 04/23/20 10:17 Active ABO/RH TYPE [BBK] Stat Lab 04/23/20 11:10 Results FRESH FROZEN PLASMA [BBK] Stat Lab 04/23/20 11:10 Results Dextrose 5%-0.9% NaCl [Dextrose 5%-Normal Saline] 1,000 Med 04/23/20 16:45 Active ml IV ASDIRECTED Dextrose 5%-0.9% NaCl with KCl [D5 NS with 20 mEq KCl] Med 04/23/20 16:45 Active 1,000 ml IV ASDIRECTED Transfuse Fresh Frozen Plasma [COMM] Stat Oth 04/23/20 17:48 Ordered Medication Orders Dextrose/Sodium Chloride (Dextrose 5%-Normal Saline) 1,000 mls @ 150 mls/hr IV ASDIRECTED BILL Last Admin: 04/23/20 16:53 Dose: 150 mls/hr Potassium Chloride/Dextrose/Sod Cl (D5 Ns With 20 Meq Kcl) 1,000 mls @ 125 mls/ hr IV ASDIRECTED [facility] Labs: Laboratory Tests 04/23/20 04/23/20 04/23/20 Range/Units 11:10 11:10 11:10 WBC 14.13 H (3.98-10.04) K/mm3 RBC 5.39 H (3.98-5.22) M/mm3 Hgb 15.3 (11.2-15.7) gm/dl Hct 46.6 H (34.1-44.9) % MCV 86.5 (79.4-94.8) fl MCH 28.4 (25.6-32.2) pg MCHC 32.8 (32.2-35.5) g/dl RDW Std Deviation 45.1 (36.4-46.3) fL Plt Count 285 (182-369) K/mm3 MPV 12.8 H (9.4-12.3) fl Neut % (Auto) 81.2 H (34.0-71.1) % Lymph % (Auto) 12.0 L (19.3-51.7) % [place] % (Auto) 5.4 (4.7-12.5) % Eos % (Auto) 0.8 (0.7-5.8) Baso % (Auto) 0.5 (0.1-1.2) % Neut # (Auto) 11.48 H (1.56-6.13) K/mm3 Lymph # (Auto) 1.69 (1.18-3.74) K/mm3 [place] # (Auto) 0.76 H (0.24-0.36) K/mm3 Eos # (Auto) 0.11 (0.04-0.36) K/mm3 Baso # (Auto) 0.07 (0.01-0.08) K/mm3 PT 43.1 H D (9.7-12.0) SECONDS INR 4.29 Sodium 143 (136-145) mEq/L Potassium 3.2 L (3.5-5.1) mEq/L Chloride 107 (98-107) mEq/L Carbon Dioxide 22 (21-32) mEq/L Anion Gap 17.2 H (5-15) BUN 8 (7-18) mg/dL Creatinine 0.9 (0.55-1.02) mg/dL Est Cr Clr Drug Dosing 63.86 mL/min Estimated GFR (MDRD) > 60 (>60) mL/min BUN/Creatinine Ratio 8.9 L (14-18) Glucose 122 H (74-106) mg/dL Calcium 9.8 (8.5-10.1) mg/dL Magnesium 1.9 (1.8-2.4) mg/dl Total Bilirubin 1.0 (0.2-1.0) mg/dL AST 26 (15-37) U/L ALT 19 (14-59) U/L Alkaline Phosphatase 75 (46-116) U/L C-Reactive Protein 0.4 (<1.0) mg/dL Total Protein 7.7 (6.4-8.2) g/dl Albumin 4.2 (3.4-5.0) g/dl Globulin 3.5 gm/dL Albumin/Globulin Ratio 1.2 (1-2) Lipase 139 (73-393) U/L Urine Opiates Screen (BCNOLP=384) Ur Buprenorphine Scrn (CUTOFF=10) Ur Oxycodone Screen (RTW3RW=980) Urine Methadone Screen (ABEKBM=525) Ur Propoxyphene Screen (FMCUHR=019) Ur Barbiturates Screen (STXFHM=600) Ur Tricyclics Screen (BHDMYP=940) Ur Phencyclidine Scrn (CUTOFF=25) Ur Amphetamine Screen (FFWTXY=141) U Methamphetamines Scrn (IQTSZT=564) U Benzodiazepines Scrn (TGYXDB=685) U Cocaine Metab Screen (QJYTQQ=803) U Marijuana (THC) Screen (CUTOFF=50) Blood Type 04/23/20 04/23/20 Range/Units 11:10 13:30 WBC (3.98-10.04) K/mm3 RBC (3.98-5.22) M/mm3 Hgb (11.2-15.7) gm/dl Hct (34.1-44.9) % MCV (79.4-94.8) fl MCH (25.6-32.2) pg MCHC (32.2-35.5) g/dl RDW Std Deviation (36.4-46.3) fL Plt Count (182-369) K/mm3 MPV (9.4-12.3) fl Neut % (Auto) (34.0-71.1) % Lymph % (Auto) (19.3-51.7) % [place] % (Auto) (4.7-12.5) % Eos % (Auto) (0.7-5.8) Baso % (Auto) (0.1-1.2) % Neut # (Auto) (1.56-6.13) K/mm3 Lymph # (Auto) (1.18-3.74) K/mm3 [place] # (Auto) (0.24-0.36) K/mm3 Eos # (Auto) (0.04-0.36) K/mm3 Baso # (Auto) (0.01-0.08) K/mm3 PT (9.7-12.0) SECONDS INR Sodium (136-145) mEq/L Potassium (3.5-5.1) mEq/L Chloride (98-107) mEq/L Carbon Dioxide (21-32) mEq/L Anion Gap (5-15) BUN (7-18) mg/dL Creatinine (0.55-1.02) mg/dL Est Cr Clr Drug Dosing mL/min Estimated GFR (MDRD) (>60) mL/min BUN/Creatinine Ratio (14-18) Glucose (74-106) mg/dL Calcium (8.5-10.1) mg/dL Magnesium (1.8-2.4) mg/dl Total Bilirubin (0.2-1.0) mg/dL AST (15-37) U/L ALT (14-59) U/L Alkaline Phosphatase (46-116) U/L C-Reactive Protein (<1.0) mg/dL Total Protein (6.4-8.2) g/dl Albumin (3.4-5.0) g/dl Globulin gm/dL Albumin/Globulin Ratio (1-2) Lipase (73-393) U/L Urine Opiates Screen Negative (XXMDJL=372) Ur Buprenorphine Scrn Negative (CUTOFF=10) Ur Oxycodone Screen Negative (LMT3ZZ=180) Urine Methadone Screen Negative (NEGYQK=737) Ur Propoxyphene Screen Negative (KTPMMT=980) Ur Barbiturates Screen Negative (HEWBCE=131) Ur Tricyclics Screen Negative (SVUNBD=065) Ur Phencyclidine Scrn Negative (CUTOFF=25) Ur Amphetamine Screen Negative (AOKLAH=097) U Methamphetamines Scrn Negative (GLKCXP=641) U Benzodiazepines Scrn Negative (VPZFTS=423) U Cocaine Metab Screen Negative (DPYSRW=338) U Marijuana (THC) Screen Presumptive positive H (CUTOFF=50) Blood Type AB NEGATIVE Meds: Medications Generic Name Dose Route Start Last Admin Trade Name Freq PRN Reason Stop Dose Admin Dextrose/Sodium Chloride 1,000 mls @ 150 mls/hr 04/23/20 16:45 04/23/20 16:53 Dextrose 5%-Normal Saline IV 150 mls/hr ASDIRECTED BILL Administration Potassium Chloride/Dextrose/Sod Cl 1,000 mls @ 125 mls/hr 04/23/20 16:45 D5 Ns With 20 Meq Kcl IV ASDIRECTED BILL Discontinued Medications Generic Name Dose Route Start Last Admin Trade Name Freq PRN Reason Stop Dose Admin Dexamethasone 8 mg 04/23/20 14:28 04/23/20 14:40 Dexamethasone IVPUSH 04/23/20 14:29 8 mg ONETIME ONE Administration Dicyclomine HCl 20 mg 04/23/20 16:36 04/23/20 16:48 Bentyl PO 04/23/20 16:37 20 mg ONETIME ONE Administration Diphenhydramine HCl 12.5 mg 04/23/20 10:30 04/23/20 10:51 Benadryl IVPUSH 04/23/20 10:31 12.5 mg ONETIME ONE Administration Diphenhydramine HCl 12.5 mg 04/23/20 11:51 04/23/20 12:01 Benadryl IVPUSH 04/23/20 11:52 12.5 mg ONETIME ONE Administration Diphenhydramine HCl 12.5 mg 04/23/20 16:37 04/23/20 16:51 Benadryl IVPUSH 04/23/20 16:38 12.5 mg ONETIME ONE Administration Fentanyl 25 mcg 04/23/20 16:42 04/23/20 16:56 Sublimaze IVPUSH 04/23/20 16:43 25 mcg ONETIME ONE Administration Haloperidol Lactate 2.5 mg 04/23/20 16:36 04/23/20 16:49 Haldol IVPUSH 04/23/20 16:37 2.5 mg ONETIME ONE Administration Hydromorphone HCl 0.5 mg 04/23/20 10:30 04/23/20 10:52 Dilaudid IVPUSH 04/23/20 10:31 0.5 mg ONETIME ONE Administration Hydromorphone HCl 0.5 mg 04/23/20 12:19 04/23/20 12:25 Dilaudid IVPUSH 04/23/20 12:20 0.5 mg ONETIME ONE Administration Dextrose/Lactated Ringer's 1,000 mls @ 999 mls/hr 04/23/20 10:30 04/23/20 10: 51 Dextrose 5%-Lactated Ringers IV 999 mls/hr ASDIRECTED BILL Administration Promethazine HCl 25 mg/ Sodium 51 mls @ 100 mls/hr 04/23/20 11:51 04/23/20 12 :01 Chloride IV 04/23/20 12:21 100 mls/hr ONETIME ONE Administration Potassium Chloride 10 meq/ 100 mls @ 100 mls/hr 04/23/20 13:06 04/23/20 13:30 Premix IV 04/23/20 14:05 100 mls/hr ONETIME ONE Administration Phytonadione 5 mg/ Sodium 50.5 mls @ 100 mls/hr 04/23/20 17:49 04/23/20 18:26 Chloride IV 04/23/20 18:19 100 mls/hr NOW ONE Administration Lorazepam 1 mg 04/23/20 14:28 04/23/20 14:40 Ativan IVPUSH 04/23/20 14:29 1 mg ONETIME ONE Administration Metoclopramide HCl 7.5 mg 04/23/20 10:30 04/23/20 10:51 Reglan IVPUSH 04/23/20 10:31 7.5 mg ONETIME ONE Administration - Radiology Interpretation Free Text/Narrative:: 49-year-old female presents to the ED with intractable nausea and vomiting and development of diarrhea since having fundoplication procedure performed greater than 2 weeks ago. Procedure was performed for gastroesophageal reflux disease due to hiatal hernia. Dr. Combs surgeon at [facility] performed the procedure. Patient continues to lose weight as she is unable to eat or drink much as she vomits within 20 minutes. Stools are yellow and anywhere from 2-4 times daily. Stools were checked for C. difficile and returned as negative. Diarrhea stools are likely due to starvation stools. Question whether she has some form of vagus nerve inflammation or entrapment from the surgery. Plan she is volume depleted. D5 Ringer's lactate at open. Given Reglan 7.5 mg IV with Benadryl 12.5 mg IV as she is sensitive to phenothiazines. Dilaudid 0.5 mg IV for pain relief. Routine labs including a lipase and magnesium. 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 Differential is 81.2% neutrophils. Hemoglobin is 15.3 with hematocrit of 46.6. Platelet counts 285,000. MCV is normal. PT is 43.1 which is high and her INR is supratherapeutic at 4.29. Sodium 143 potassium slightly low at 3.2. Chloride 107 with a bicarb of 22. Anion gap is elevated at 17.2. BUN is 8 with a creatinine of 0.9. GFR is greater than 60. Glucose is 122. Calcium is 9.8 with a magnesium of 1.9. Liver function is normal C-reactive protein 0.4 total protein 7.7 with albumin fraction of 4.2. Lipase is 139 normal. KUB reveals no free air. Stomach is easily visible in the left upper quadrant to the left hemidiaphragm. [place] in the right upper quadrant from previous cholecystectomy. There is still a fair amount of barium within the colon from recent CT scan last weekend with no signs of biliary tree obstruction. The transverse colon and descending colon are fairly easily visible with contrast down to the rectal vault. No bowel obstruction 04/23/20 12:19 Patient is requesting further analgesia. I will give her repeat Dilaudid 0.5 mg IV. At this time my plan would be to send her back to [facility] in [place]. Not sure if there is some form of vagal nerve entrapment or compression that is causing her current symptomatology. There is nothing I can do for her here in [place]. 04/23/20 13:20: I spoke through the 1 call service at [facility] in [place] and she was able to speak with Dr. Combs the surgeon who performed her surgery. Last weekend she was worked up thoroughly and he feels that there is no abnormalities of her stomach related to the surgery that was performed. He states that she got mad at him for not discharging her with narcotic pain medications. She then threatened suicide and a psychiatric consultation was obtained the following day and she was discharged. Essentially she left AGAINST MEDICAL ADVICE. Therefore they were less than keen to take her back. 1 call nurse also spoke with list on-call and he too felt that the was nothing that could be done there that could not be done here in terms of IV hydration and control of nausea and vomiting. 04/23/20 14:30 finally able to get back in the room and speak with the and the patient although the patient does not speak very good American. Advised that I could not get her accepted at [facility] in [place]. She still feeling very uncomfortable. I will try Ativan 1 mg IV to help sedate her and try and not use any further narcotics. I am also going to give her a dose of dexamethasone 8 mg IV as this may help alleviate inflammation of the vagus nerve if it was irritated during the surgery which is causing repetitive intractable nausea and vomiting. Her pain is simply from vomiting so much as the pain is mostly in the epigastrium. Will speak with our hospitalist Dr. Madrigal and see what he has to say about potential admission to our hospital. 04/23/20 16:42 once again I have gone round and round with hospitalist at [facility] in [place] and he does not feel that he is anything to offer her that we cannot offer here in terms of nausea vomiting management. He was concerned that her urine was positive for marijuana. Staying the and the patient she has never smoked marijuana. Friends did give them some cannabinoid oils to see if it would help with her nausea a couple weeks back and it must of been laced with a small amount of THC. He does not use marijuana and any regular basis. Therefore there is no evidence of cannabis hyperemesis syndrome. She still got a headache mildly nauseated with epigastric discomfort. I am going to give her Bentyl 20 mg per oral for the abdominal discomfort and to try Haldol 2.5 mg IV for nausea and headache relief. Fentanyl 25 mcg IV for immediate headache relief. I did discuss the case with Dr. Madrigal and he is willing to admit the patient for observation status overnight for IV fluids and rehydration and nausea relief. May require high dose Zofran 8 mg every 4-6 hours for nausea relief. Hold is to try not to use narcotics for pain relief however her hands are tied in terms that she is hyper anticoagulated with supratherapeutic INR at 4.24 and also has an allergy to ibuprofen. The discussion I had with the patient and his is that if she is not improved overnight still feeling nauseated with epigastric pain they will travel to [facility] tomorrow morning. Patient is very fearful of going home and continue to be ill like she has been. When she settles down a bit going to see if she can tolerate anything oral. She is willing to try a little bit of oral protein such as strawberry or chocolate Ensure. 04/23/20 17:55: He of the head has been completed without contrast. Interestingly it shows mild increased density compared with blood seen within several sulci over the right parietal convexity. Etiology for this blood is not appreciated on this exam. No other intracranial hemorrhage is seen. No midline shift or mass-effect is seen. Ventricles along with basal cisterns and sulci over the convexities are within normal limits for the patient's age. Bone windows show no abnormalities. The etiology of this subarachnoid hemorrhage is not clear there does not appear to be a localization that would be apparent with an aneurysm. It is likely from increased intracranial pressure generated by intractable nausea and vomiting. 04/23/20 18:05: I have spoken to the 1 call nurse at [facility] in [place] and to Dr. Feng -- neurosurgeon and he agrees the patient needs to be admitted. At this time it does not appear she will require any neurosurgical intervention. He does advise a course reversing the elevated INR which MRI already done with 5 mg of vitamin K IV and she will receive a unit of fresh frozen plasma in route to [place]. We looking for transportation as soon as possible. 04/23/20 18:[address] Ramos with a hospitalist on-call and she is excepted care. 04/23/20 19:04 she will be leaving shortly for [facility] in [place]. 1 unit of fresh frozen plasma is now up and running. Departure - Departure Time of Disposition: 19:04 Disposition: DC/Tfer to Acute Hospital 02 Condition: Fair Clinical Impression: Intractable nausea and vomiting, Epigastric abdominal pain, Subarachnoid hemorrhage, Supratherapeutic INR Diarrhea Qualifiers: Diarrhea type: infectious Qualified Code(s): A09 - Infectious gastroenteritis and colitis, unspecified Headache Qualifiers: Headache type: unspecified Headache chronicity pattern: chronic headache Intractability: not intractable Qualified Code(s): R51 - Headache - Discharge Information *PRESCRIPTION DRUG MONITORING PROGRAM REVIEWED*: Not Applicable *COPY OF PRESCRIPTION DRUG MONITORING REPORT IN PATIENT ERUM: Not Applicable Referrals: Olivia Palacios MD [Primary Care Provider] - Forms: ED Department Discharge Additional Instructions: Patient will be transferred to [facility] in [place] due to discovery of a occult subarachnoid hemorrhage which appears to be fairly acute over the right parietal convexities. There is no obvious source for this bleeding to suggest a ruptured aneurysm. It appears that her intractable nausea and vomiting with increased intracranial pressure and elevated INR has precipitated spontaneous subarachnoid hemorrhage. She will be primarily admitted by hospitalist with consultation with Dr. Feng from the department of neurosurgery Sepsis Event Note - Focused Exam Vital Signs: Vital Signs Temp Pulse Resp BP Pulse Ox 04/23/20 18:15 36.9 C 67 16 186/95 H 100 04/23/20 10:24 36.6 C 88 20 211/122 H 98 Date Exam was Performed: 04/23/20 Time Exam was Performed: 19:04 - My Orders Last 24 Hours: My Active Orders 04/23/20 10:17 Orthostatic Vital Signs [RC] ASDIRECTED 04/23/20 11:10 ABO/RH TYPE [BBK] Stat FRESH FROZEN PLASMA [BBK] Stat 04/23/20 14:34 EKG Documentation Completion [RC] STAT 04/23/20 16:42 Dietary Supplements [RC] BIDAC 04/23/20 16:45 Dextrose 5%-0.9% NaCl [Dextrose 5%-Normal Saline] 1,000 ml IV ASDIRECTED Dextrose 5%-0.9% NaCl with KCl [D5 NS with 20 mEq KCl] 1,000 ml IV ASDIRECTED 04/23/20 17:48 Transfuse Fresh Frozen Plasma [COMM] Stat - Assessment/Plan Last 24 Hours: My Active Orders 04/23/20 10:17 Orthostatic Vital Signs [RC] ASDIRECTED 04/23/20 11:10 ABO/RH TYPE [BBK] Stat FRESH FROZEN PLASMA [BBK] Stat 04/23/20 14:34 EKG Documentation Completion [RC] STAT 04/23/20 16:42 Dietary Supplements [RC] BIDAC 04/23/20 16:45 Dextrose 5%-0.9% NaCl [Dextrose 5%-Normal Saline] 1,000 ml IV ASDIRECTED Dextrose 5%-0.9% NaCl with KCl [D5 NS with 20 mEq KCl] 1,000 ml IV ASDIRECTED 04/23/20 17:48 Transfuse Fresh Frozen Plasma [COMM] Stat
[2020-04-23] MEDS ORDERED: diphenhydrAMINE 50 MG/ML SDV IVPUSH ONE ×3 (10:30→16:37)
[2020-04-23] MEDS ORDERED: HYDROmorphone 0.5 MG/0.5 ML Syringe IVPUSH ONE ×2 (10:30→12:19)
[2020-04-23] MEDS ORDERED: Metoclopramide 10 MG/2 ML SDV IVPUSH ONE (10:30)
[2020-04-23] MEDS ORDERED: Dextrose 5%-Lactated Ringers 1,000 ML IV SCH (10:30)
[2020-04-23] MEDS ORDERED: Promethazine 25 MG in Sodium Chloride 0.9% 50 ML IV ONE (11:51)
--- NOTE | 2020-04-23 12:34 | CR ---
Abdomen: Supine view of the abdomen was obtained. Comparison: Prior abdominal x-ray of 11/29/18. Contrast is seen within the colon from recent CT exam. Surgical clips are seen from prior cholecystectomy. Bowel gas pattern is normal. Bony structures are unremarkable. Impression: 1. Nothing acute seen on supine abdominal x-ray. Diagnostic code #2 This report was dictated in MDT
[2020-04-23] MEDS ORDERED: Potassium Chloride 10 MEQ in Premix Bag 1 BAG IV ONE (13:06)
[2020-04-23] MEDS ORDERED: LORazepam 2 MG/ML SDV IVPUSH ONE (14:28)
[2020-04-23] MEDS ORDERED: Dexamethasone 4 MG/ML SDV IVPUSH ONE (14:28)
[2020-04-23] MEDS ORDERED: Dicyclomine 10 MG Cap PO ONE (16:36)
[2020-04-23] MEDS ORDERED: Haloperidol Lactate 5 MG/ML SDV IVPUSH ONE (16:36)
[2020-04-23] MEDS ORDERED: fentaNYL 100 MCG/2 ML SDV IVPUSH ONE (16:42)
[2020-04-23] MEDS ORDERED: Dextrose 5%-0.9% NaCl 1,000 ML IV SCH (16:45)
[2020-04-23] MEDS ORDERED: Dextrose 5%-0.9% NaCl with KCl 1,000 ML IV SCH (16:45)
--- NOTE | 2020-04-23 17:34 | CT ---
Head CT Technique: Multiple axial sections through the brain were obtained. Intravenous contrast was not utilized. Comparison: Prior head CT study of 10/14/18. Findings: Mild increased density compatible with blood is seen within several sulci over the right parietal convexity. Etiology for this blood is not appreciated on this exam. No other intracranial hemorrhage is seen. No midline shift or mass-effect is seen. Ventricles along with basal cisterns and sulci over the convexities are within normal limits for the patient's age. Bone window settings were reviewed. No acute calvarial finding is seen. Visualized paranasal sinuses and mastoid sinuses show nothing acute. Impression: 1. Small amount of subarachnoid blood within several sulci within the right parietal convexity. Etiology for this blood is not appreciated on this exam. 2. No additional abnormality is appreciated on noncontrast head CT exam. Diagnostic code #5 This report was dictated in MDT
[2020-04-23] MEDS ORDERED: Phytonadione 5 MG in Sodium Chloride 0.9% 50 ML IV ONE (17:49)
[2020-04-23] MEDS ORDERED: Sodium Chloride 0.9% 100 ML ONE (19:03)
== END 2020-04-23 19:30 ==
LOC: JD.ED 10:04
DX: I60.9 Nontraumatic subarachnoid hemorrhage, unspecified (principal); R11.2 Nausea with vomiting, unspecified; A09 Infectious gastroenteritis and colitis, unspecified; R10.13 Epigastric pain; I10 Essential (primary) hypertension; K21.9 Gastro-esophageal reflux disease without esophagitis; E78.00 Pure hypercholesterolemia, unspecified; Z88.8 Allergy status to other drugs, medicaments and biological substances; Z88.6 Allergy status to analgesic agent; Z91.041 Radiographic dye allergy status; Z91.013 Allergy to seafood; Z79.01 Long term (current) use of anticoagulants; Z79.899 Other long term (current) drug therapy
CPT/HCPCS: 36415; 36430; 70450; 74018; 80053; 80306; 83690; 83735; 85025; 85610; 86140; 86900; 86901; 93005; 96361; 96365; 96367; 96375; 96376; 99285; A9270; J1100; J1170; J1200; J1630; J2060; J2550; J2765; J3010; J3430; J3480; J7042; J7050; J7121; P9017; 93010; 99284

== ENCOUNTER 2021-04-12 18:14 | Emergency (ER) | payer BC ==
[2021-04-12] MEDS ORDERED: Haloperidol Lactate 5 MG/ML SDV IM ONE (19:19)
[2021-04-12] MEDS ORDERED: Sodium Chloride 0.9% 1,000 ML IV ONE (19:19)
[2021-04-12] MEDS ORDERED: Benztropine 1 MG Tab PO STA (19:19)
--- NOTE | 2021-04-12 19:26 | EDM.PDOC ---
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 Vega is a pleasant 50-year-old woman who now presents the ED stating that she has had a headache, facial pain, and eye pain, along with nausea and lightheadedness with movement, since this past 04/08/2021. She describes the headache as a pressure-like sensation, and states that it waxes and wanes, depending on whether she is moving or not. She denies visual changes, but states that she has been feeling generally weak since Sunday. She denies tingling or numbness, anywhere. The patient reports that she gets headaches from time to time, but this is more severe than usual. She states that she has been sleeping a lot. She reports that she took 2 tablets of acetaminophen yesterday morning, otherwise, she has not taken any treatment for this headache. Here in the ED, the patient's initial BP is found to be slightly elevated at 145/80, otherwise, she is hemodynamically stable, afebrile, saturating 98% on room air. She appears to be relatively comfortable on the gurney, initially watching television. The patient reports that she had cold-like symptoms, including a cough, about a week ago. Otherwise, the patient denies having a recent fever, chills, sore throat, ear pain, nasal or sinus congestion, dyspnea, chest pain, palpitations, vomiting, constipation, diarrhea, abdominal pain, urinary symptoms, recent weight gain or weight loss, recent bloody bowel movements or black bowel movements, recent joint aches, or rashes. I reviewed the PMHx/PSHx/SocHx, which was reviewed with the patient by the RN. The patient's PCP is Olivia Palacios NP. 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 She reports that she has received 2 COVID vaccinations. Left Frontal Headache Pain Score (Numeric/FACES): 8 - Related Data Allergies Allergy/AdvReac Type Severity Reaction Status Date / Time cyclobenzaprine Allergy Severe Rash Verified 04/12/21 18:45 [From Flexeril] Fish Containing Products Allergy Severe Rash Verified 04/12/21 18:45 ibuprofen Allergy Severe Rash Verified 04/12/21 18:45 Iodinated Contrast Media Allergy Severe Rash Verified 04/12/21 18:45 [Iodinated Contrast- Oral and IV Dye] shrimp Allergy Severe Rash Verified 04/12/21 18:45 tizanidine [From Zanaflex] Allergy Severe Rash Verified 04/12/21 18:45 Home Meds: Home Meds Warfarin [Coumadin] 7.5 mg PO MO 11/22/18 [History] Warfarin [Coumadin] 5 mg PO ASDIRECTED 07/31/19 [History] Omeprazole 40 mg PO DAILY 04/12/21 [History] Rizatriptan Benzoate [Rizatriptan] 1 tab PO ASDIRECTED PRN #3 tab.rapdis 04/12/21 [Rx] Past Medical History Cardiovascular History: Reports: Blood Clots/VTE/DVT, Heart Valve Replacement, High Cholesterol, Hypertension Other Cardiovascular History: mitral,leaking valve Respiratory History: Reports: Other (See Below) Gastrointestinal History: Reports: GERD, Hiatal Hernia Other Gastrointestinal History: e.coli, unsure if had h pilori Genitourinary History: Reports: Urinary Incontinence 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: Musculoskeletal History: Reports: Back Pain, Chronic Neurological History: Reports: Headaches, Chronic Psychiatric History: Reports: Anxiety Hematologic History: Reports: Anticoagulation Therapy Other Hematologic History: blood clots to legs Oncologic (Cancer) History: Reports: Squamous Cell Carcinoma Dermatologic History: Reports: Melanoma - Infectious Disease History Infectious Disease History: Reports: Chicken Pox - Past Surgical History Cardiovascular Surgical History: Reports: Valve Replacement Respiratory Surgical History: Reports: Thoracentesis GI Surgical History: Reports: Appendectomy, Cholecystectomy, Hernia, Abdominal Other GI Surgeries/Procedures: hiatial Female Surgical History: Reports: Oophorectomy Oncologic Surgical History: Reports: Other (See Below) Social & Family History - Family History Family Medical History: No Pertinent Family History - Tobacco Use Tobacco Use Status *Q: Current Every Day Tobacco User Years of Tobacco use: 34 Packs/Tins Daily: 0.5 Packs/Tins Daily Comment: Down from 1 ppd - Caffeine Use Caffeine Use: Reports: Coffee - Alcohol Use Alcohol Use History: No - Recreational Drug Use Recreational Drug Use: Yes Drug Use in Last 12 Months: Yes Recreational Drug Type: Reports: Marijuana/Hashish (smokes on occaasion) - Living Situation & Occupation Living situation: Reports: , with Spouse Occupation: Unemployed ED ROS GENERAL - Review of Systems Review Of Systems: Comprehensive ROS is negative, except as noted in HPI. - Physical Exam Exam: See Below Exam Limited By: No Limitations General Appearance: Alert, WD/WN, No Apparent Distress Eye Exam: Bilateral Eye: EOMI, Normal Inspection, PERRL Ears: Normal External Exam, Normal Canal, Hearing Grossly Normal, Normal TMs Nose: Normal Inspection, Normal Mucosa, No Blood Throat/Mouth: Normal Inspection, Normal Lips, Normal Teeth, Normal Gums, Normal Oropharynx, Normal Voice, No Airway Compromise Head Exam: Atraumatic, Normocephalic Neck: Normal Inspection, Supple, Non-Tender, Full Range of Motion. No: Lymphadenopathy (L), Lymphadenopathy (R) Respiratory/Chest: No Respiratory Distress, Lungs Clear, Normal Breath Sounds, No Accessory Muscle Use Cardiovascular: Normal Peripheral Pulses, Regular Rate, Rhythm, No Edema, No Gallop, No JVD, No Murmur, No Rub GI/Abdominal: Normal Bowel Sounds, Soft, Non-Tender, No Organomegaly, No Distention, No Abnormal Bruit, No Mass Neuro Exam (Abbreviated): Alert, Oriented, CN II-XII Intact, Normal Cognition, Sensory/Motor Deficit (patient reports decreased sensation to her left cheek) Back Exam: Normal Inspection, Full Range of Motion, NT Extremities: Normal Inspection, Normal Range of Motion, No Pedal Edema, Normal Capillary Refill Psychiatric: Normal Affect Skin Exam: Warm, Dry, Intact, Normal Color, No Rash Course - Vital Signs Last Recorded V/S: Last Vital Signs Temp 36.0 C L 04/12/21 18:38 Pulse 69 04/12/21 18:38 Resp 18 04/12/21 18:38 BP 145/80 H 04/12/21 18:38 Pulse Ox 98 04/12/21 18:38 Orthostatic Blood Pressure [ 168/109 Standing] Orthostatic Blood Pressure [ 163/105 Sitting] Orthostatic Blood Pressure [ 159/97 Supine] - Orders/Labs/Meds Orders: Active Orders 24 hr Category Date Time Status Orthostatic Vital Signs [RC] STAT Care 04/12/21 19:18 Active Labs: Laboratory Tests 04/12/21 04/12/21 04/12/21 Range/Units 19:25 19:25 19:25 WBC 8.66 (3.98-10.04) K/mm3 RBC 4.93 (3.98-5.22) M/mm3 Hgb 14.4 (11.2-15.7) gm/dl Hct 44.1 (34.1-44.9) % MCV 89.5 D (79.4-94.8) fl MCH 29.2 (25.6-32.2) pg MCHC 32.7 (32.2-35.5) g/dl RDW Std Deviation 44.8 (36.4-46.3) fL Plt Count 236 (182-369) K/mm3 MPV 11.6 (9.4-12.3) fl Neutrophils % (Manual) 71 H (40-60) % Band Neutrophils % 0 (0-10) % Lymphocytes % (Manual) 24 (20-40) % Atypical Lymphs % 0 % Monocytes % (Manual) 4 (2-10) % Eosinophils % (Manual) 1 (0.7-5.8) % Basophils % (Manual) 0 L (0.1-1.2) Platelet Estimate Adequate RBC Morph Comment Normal PT 27.2 H (9.7-12.0) SECONDS INR 2.59 Sodium 143 (136-145) mEq/L Potassium 4.0 (3.5-5.1) mEq/L Chloride 106 (98-107) mEq/L Carbon Dioxide 26 (21-32) mEq/L Anion Gap 15.0 (5-15) BUN 10 (7-18) mg/dL Creatinine 0.9 (0.55-1.02) mg/dL Est Cr Clr Drug Dosing 63.14 mL/min Estimated GFR (MDRD) > 60 (>60) mL/min BUN/Creatinine Ratio 11.1 L (14-18) Glucose 110 H (70-99) mg/dL Calcium 8.5 (8.5-10.1) mg/dL Magnesium 2.1 (1.8-2.4) mg/dL Total Bilirubin 0.6 (0.2-1.0) mg/dL AST 21 (15-37) U/L ALT 27 (14-59) U/L Alkaline Phosphatase 85 (46-116) U/L Total Protein 7.0 (6.4-8.2) g/dl Albumin 3.6 (3.4-5.0) g/dl Globulin 3.4 gm/dL Albumin/Globulin Ratio 1.1 (1-2) SARS-CoV-2 RNA (MIGUE) (NEGATIVE) 04/12/21 Range/Units 19:50 WBC (3.98-10.04) K/mm3 RBC (3.98-5.22) M/mm3 Hgb (11.2-15.7) gm/dl Hct (34.1-44.9) % MCV (79.4-94.8) fl MCH (25.6-32.2) pg MCHC (32.2-35.5) g/dl RDW Std Deviation (36.4-46.3) fL Plt Count (182-369) K/mm3 MPV (9.4-12.3) fl Neutrophils % (Manual) (40-60) % Band Neutrophils % (0-10) % Lymphocytes % (Manual) (20-40) % Atypical Lymphs % % Monocytes % (Manual) (2-10) % Eosinophils % (Manual) (0.7-5.8) % Basophils % (Manual) (0.1-1.2) Platelet Estimate RBC Morph Comment PT (9.7-12.0) SECONDS INR Sodium (136-145) mEq/L Potassium (3.5-5.1) mEq/L Chloride (98-107) mEq/L Carbon Dioxide (21-32) mEq/L Anion Gap (5-15) BUN (7-18) mg/dL Creatinine (0.55-1.02) mg/dL Est Cr Clr Drug Dosing mL/min Estimated GFR (MDRD) (>60) mL/min BUN/Creatinine Ratio (14-18) Glucose (70-99) mg/dL Calcium (8.5-10.1) mg/dL Magnesium (1.8-2.4) mg/dL Total Bilirubin (0.2-1.0) mg/dL AST (15-37) U/L ALT (14-59) U/L Alkaline Phosphatase (46-116) U/L Total Protein (6.4-8.2) g/dl Albumin (3.4-5.0) g/dl Globulin gm/dL Albumin/Globulin Ratio (1-2) SARS-CoV-2 RNA (MIGUE) Negative (NEGATIVE) Meds: Medications Discontinued Medications Generic Name Dose Route Start Last Admin Trade Name Sage PRN Reason Stop Dose Admin Benztropine Mesylate 1 mg 04/12/21 19:19 04/12/21 19:46 Benztropine 1 Mg Tab PO 04/12/21 19:20 1 mg ONETIME STA Administration Haloperidol Lactate 5 mg 04/12/21 19:19 04/12/21 19:45 Haloperidol Lactate 5 Mg/Ml Sdv IM 04/12/21 19:20 5 mg ONETIME ONE Administration Sodium Chloride 1,000 mls @ 999 mls/hr 04/12/21 19:19 04/12/21 19:45 Normal Saline IV 04/12/21 20:19 999 mls/hr ONETIME ONE Administration - Re-Assessments/Exams Free Text/Narrative Re-Assessment/Exam: 04/12/21 19:20 As above, the patient has had a headache, a pressure sensation involving her entire head, along with some nausea and lightheadedness when she moves, since this past Sunday. No visual changes, but she reports generalized body weakness, and, on examination, she reported some decrease sensation to the left side of her face. The remainder of her neurologic examination was unremarkable. Because the patient is on Coumadin and reports that she has previously had an intracranial bleed that began after she vomited, I have ordered a CT of the head without contrast, as she reports that she was coughing last week. Because she reports feeling lightheaded, I have ordered orthostatics, along with several blood tests, including an INR. In the meantime, I will treat the patient for the possibility of a migraine, with IM Haldol, oral Cogentin, and IV fluid. 04/12/21 20:04 The patient is not orthostatic. 04/12/21 20:17 The patient's CBC is unremarkable. Her CMP is remarkable for mild hyperglycemia of 110, and is otherwise unremarkable. Her Magnesium is within normal limits at 2.1. Her INR is therapeutic at 2.59, with a PT of 27.2 04/12/21 20:48 CT of the head without contrast is read by Dr. Plunkett as: 1. Nothing acute is appreciated on noncontrast head CT exam. The patient's swab for the SARS-CoV-2 virus returned negative. 04/12/21 20:53 Test results discussed with the patient. She states that her headache is down from a "8" to a "4". As above, today's work-up is entirely unremarkable. The improvement in her headache indicates that her headache was migrainous in etiology. 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 Departure - Departure Time of Disposition: 20:54 Disposition: Home, Self-Care 01 Condition: Good Clinical Impression: Migraine headache - Discharge Information *PRESCRIPTION DRUG MONITORING PROGRAM REVIEWED*: Not Applicable *COPY OF PRESCRIPTION DRUG MONITORING REPORT IN PATIENT ERUM: Not Applicable Referrals: Olivia Palacios NP [Primary Care Provider] - Forms: ED Department Discharge Additional Instructions: You were seen in the emergency room for a headache with nausea and lightheadedness since Sunday. Work-up in the ER included positional blood pressure checks, several blood tests, a swab for the SARS-CoV-2 virus, and a CT scan of your head. Your entire work-up was unremarkable. No abnormalities were found on your CT s can. Your INR is therapeutic at 2.59. You had significant improvement in your headache after you were given an anti- migraine medication, indicating that the cause of your symptoms was a migraine. We recommend that you stay adequately hydrated and get plenty of rest tonight in a dark, quiet place. A prescription for the anti-migraine medicine rizatriptan (Maxalt) has been sent to the [facility], located at [address] [place] [address]. Dissolve 1 tablet of rizatriptan in your mouth, like a lozenge, at the earliest sign of a migraine. You may repeat after 2 hours, if necessary, to a maximum of 3 tablets within a 24-hour period. If rizatriptan works well for you, these follow-up with your PCP, Olivia Palacios NP, for an additional prescription. If any other problems, please do not hesitate to return to the ER. Sepsis Event Note (ED) - Evaluation Sepsis Screening Result: No Definite Risk - Focused Exam Vital Signs: Vital Signs Temp Pulse Resp BP Pulse Ox 04/12/21 18:38 36.0 C L 69 18 145/80 H 98 - My Orders Last 24 Hours: My Active Orders 04/12/21 19:18 Orthostatic Vital Signs [RC] STAT - Assessment/Plan Last 24 Hours: My Active Orders 04/12/21 19:18 Orthostatic Vital Signs [RC] STAT
--- NOTE | 2021-04-12 20:21 | CT ---
Head CT Technique: Multiple axial sections to the brain were obtained. Intravenous contrast was not utilized. Reconstructed coronal and sagittal images were obtained. Comparison: Prior head CT study of 04/23/20. Findings: Ventricles along with basal cisterns and sulci over the convexities are within normal limits for the patient's age. No abnormal parenchymal densities are seen. No evidence of intracranial hemorrhage. No midline shift or mass-effect is seen. Bone window settings were reviewed. Visualized mastoid sinuses and paranasal sinuses show nothing acute. No acute calvarial abnormality is appreciated. Impression: 1. Nothing acute is appreciated on noncontrast head CT exam. Diagnostic code #1
== END 2021-04-12 21:13 | disposition home or self-care (01) ==
LOC: JD.ED 18:14
DX: G43.909 Migraine, unspecified, not intractable, without status migrainosus (principal); Z20.822 Contact with and (suspected) exposure to COVID-19
CPT/HCPCS: 36415; 70450; 80053; 83735; 85007; 85027; 85610; 87635; 96372; 99284; A9270; J1630; J7030; U0002

== ENCOUNTER 2021-10-07 13:34 | Emergency (ER) | payer BC ==
[2021-10-07] MEDS ORDERED: Sodium Chloride 0.9% 10 ML Syringe FLUSH PRN (14:09)
[2021-10-07] MEDS ORDERED: Ondansetron 4 MG/2 ML SDV IVPUSH ONE (14:21)
[2021-10-07] MEDS ORDERED: Loperamide 2 MG Cap PO ONE (14:21)
[2021-10-07] MEDS ORDERED: Sodium Chloride 0.9% 1,000 ML IV ONE (14:29)
[2021-10-07] MEDS ORDERED: HYDROmorphone 0.5 MG/0.5 ML Syringe IVPUSH ONE ×2 (14:29→17:32)
--- NOTE | 2021-10-07 14:34 | EDM.PDOC ---
ED HPI GENERAL MEDICAL PROBLEM - General Chief Complaint: Respiratory Problem Stated Complaint: COUGH/CHEST PAIN/HEADACHE Time Seen by Provider: 10/07/21 14:05 Source of Information: Reports: Patient, RN Notes Reviewed History Limitations: Reports: No Limitations - History of Present Illness INITIAL COMMENTS - FREE TEXT/NARRATIVE: Patient is a 51-year-old female who presents to the ER for the evaluation of her cough/headache. States that she believes she had Covid about 4 months ago. Notes that for the last 5 days, she has been sick with a cough, chest discomfort, and a pretty nasty headache. States she has been trying to use Tylenol at home but states nothing seems to be helping much. Also is complaining of some nausea and vomiting and diarrhea, states that she is not able to keep down much for food/fluids/medications. Patient states that she has been around her neighbors who have been ill, and also a young grandchild who has been sick with illness at school. Primary care provider is Denise Rod. Patient is complaining of some all over body cramps/aches as well. Headache Pain Score (Numeric/FACES): 10 - Related Data Allergies Allergy/AdvReac Type Severity Reaction Status Date / Time cyclobenzaprine Allergy Intermediate Rash Verified 10/07/21 14:15 [From Flexeril] Fish Containing Products Allergy Intermediate Rash Verified 10/07/21 14:15 ibuprofen Allergy Intermediate Rash Verified 10/07/21 14:15 Iodinated Contrast Media Allergy Intermediate Rash Verified 10/07/21 14:15 [Iodinated Contrast- Oral and IV Dye] shrimp Allergy Intermediate Rash Verified 10/07/21 14:15 tizanidine [From Zanaflex] Allergy Intermediate Rash Verified 10/07/21 14:15 Home Meds: Home Meds Warfarin [Coumadin] 7.5 mg PO MOFR 11/22/18 [History] Warfarin [Coumadin] 5 mg PO SUTUWETHSA 07/31/19 [History] Omeprazole 40 mg PO DAILY 04/12/21 [History] Past Medical History Cardiovascular History: Reports: Blood Clots/VTE/DVT, Heart Valve Replacement, High Cholesterol, Hypertension Other Cardiovascular History: mitral,leaking valve Respiratory History: Reports: Bronchitis, Recurrent, Pneumonia, Recurrent Gastrointestinal History: Reports: GERD, Hiatal Hernia Other Gastrointestinal History: e.coli, unsure if had h pylori Genitourinary History: Reports: Urinary Incontinence, UTI, Recurrent 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 Dermatologic History: Reports: Melanoma - Infectious Disease History Infectious Disease History: Reports: Chicken Pox, Measles, Novel Coronavirus, Rheumatic Fever - Past Surgical History Cardiovascular Surgical History: Reports: Valve Replacement Respiratory Surgical History: Reports: Thoracentesis GI Surgical History: Reports: Appendectomy, Cholecystectomy, Hernia, Abdominal Other GI Surgeries/Procedures: hiatial Female Surgical History: Reports: Oophorectomy Social & Family History - Family History Family Medical History: No Pertinent Family History - Tobacco Use Tobacco Use Status *Q: Current Every Day Tobacco User Years of Tobacco use: 30 Packs/Tins Daily: 0.2 - Caffeine Use Caffeine Use: Reports: Coffee - Recreational Drug Use Recreational Drug Use: No - Living Situation & Occupation Living situation: Reports: , with Spouse Occupation: Unemployed ED ROS GENERAL - Review of Systems Review Of Systems: Comprehensive ROS is negative, except as noted in HPI. ED EXAM, GENERAL - Physical Exam Exam: See Below Exam Limited By: No Limitations General Appearance: Alert, WD/WN, No Apparent Distress Respiratory/Chest: No Respiratory Distress, Lungs Clear, Normal Breath Sounds, No Accessory Muscle Use, Other (entire chest seems to be tender with palpation) Cardiovascular: Normal Peripheral Pulses, Regular Rate, Rhythm, No Edema Peripheral Pulses: 2+: Radial (L), Radial (R) GI/Abdominal: Normal Bowel Sounds, Soft, Non-Tender, No Distention, No Mass Neurological: Alert, Oriented, Normal Cognition, No Motor/Sensory Deficits Psychiatric: Normal Affect, Normal Mood Skin Exam: Warm, Dry, Intact, Normal Color, No Rash #1 Interpretation EKG Date: 10/07/21 Time: 14:25 Rhythm: NSR Rate (Beats/Min): 87 [place]: Normal P-Wave: Present QRS: Normal ST-T: Normal QT: Normal EKG Interpretation Comments: No obvious ischemia or acute ST changes noted, reviewed by myself and Dr. Hay. #2 Interpretation EKG Date: 10/07/21 Time: 18:57 Rhythm: NSR Rate (Beats/Min): 79 [place]: Normal P-Wave: Present QRS: Normal ST-T: Other (slight T wave flattening in III and aVf appreciated by Dr. Stapleton) QT: Normal EKG Interpretation Comments: There was some minimal T wave flattening in leads III and aVF appreciated by Dr. Hay. Course - Vital Signs Last Recorded V/S: Last Vital Signs Temp 98.4 F 10/07/21 15:16 Pulse 85 10/07/21 18:39 Resp 18 10/07/21 15:16 BP 123/80 10/07/21 16:23 Pulse Ox 92 L 10/07/21 18:39 - Orders/Labs/Meds Orders: Active Orders 24 hr Category Date Time Status Peripheral IV Care [RC] . DIRECTED Care 10/07/21 14:09 Active Sodium Chloride 0.9% [Saline Flush] Med 10/07/21 14:09 Active 10 ml FLUSH ASDIRECTED PRN Peripheral IV Insertion Adult [OM.PC] Routine Oth 10/07/21 14:09 Ordered Medication Orders Sodium Chloride (Sodium Chloride 0.9% 10 Ml Syringe) 10 ml FLUSH ASDIRECTED PRN PRN Reason: Keep Vein Open Last Admin: 10/07/21 14:50 Dose: 10 ml Documented by: HILTON Labs: Laboratory Tests 10/07/21 10/07/21 10/07/21 Range/Units 14:05 14:50 14:50 WBC 7.55 (3.98-10.04) K/mm3 RBC 5.54 H (3.98-5.22) M/mm3 Hgb 15.5 (11.2-15.7) gm/dl Hct 47.4 H (34.1-44.9) % MCV 85.6 D (79.4-94.8) fl MCH 28.0 (25.6-32.2) pg MCHC 32.7 (32.2-35.5) g/dl RDW Std Deviation 49.2 H (36.4-46.3) fL Plt Count 223 (182-369) K/mm3 MPV 12.4 H (9.4-12.3) fl Neut % (Auto) 77.3 H (34.0-71.1) % Lymph % (Auto) 12.3 L (19.3-51.7) % [place] % (Auto) 9.5 (4.7-12.5) % Eos % (Auto) 0.1 L (0.7-5.8) Baso % (Auto) 0.7 (0.1-1.2) % Neut # (Auto) 5.83 (1.56-6.13) K/mm3 Lymph # (Auto) 0.93 L (1.18-3.74) K/mm3 [place] # (Auto) 0.72 H (0.24-0.36) K/mm3 Eos # (Auto) 0.01 L (0.04-0.36) K/mm3 Baso # (Auto) 0.05 (0.01-0.08) K/mm3 Manual Slide Review PT (9.7-12.0) SECONDS INR APTT (21.7-31.4) SECONDS D-Dimer, Quantitative (0.19-0.50) mg/L Sodium (136-145) mEq/L Potassium (3.5-5.1) mEq/L Chloride (98-107) mEq/L Carbon Dioxide (21-32) mEq/L Anion Gap (5-15) BUN (7-18) mg/dL Creatinine (0.55-1.02) mg/dL Est Cr Clr Drug Dosing mL/min Estimated GFR (MDRD) (>60) mL/min BUN/Creatinine Ratio (14-18) Glucose (70-99) mg/dL Calcium (8.5-10.1) mg/dL Total Bilirubin (0.2-1.0) mg/dL AST (15-37) U/L ALT (14-59) U/L Alkaline Phosphatase (46-116) U/L Troponin I (0.00-0.056) ng/mL C-Reactive Protein 11.0 H* (<1.0) mg/dL Total Protein (6.4-8.2) g/dl Albumin (3.4-5.0) g/dl Globulin gm/dL Albumin/Globulin Ratio (1-2) Influenza Type A RNA Negative (NEGATIVE) Influenza Type B RNA Negative (NEGATIVE) SARS-CoV-2 RNA (MIGUE) Positive H (NEGATIVE) 10/07/21 10/07/21 10/07/21 Range/Units 14:50 14:50 15:00 WBC (3.98-10.04) K/mm3 RBC (3.98-5.22) M/mm3 Hgb (11.2-15.7) gm/dl Hct (34.1-44.9) % MCV (79.4-94.8) fl MCH (25.6-32.2) pg MCHC (32.2-35.5) g/dl RDW Std Deviation (36.4-46.3) fL Plt Count (182-369) K/mm3 MPV (9.4-12.3) fl Neut % (Auto) (34.0-71.1) % Lymph % (Auto) (19.3-51.7) % [place] % (Auto) (4.7-12.5) % Eos % (Auto) (0.7-5.8) Baso % (Auto) (0.1-1.2) % Neut # (Auto) (1.56-6.13) K/mm3 Lymph # (Auto) (1.18-3.74) K/mm3 [place] # (Auto) (0.24-0.36) K/mm3 Eos # (Auto) (0.04-0.36) K/mm3 Baso # (Auto) (0.01-0.08) K/mm3 Manual Slide Review PT 29.8 H (9.7-12.0) SECONDS INR 2.79 APTT 46.4 H (21.7-31.4) SECONDS D-Dimer, Quantitative 0.35 (0.19-0.50) mg/L Sodium 136 (136-145) mEq/L Potassium 4.0 (3.5-5.1) mEq/L Chloride 99 (98-107) mEq/L Carbon Dioxide 23 (21-32) mEq/L Anion Gap 18.0 H (5-15) BUN 10 (7-18) mg/dL Creatinine 1.0 (0.55-1.02) mg/dL Est Cr Clr Drug Dosing 56.18 mL/min Estimated GFR (MDRD) 58 (>60) mL/min BUN/Creatinine Ratio 10.0 L (14-18) Glucose 91 (70-99) mg/dL Calcium 9.3 (8.5-10.1) mg/dL Total Bilirubin 1.7 H (0.2-1.0) mg/dL AST 38 H (15-37) U/L ALT 28 (14-59) U/L Alkaline Phosphatase 90 (46-116) U/L Troponin I 0.292 H* (0.00-0.056) ng/mL C-Reactive Protein (<1.0) mg/dL Total Protein 7.5 (6.4-8.2) g/dl Albumin 4.2 (3.4-5.0) g/dl Globulin 3.3 gm/dL Albumin/Globulin Ratio 1.3 (1-2) Influenza Type A RNA (NEGATIVE) Influenza Type B RNA (NEGATIVE) SARS-CoV-2 RNA (MIGUE) (NEGATIVE) 10/07/21 Range/Units 17:44 WBC (3.98-10.04) K/mm3 RBC (3.98-5.22) M/mm3 Hgb (11.2-15.7) gm/dl Hct (34.1-44.9) % MCV (79.4-94.8) fl MCH (25.6-32.2) pg MCHC (32.2-35.5) g/dl RDW Std Deviation (36.4-46.3) fL Plt Count (182-369) K/mm3 MPV (9.4-12.3) fl Neut % (Auto) (34.0-71.1) % Lymph % (Auto) (19.3-51.7) % [place] % (Auto) (4.7-12.5) % Eos % (Auto) (0.7-5.8) Baso % (Auto) (0.1-1.2) % Neut # (Auto) (1.56-6.13) K/mm3 Lymph # (Auto) (1.18-3.74) K/mm3 [place] # (Auto) (0.24-0.36) K/mm3 Eos # (Auto) (0.04-0.36) K/mm3 Baso # (Auto) (0.01-0.08) K/mm3 Manual Slide Review PT (9.7-12.0) SECONDS INR APTT (21.7-31.4) SECONDS D-Dimer, Quantitative (0.19-0.50) mg/L Sodium (136-145) mEq/L Potassium (3.5-5.1) mEq/L Chloride (98-107) mEq/L Carbon Dioxide (21-32) mEq/L Anion Gap (5-15) BUN (7-18) mg/dL Creatinine (0.55-1.02) mg/dL Est Cr Clr Drug Dosing mL/min Estimated GFR (MDRD) (>60) mL/min BUN/Creatinine Ratio (14-18) Glucose (70-99) mg/dL Calcium (8.5-10.1) mg/dL Total Bilirubin (0.2-1.0) mg/dL AST (15-37) U/L ALT (14-59) U/L Alkaline Phosphatase (46-116) U/L Troponin I 0.449 H* (0.00-0.056) ng/mL C-Reactive Protein (<1.0) mg/dL Total Protein (6.4-8.2) g/dl Albumin (3.4-5.0) g/dl Globulin gm/dL Albumin/Globulin Ratio (1-2) Influenza Type A RNA (NEGATIVE) Influenza Type B RNA (NEGATIVE) SARS-CoV-2 RNA (MIGUE) (NEGATIVE) Meds: Medications Generic Name Dose Route Start Last Admin Trade Name Sage PRN Reason Stop Dose Admin Sodium Chloride 10 ml 10/07/21 14:09 10/07/21 14:50 Sodium Chloride 0.9% 10 Ml Syringe FLUSH 10 ml ASDIRECTED PRN Administration Keep Vein Open Discontinued Medications Generic Name Dose Route Start Last Admin Trade Name Sage PRN Reason Stop Dose Admin Aspirin 324 mg 10/07/21 16:53 10/07/21 17:43 Aspirin 81 Mg Tab.Chew PO 10/07/21 16:54 324 mg ONETIME ONE Administration Heparin Sodium (Porcine) 3,720 units 10/07/21 18:45 Heparin Sodium 5,000 Units/Ml Vial IVPUSH 10/07/21 18:46 .BOLUS ONE Hydromorphone HCl 0.5 mg 10/07/21 14:29 10/07/21 14:53 Hydromorphone 0.5 Mg/0.5 Ml Syringe IVPUSH 10/07/21 14:30 0.5 mg ONETIME ONE Administration Hydromorphone HCl 0.5 mg 10/07/21 17:32 10/07/21 17:42 Hydromorphone 0.5 Mg/0.5 Ml Syringe IVPUSH 10/07/21 17:33 0.5 mg ONETIME ONE Administration Sodium Chloride 1,000 mls @ 999 mls/hr 10/07/21 14:29 10/07/21 14:50 Normal Saline IV 10/07/21 15:29 999 mls/hr ONETIME ONE Administration Heparin Sodium/Dextrose 25,000 units in 500 mls @ 14.947 mls/hr 10/07/21 18:45 Heparin 25,000 Units In D5w 500 Ml IV TITRATE BILL Protocol 12 UNITS/KG/HR Loperamide HCl 4 mg 10/07/21 14:21 10/07/21 14:44 Loperamide 2 Mg Cap PO 10/07/21 14:22 4 mg ONETIME ONE Administration Ondansetron HCl 4 mg 10/07/21 14:21 10/07/21 14:52 Ondansetron 4 Mg/2 Ml Sdv IVPUSH 10/07/21 14:22 4 mg ONETIME ONE Administration - Re-Assessments/Exams Free Text/Narrative Re-Assessment/Exam: 10/07/21 14:33 Patient presents to the ER for evaluation of her respiratory illness. We will go ahead and get some basic labs, get IV started, give her some fluids, Zofran, and 0.5 mg IV Dilaudid due to her ibuprofen allergy and taking warfarin, we will avoid ketorolac. Patient be reassessed once the labs have started to result. 10/07/21 17:38 Patient's labs have resulted, she did return Covid positive, with her ongoing symptoms is likely this could be a reinfection so we will treat her as active Covid. Troponin is elevated at 0.292, CRP elevated at 11.0, D-dimer is within normal limits. I did discuss the patient's clinical course with the radioactivity technician on-call at [facility], Dr. De Paz and he does recommend trending the patient's troponin levels at a 3-hour interval, so I did order a 3- hour repeat troponin to be drawn at around 17:30, Dr. De Paz did note that if the troponin seems to be stable or decreasing, that she should be observed overnight with repeat troponins, but if it should increase, then she should be heparinized. He states that there was no harm in giving her some aspirin initially but again to hold off on the heparin. Patient was having a little bit more body cramps and headache so she did receive another 0.5 mg IV Dilaudid for pain management. 10/07/21 19:16 Patient's INR did come back at 2.79 so this is supratherapeutic. Heparin will be held. I did call and talk with the hospitalist Dr. Arnett at [facility] in [place] due to the doubled troponin level, this did come back more elevated at 0.449. She does accept the patient in transfer at this time. We will send the patient by ambulance for ongoing management. Departure - Departure Time of Disposition: 19:17 Disposition: DC/Tfer to Acute Hospital 02 Condition: Good Clinical Impression: Non-STEMI (non-ST elevated myocardial infarction), COVID-19 - Discharge Information Referrals: Denise Rod APPRENTICE [Primary Care Provider] - Forms: ED Department Discharge Sepsis Event Note (ED) - Evaluation Sepsis Screening Result: No Definite Risk - Focused Exam Vital Signs: Vital Signs Temp Pulse Resp BP Pulse Ox 10/07/21 18:39 85 92 L 10/07/21 16:23 86 123/80 92 L 10/07/21 15:16 98.4 F 88 18 137/83 94 L 10/07/21 14:05 98.3 F 110 H 20 146/104 H 97 - My Orders Last 24 Hours: My Active Orders 10/07/21 14:09 Peripheral IV Care [RC] . DIRECTED Sodium Chloride 0.9% [Saline Flush] 10 ml FLUSH ASDIRECTED PRN Peripheral IV Insertion Adult [OM.PC] Routine - Assessment/Plan Last 24 Hours: My Active Orders 10/07/21 14:09 Peripheral IV Care [RC] . DIRECTED Sodium Chloride 0.9% [Saline Flush] 10 ml FLUSH ASDIRECTED PRN Peripheral IV Insertion Adult [OM.PC] Routine
[2021-10-07 15:08] LABS: CORONAVIRUS COVID-19 NAA POSITIVE (NEGATIVE)
--- NOTE | 2021-10-07 16:15 | CR ---
Chest: Portable view of the chest was obtained. Comparison: Prior chest x-ray of 11/26/19. Heart size and mediastinum show prior sternotomy and prosthetic heart valve placement. Lungs are clear with no acute parenchymal change. Bony structures show nothing acute. Surgical clips are seen from prior cholecystectomy. Impression: 1. Prior surgery as noted above. 2. Nothing acute is seen on portable chest x-ray. Diagnostic code #2
[2021-10-07] MEDS ORDERED: Aspirin 81 MG Tab.Chew PO ONE (16:53)
[2021-10-07] MEDS ORDERED: Heparin Sodium/D5W 25,000 UNITS/500 ML BAG IV SCH (18:45)
[2021-10-07] MEDS ORDERED: Heparin Sodium 5,000 Units/ML Vial IVPUSH ONE (18:45)
== END 2021-10-07 20:00 ==
LOC: JD.ED 13:34
DX: U07.1 COVID-19 (principal); I21.4 Non-ST elevation (NSTEMI) myocardial infarction; E78.00 Pure hypercholesterolemia, unspecified; I10 Essential (primary) hypertension; K21.9 Gastro-esophageal reflux disease without esophagitis; Z72.0 Tobacco use; Z91.013 Allergy to seafood; Z88.8 Allergy status to other drugs, medicaments and biological substances; Z91.041 Radiographic dye allergy status; Z91.018 Allergy to other foods; Z79.01 Long term (current) use of anticoagulants; Z79.899 Other long term (current) drug therapy
CPT/HCPCS: 0240U; 36415; 71045; 80053; 84484; 85025; 85379; 85610; 85730; 86140; 93005; 96374; 96375; 96376; 99285; A9270; J1170; J2405; J7030

== ENCOUNTER 2021-11-08 11:38 | Emergency (ER) | payer BC ==
[2021-11-08] MEDS ORDERED: HYDROmorphone 0.5 MG/0.5 ML Syringe IVPUSH ONE (12:24)
[2021-11-08] MEDS ORDERED: Metoclopramide 10 MG/2 ML SDV IVPUSH ONE (12:25)
--- NOTE | 2021-11-08 12:29 | EDM.PDOC ---
ED HPI GENERAL MEDICAL PROBLEM - General Chief Complaint: Flank Pain Stated Complaint: ABD\RT SIDE PAIN Time Seen by Provider: 11/08/21 12:24 Source of Information: Reports: Patient History Limitations: Reports: Language Barrier (Language barrier. Patient appears to be of or [place] ancestry. She understands Azeri but you have to repeat things sometimes 2 or 3 times for her to get the concept.) - History of Present Illness INITIAL COMMENTS - FREE TEXT/NARRATIVE: 51-year-old female of [place] ancestry presents to the ED with complaint of right flank pain rating down towards the right groin. She reports this awoke her around 0300 hrs. this morning and has been rather persistent and gradually getting worse. Associated nausea without any vomiting. She has not yet ate or drank anything today. Normal bowel movement this morning. Of note she is on Coumadin chronically and her INR was elevated at 8.0 yesterday. She states that she is on the Coumadin for some form of intra-abdominal process which is unlikely. She is in sinus rhythm clinically. She does not think she is ever have a blood clot in her lung. Questionable blood clot in her lower extremities old n chandan suggest that she has had a valve replacement. This is the likely reason for being on Coumadin. She has had renal colic in the past but not for many years Onset: Today, Sudden Onset Date: 11/08/21 Onset Time: 03:00 Duration: Hour(s):, Getting Worse Location: Reports: Abdomen (Right flank pain pain radiating from the right flank around the right abdomen down towards the right groin and to the vulva.), Back Quality: Reports: Ache, Sharp, Stabbing, Other (Constant deep aching pain with intermittent colicky pain) Severity: Severe Improves with: Reports: None (9 out of 10) Worsens with: Reports: None Context: Reports: Other (Spontaneous occurrence of pain around 0300 hrs. that woke her from sleep). Denies: Activity, Exercise, Lifting, Sick Contact, Trauma Associated Symptoms: Reports: Malaise, Nausea/Vomiting. Denies: Chest Pain, Cough, cough w sputum, Diaphoresis, Fever/Chills, Rash, Seizure (Nausea without vomiting), Shortness of Breath Treatments DIRECTOR SCRIPT: Reports: Other (see below) (None.) Right Flank Pain Score (Numeric/FACES): 8 - Related Data Allergies Allergy/AdvReac Type Severity Reaction Status Date / Time cyclobenzaprine Allergy Severe Rash Verified 11/08/21 11:55 [From Flexeril] Fish Containing Products Allergy Severe Rash Verified 11/08/21 11:55 ibuprofen Allergy Severe Rash Verified 11/08/21 11:55 Iodinated Contrast Media Allergy Severe Rash Verified 11/08/21 11:55 [Iodinated Contrast- Oral and IV Dye] shrimp Allergy Severe Rash Verified 11/08/21 11:55 tizanidine [From Zanaflex] Allergy Severe Rash Verified 11/08/21 11:55 Home Meds: Home Meds Warfarin [Coumadin] 7.5 mg PO WE 11/22/18 [History] Warfarin [Coumadin] 5 mg PO SUMOTUTHFRSA 07/31/19 [History] Omeprazole 40 mg PO DAILY 04/12/21 [History] Past Medical History Cardiovascular History: Reports: Blood Clots/VTE/DVT, Heart Valve Replacement, High Cholesterol, Hypertension Other Cardiovascular History: mitral,leaking valve Respiratory History: Reports: Bronchitis, Recurrent, Pneumonia, Recurrent Gastrointestinal History: Reports: GERD, Hiatal Hernia Other Gastrointestinal History: e.coli, unsure if had h pylori Genitourinary History: Reports: Urinary Incontinence, UTI, Recurrent [employer] History: Reports: Musculoskeletal History: Reports: Back Pain, Chronic Neurological History: Reports: Headaches, Chronic Psychiatric History: Reports: Anxiety Hematologic History: Reports: Anticoagulation Therapy Other Hematologic History: blood clots to legs Oncologic (Cancer) History: Reports: Squamous Cell Carcinoma, Other (See Below) Other Oncologic History: melanoma, non-malignant. Dermatologic History: Reports: Melanoma - Infectious Disease History Infectious Disease History: Reports: Chicken Pox, Measles, Novel Coronavirus, Rh eumatic Fever - Past Surgical History Cardiovascular Surgical History: Reports: Valve Replacement Respiratory Surgical History: Reports: Thoracentesis GI Surgical History: Reports: Appendectomy, Cholecystectomy, Hernia, Abdominal Other GI Surgeries/Procedures: hiatial Female Surgical History: Reports: Oophorectomy Oncologic Surgical History: Reports: Other (See Below) Social & Family History - Family History Family Medical History: No Pertinent Family History - Tobacco Use Tobacco Use Status *Q: Current Every Day Tobacco User Years of Tobacco use: 28 Packs/Tins Daily: 0.1 - Caffeine Use Caffeine Use: Reports: Coffee - Recreational Drug Use Recreational Drug Use: No - Living Situation & Occupation Living situation: Reports: , with Spouse Occupation: Unemployed ED ROS GENERAL - Review of Systems Review Of Systems: See Below Constitutional: Reports: Malaise, Fatigue, Decreased Appetite. Denies: Fever, Chills HEENT: Reports: No Symptoms Respiratory: Reports: No Symptoms Cardiovascular: Reports: Other (Previous heart valve replacement). Denies: Chest Pain, Blood Pressure Problem, Claudication, Dyspnea on Exertion, Lightheadedness, Orthopnea, Palpitations, PND, Syncope Endocrine: Reports: Fatigue (From not sleeping well) GI/Abdominal: Reports: Abdominal Pain (Starts in her right flank and radiates around the right mid abdomen down to the right groin), Decreased Appetite, Nausea. Denies: Diarrhea, Difficulty Swallowing, Distension, Flatus, Hematemesis, Hematochezia, Melena, Vomiting : Reports: Flank Pain, Frequency (Right side awoke her from sleep at 0300 hrs. this morning.), Urgency, Other (Not passing much urine so far this morning. No blood noted). Denies: Dysuria, Urinary Retention Musculoskeletal: Reports: No Symptoms Skin: Reports: Other Neurological: Reports: No Symptoms Psychiatric: Reports: No Symptoms Hematologic/Lymphatic: Reports: No Symptoms Immunologic: Reports: No Symptoms ED EXAM, GI/ABD - Physical Exam Exam: See Below Exam Limited By: No Limitations General Appearance: Alert, WD/WN, Moderate Distress, Other (Temperature is 36.4. Heart rate 76 and sinus respiratory 16 with O2 sats of 97% room air. BP 137/95) Eyes: Bilateral: Normal Appearance Throat/Mouth: Normal Inspection, Normal Lips, Normal Teeth, Normal Voice, Other (Tongue is mildly dry and coated) Head: Atraumatic, Normocephalic Neck: Normal Inspection, Supple, Non-Tender, Full Range of Motion, Carotid Bruit. No: Lymphadenopathy (L), Lymphadenopathy (R) Respiratory/Chest: No Respiratory Distress, Lungs Clear, Normal Breath Sounds, No Accessory Muscle Use Cardiovascular: Normal Peripheral Pulses, Regular Rate, Rhythm, No Edema, No Gallop, No JVD, No Rub, Other (Well-healed midline sternotomy incision). No: Systolic Murmur GI/Abdominal Exam: Soft, Non-Tender, No Organomegaly, No Distention, Abnormal Bowel Sounds (Bowel sounds are hyperactive in all 4 quadrants.), Other (Deep breathing makes the abdominal pain worse. Mild tympany to percussion upper abdomen. Previous cholecystectomy). No: Distended, Guarding, Rigid, Rebound Back Exam: CVA Tenderness (R). No: CVA Tenderness (L) (Moderate) Extremities: Normal Inspection, Normal Range of Motion, Non-Tender, No Pedal Edema Neurological: Alert, Oriented, CN II-XII Intact, Normal Cognition, Normal Gait Psychiatric: Other Skin Exam: Warm, Dry (And a good deal of discomfort), Intact, Normal Color, No Rash Course - Vital Signs Last Recorded V/S: Last Vital Signs Temp 36.4 C 11/08/21 11:51 Pulse 76 11/08/21 11:51 Resp 16 11/08/21 11:51 BP 137/95 H 11/08/21 11:51 Pulse Ox 97 11/08/21 11:51 - Orders/Labs/Meds Orders: Active Orders 24 hr Category Date Time Status URINALYSIS W/MICROSCOPIC [UA W/MICROSCOPIC] [URIN] Stat Lab 11/08/21 12:40 Results Dextrose 5%-0.9% NaCl [Dextrose 5%-Normal Saline] 1,000 Med 11/08/21 12:30 Active ml IV ASDIRECTED Medication Orders Dextrose/Sodium Chloride (Dextrose 5%-Normal Saline) 1,000 mls @ 150 mls/hr IV ASDIRECTED BILL Last Admin: 11/08/21 12:45 Dose: 150 mls/hr Documented by: RIOS Labs: Laboratory Tests 11/08/21 Range/Units 12:40 Urine Color Yellow (Yellow) Urine Appearance Clear (Clear) Urine pH 6.0 (5.0-8.0) Ur Specific [place] 1.020 (1.005-1.030) Urine Protein Negative (Negative) Urine Glucose (UA) Negative (Negative) Urine Ketones Negative (Negative) Urine Occult Blood Negative (Negative) Urine Nitrite Negative (Negative) Urine Bilirubin Negative (Negative) Urine Urobilinogen 0.2 (0.2-1.0) Ur Leukocyte Esterase Negative (Negative) Meds: Medications Generic Name Dose Route Start Last Admin Trade Name Freq PRN Reason Stop Dose Admin Dextrose/Sodium Chloride 1,000 mls @ 150 mls/hr 11/08/21 12:30 11/08/21 12:45 Dextrose 5%-Normal Saline IV 150 mls/hr ASDIRECTED BILL Administration Discontinued Medications Generic Name Dose Route Start Last Admin Trade Name Sage PRN Reason Stop Dose Admin Hydromorphone HCl 0.5 mg 11/08/21 12:24 11/08/21 12:46 Hydromorphone 0.5 Mg/0.5 Ml Syringe IVPUSH 11/08/21 12:25 0.5 mg ONETIME ONE Administration Magnesium Citrate 240 ml 11/08/21 14:01 Magnesium Citrate Solution 296 Ml Bottle PO 11/08/21 14:02 ONETIME ONE Metoclopramide HCl 7.5 mg 11/08/21 12:25 11/08/21 12:45 Metoclopramide 10 Mg/2 Ml Sdv IVPUSH 11/08/21 12:26 7.5 mg ONETIME ONE Administration - Radiology Interpretation Free Text/Narrative:: 51-year-old female presents to the ED with acute onset of right flank pain that is now radiating around the right lower abdomen down to the right groin suspicious for renal colic. She has a history of remote renal colic she thinks greater than 10 years ago. She is also on Coumadin because of prosthetic aortic valve replacement. Apparently her night INR was elevated at greater than 8 yesterday and she is currently not on Coumadin for the next 3 days. She has not appreciated any hematuria. She is nauseated from the degree of pain. Pain is currently rating down towards the right groin. Plan IV D5 normal saline at 150 mils an hour. Dilaudid 0.5 mg IV with Reglan 7.5 mg IV for pain and nausea relief. Urinalysis to be collected if 1 becomes available. She will have CT of the abdomen and pelvis carried out with no contrast per renal protocol - Re-Assessments/Exams Free Text/Narrative Re-Assessment/Exam: 11/08/21 13:49 Urinalysis returned completely normal. CT scan of the abdomen pelvis has been completed without any contrast per renal protocol. Visualized lung bases show nothing acute. Small low-density findings are seen within the liver which are fairly similar to previous examination. Spleen appears to be within normal limits. Adrenal glands show no nodules. Pancreas is within normal limits. Surgical hips are seen from prior cholecystectomy. Abdominal aorta shows atherosclerotic calcification with no aneurysm. No retroperitoneal adenopathy is appreciated. No mesenteric abnormalities are seen. No pelvic mass or adenopathy is noted. Scattered varicosities are seen within the subcutaneous tissues within the fat of the anterior pelvis which are similar to previous examination. Calcified granuloma is seen within the left buttock. Kidneys show no abnormal calcifications. No ureteral dilatation or ureteral stones are appreciated. No bladder calculi are identified. Appendix is not visualized. Bone window settings reviewed. Mild disc space narrowing at L4-5 and the L5-S1 levels appreciated. Vacuum disc phenomena is seen at the L5-S1 level. Mild scattered endplate osteophytes are seen. Mild degenerative apophyseal changes are seen within the lower lumbar spine. No acute osseous findings identified. On my evaluation there is increased stool throughout the large bowel particular throughout the right hemicolon and hepatic flexure of this transverse colon. This likely is the reason for the patient's pain. There are some mildly dilated loops of small bowel in the midabdomen containing fluid. Departure - Departure Time of Disposition: 14:01 Disposition: Home, Self-Care 01 Condition: Fair Clinical Impression: Constipation by delayed colonic transit Abdominal pain Qualifiers: Abdominal location: right lower quadrant Qualified Code(s): R10.31 - Right lower quadrant pain - Discharge Information *PRESCRIPTION DRUG MONITORING PROGRAM REVIEWED*: Not Applicable *COPY OF PRESCRIPTION DRUG MONITORING REPORT IN PATIENT ERUM: Not Applicable Instructions: Constipation, Adult, [id number], Abdominal Pain, Adult, E asy-to-Read Referrals: Denise Rod NP [Primary Care Provider] - Forms: ED Department Discharge Additional Instructions: Evaluation in the emergency room today in regards to development of right flank pain radiating down to the right lower quadrant of the abdomen since 0300 hrs. this morning. Associated nausea without vomiting. Remote history of kidney stones. Examination revealed bowel sounds to be very active in all 4 quadrants of the abdomen. CT of the abdomen is performed per renal protocol. They revealed no stones in either kidney and no stones in either ureter or in the bladder. It does reveal increased stool throughout the right hemicolon and large portions of the transverse colon of the upper abdomen. This is compatible with constipation in the distribution that you are having pain. Urinalysis also did not show any blood suggestive of a kidney stone. Suggest treatment with magnesium citrate or Citroma taking 8 ounces mixed with 6 ounces of juice of choice by mouth once. This will take about 2 to 3 hours to work and will usually make the bowels work 3-4 times tonight. May eat and drink per normal. Return to medical care if not markedly improved after bowel cleanse. Sepsis Event Note (ED) - Evaluation Sepsis Screening Result: No Definite Risk - Focused Exam Vital Signs: Vital Signs Temp Pulse Resp BP Pulse Ox 11/08/21 11:51 36.4 C 76 16 137/95 H 97 - My Orders Last 24 Hours: My Active Orders 11/08/21 12:30 Dextrose 5%-0.9% NaCl [Dextrose 5%-Normal Saline] 1,000 ml IV ASDIRECTED 11/08/21 12:40 URINALYSIS W/MICROSCOPIC [UA W/MICROSCOPIC] [URIN] Stat - Assessment/Plan Last 24 Hours: My Active Orders 11/08/21 12:30 Dextrose 5%-0.9% NaCl [Dextrose 5%-Normal Saline] 1,000 ml IV ASDIRECTED 11/08/21 12:40 URINALYSIS W/MICROSCOPIC [UA W/MICROSCOPIC] [URIN] Stat
[2021-11-08] MEDS ORDERED: Dextrose 5%-0.9% NaCl 1,000 ML IV SCH (12:30)
--- NOTE | 2021-11-08 13:33 | CT ---
CT abdomen and pelvis Technique: Multiple axial sections were obtained from above the dome of the diaphragm inferiorly through the pubic symphysis. Intravenous contrast was not utilized. Study has been performed as a ureteral stone protocol. Reconstructed coronal and sagittal images were obtained. Comparison: Prior CT abdomen and pelvis exam of 04/21/20. Findings: Visualized lung bases show nothing acute. Small low density findings are seen within the liver which are fairly similar to previous exam. Spleen appears within normal limits. Adrenal glands show no nodule. Pancreas is within normal limits. Surgical clips are seen from prior cholecystectomy. Abdominal aorta shows atherosclerotic calcification with no aneurysm. No retroperitoneal adenopathy is seen. No mesenteric abnormalities are seen. No pelvic mass or adenopathy is seen. Scattered varicosities are seen within the subcutaneous tissues within the fat of the anterior pelvis which are similar to previous exam. Calcified granuloma is seen within the left buttocks. Kidneys show no abnormal calcifications. No ureteral dilatation or ureteral stone is seen. No bladder calculi are seen. Appendix is not visualized. Bone window settings were reviewed. Mild disc space narrowing at L4-5 and L5-S1. Vacuum disc phenomena is seen within L5-S1. Mild scattered endplate osteophytes are seen. Mild degenerative apophyseal change is seen within the lower lumbar spine. No acute osseous finding is seen. Impression: 1. No ureteral calculi, ureteral dilatation or ureteral stone is seen. 2. Other findings as noted above which are felt to be nonacute. Diagnostic code #2
[2021-11-08] MEDS ORDERED: Magnesium Citrate Solution 296 ML Bottle PO ONE (14:01)
== END 2021-11-08 14:51 | disposition home or self-care (01) ==
LOC: JD.ED 11:38
DX: K59.01 Slow transit constipation (principal); I10 Essential (primary) hypertension; K21.9 Gastro-esophageal reflux disease without esophagitis; Z72.0 Tobacco use; Z88.8 Allergy status to other drugs, medicaments and biological substances; Z91.013 Allergy to seafood; Z88.6 Allergy status to analgesic agent; Z91.041 Radiographic dye allergy status; Z79.01 Long term (current) use of anticoagulants; Z79.899 Other long term (current) drug therapy
CPT/HCPCS: 74176; 81001; 96374; 96375; 99284; A9270; J1170; J2765; J7042; 99285

== ENCOUNTER 2021-11-13 21:48 | Emergency (ER) | payer BC ==
[2021-11-13] MEDS ORDERED: Morphine 4 MG/ML Syringe IVPUSH ONE (22:16)
[2021-11-13] MEDS ORDERED: Ondansetron 4 MG/2 ML SDV IVPUSH ONE (22:16)
[2021-11-13] MEDS ORDERED: Lactated Ringers 1,000 ML IV ONE (22:16)
[2021-11-13] MEDS ORDERED: Ketorolac 15 MG/ML SDV IVPUSH ONE (22:30)
--- NOTE | 2021-11-13 22:33 | EDM.PDOC ---
ED HPI GENERAL MEDICAL PROBLEM - General Chief Complaint: Genitourinary Problem Stated Complaint: EXCESSIVE URINATION/BACK AND ABD PAIN Time Seen by Provider: 11/13/21 22:15 Source of Information: Reports: Patient, Family History Limitations: Reports: No Limitations - History of Present Illness INITIAL COMMENTS - FREE TEXT/NARRATIVE: Patient is a 51-year-old female presenting to the emergency room with a chief complaint of bilateral flank pain and dysuria. Patient is present with family member who provides Latvian language interpretation. Patient states that she was experiencing dysuria earlier in the day and then had onset of bilateral flank pain. She reports the pain is moderate to severe in nature. Does not seem to worsen with position. She has no fevers, diarrhea, abnormal stool. She does report associated nausea, chills and some right-sided abdominal pain. Tylenol was taken at home with little relief. Bilateral Flank Pain Score (Numeric/FACES): 10 - Related Data Allergies Allergy/AdvReac Type Severity Reaction Status Date / Time cyclobenzaprine Allergy Intermediate Rash Verified 11/13/21 21:57 [From Flexeril] Fish Containing Products Allergy Intermediate Rash Verified 11/13/21 21:57 ibuprofen Allergy Intermediate Rash Verified 11/13/21 21:57 Iodinated Contrast Media Allergy Intermediate Rash Verified 11/13/21 21:57 [Iodinated Contrast- Oral and IV Dye] shrimp Allergy Intermediate Rash Verified 11/13/21 21:57 tizanidine [From Zanaflex] Allergy Intermediate Rash Verified 11/13/21 21:57 Home Meds: Home Meds Warfarin [Coumadin] 7.5 mg PO WE 11/22/18 [History] Warfarin [Coumadin] 5 mg PO SUMOTUTHFRSA 07/31/19 [History] Omeprazole 40 mg PO DAILY 04/12/21 [History] Phenazopyridine [Pyridium] 100 mg PO TID PRN #12 tab 11/14/21 [Rx] Past Medical History Cardiovascular History: Reports: Blood Clots/VTE/DVT, Heart Valve Replacement, High Cholesterol, Hypertension Other Cardiovascular History: mitral,leaking valve Respiratory History: Reports: Bronchitis, Recurrent, Pneumonia, Recurrent Gastrointestinal History: Reports: GERD, Hiatal Hernia Other Gastrointestinal History: e.coli, unsure if had h pylori Genitourinary History: Reports: Urinary Incontinence, UTI, Recurrent 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 Dermatologic History: Reports: Melanoma - Infectious Disease History Infectious Disease History: Reports: Chicken Pox, Measles, Novel Coronavirus, Rheumatic Fever - Past Surgical History Cardiovascular Surgical History: Reports: Valve Replacement Respiratory Surgical History: Reports: Thoracentesis GI Surgical History: Reports: Appendectomy, Cholecystectomy, Hernia, Abdominal Other GI Surgeries/Procedures: hiatial Female Surgical History: Reports: Oophorectomy Oncologic Surgical History: Reports: Other (See Below) Social & Family History - Family History Family Medical History: No Pertinent Family History - Tobacco Use Tobacco Use Status *Q: Unknown Ever Used Tobacco - Caffeine Use Caffeine Use: Reports: Coffee - Living Situation & Occupation Living situation: Reports: , with Spouse Occupation: Unemployed ED ROS GENERAL - Review of Systems Review Of Systems: See Below Free Text/Narrative/Comment: In addition to that documented in the HPI above, the additional ROS was obtained: Constitutional: Denies fevers or chills Eyes: Denies vision changes ENMT: Denies sore throat CV: Denies chest pain Resp: Denies SOB GI: Denies vomiting or diarrhea : Per HPI MSK: Denies recent trauma Skin: Denies new rashes Neuro: Denies new numbness or tingling or weakness Endocrine: Denies unexpected weight loss Heme: Denies bleeding disorders ED EXAM, GI/ABD - Physical Exam Exam: See Below Text/Narrative:: I have reviewed the triage vital signs Const: Patient is tearful and frequently crying out in pain. Well nourished, well developed, appears stated age Eyes: Pupils Equal and reactive to light bilaterally, no conjunctival injection HENT: No signs of trauma or swelling, Neck supple without meningismus CV: Regular Rate Rhythm, Warm, well-perfused extremities RESP: Unlabored respiratory effort GI: soft, non-tender, non-distended, no masses MSK: No gross deformities appreciated Skin: Warm, dry. No rashes Neuro: Alert, naval engineer II-XII grossly intact. Sensation and motor function of extremities grossly intact. Psych: Anxious mood and affect. Course - Vital Signs Last Recorded V/S: Last Vital Signs Temp 36.4 C 11/13/21 22:00 Pulse 88 11/13/21 22:00 Resp 18 11/13/21 22:00 BP 134/88 11/13/21 22:00 Pulse Ox 98 11/13/21 22:00 - Orders/Labs/Meds Orders: Active Orders 24 hr Category Date Time Status CULTURE URINE [MREF] Stat Lab 11/13/21 22:04 Received Labs: Laboratory Tests 11/13/21 11/13/21 11/13/21 Range/Units 22:04 22:50 22:50 WBC 7.53 (3.98-10.04) K/mm3 RBC 4.72 (3.98-5.22) M/mm3 Hgb 13.6 D (11.2-15.7) gm/dl Hct 42.0 (34.1-44.9) % MCV 89.0 D (79.4-94.8) fl MCH 28.8 (25.6-32.2) pg MCHC 32.4 (32.2-35.5) g/dl RDW Std Deviation 49.5 H (36.4-46.3) fL Plt Count 230 (182-369) K/mm3 MPV 12.3 (9.4-12.3) fl Neut % (Auto) 77.7 H (34.0-71.1) % Lymph % (Auto) 12.5 L (19.3-51.7) % Haines % (Auto) 7.7 (4.7-12.5) % Eos % (Auto) 1.6 (0.7-5.8) Baso % (Auto) 0.4 (0.1-1.2) % Neut # (Auto) 5.85 (1.56-6.13) K/mm3 Lymph # (Auto) 0.94 L (1.18-3.74) K/mm3 Haines # (Auto) 0.58 H (0.24-0.36) K/mm3 Eos # (Auto) 0.12 (0.04-0.36) K/mm3 Baso # (Auto) 0.03 (0.01-0.08) K/mm3 PT (9.7-12.0) SECONDS INR Sodium 139 (136-145) mEq/L Potassium 4.6 (3.5-5.1) mEq/L Chloride 103 (98-107) mEq/L Carbon Dioxide 23 (21-32) mEq/L Anion Gap 17.6 H (5-15) BUN 5 L (7-18) mg/dL Creatinine 0.6 (0.55-1.02) mg/dL Est Cr Clr Drug Dosing TNP Estimated GFR (MDRD) > 60 (>60) mL/min BUN/Creatinine Ratio 8.3 L (14-18) Glucose 103 H (70-99) mg/dL Lactic Acid (0.4-2.0) mmol/L Calcium 8.8 (8.5-10.1) mg/dL Total Bilirubin 1.1 H (0.2-1.0) mg/dL AST 40 H (15-37) U/L ALT 15 (14-59) U/L Alkaline Phosphatase 77 (46-116) U/L Total Protein 6.8 (6.4-8.2) g/dl Albumin 3.7 (3.4-5.0) g/dl Globulin 3.1 gm/dL Albumin/Globulin Ratio 1.2 (1-2) Urine Color Yellow (Yellow) Urine Appearance Slt cloudy H (Clear) Urine pH 7.5 (5.0-8.0) Ur Specific Story 1.020 (1.005-1.030) Urine Protein 2+ H (Negative) Urine Glucose (UA) Negative (Negative) Urine Ketones Negative (Negative) Urine Occult Blood 3+ H (Negative) Urine Nitrite Negative (Negative) Urine Bilirubin Negative (Negative) Urine Urobilinogen 0.2 (0.2-1.0) Ur Leukocyte Esterase 2+ H (Negative) Urine RBC 40-50 H (0-5) /hpf Urine WBC 20-30 H (0-5) /hpf Urine WBC Clumps Few (NOT SEEN) /hpf Ur Squamous Epith Cells 0-5 (0-5) /hpf Urine Bacteria Moderate H (FEW) /hpf Urine Mucus Few (FEW) /hpf 11/13/21 11/13/21 Range/Units 23:20 23:20 WBC (3.98-10.04) K/mm3 RBC (3.98-5.22) M/mm3 Hgb (11.2-15.7) gm/dl Hct (34.1-44.9) % MCV (79.4-94.8) fl MCH (25.6-32.2) pg MCHC (32.2-35.5) g/dl RDW Std Deviation (36.4-46.3) fL Plt Count (182-369) K/mm3 MPV (9.4-12.3) fl Neut % (Auto) (34.0-71.1) % Lymph % (Auto) (19.3-51.7) % Haines % (Auto) (4.7-12.5) % Eos % (Auto) (0.7-5.8) Baso % (Auto) (0.1-1.2) % Neut # (Auto) (1.56-6.13) K/mm3 Lymph # (Auto) (1.18-3.74) K/mm3 Haines # (Auto) (0.24-0.36) K/mm3 Eos # (Auto) (0.04-0.36) K/mm3 Baso # (Auto) (0.01-0.08) K/mm3 PT 38.4 H (9.7-12.0) SECONDS INR 3.64 Sodium (136-145) mEq/L Potassium (3.5-5.1) mEq/L Chloride (98-107) mEq/L Carbon Dioxide (21-32) mEq/L Anion Gap (5-15) BUN (7-18) mg/dL Creatinine (0.55-1.02) mg/dL Est Cr Clr Drug Dosing Estimated GFR (MDRD) (>60) mL/min BUN/Creatinine Ratio (14-18) Glucose (70-99) mg/dL Lactic Acid 0.6 (0.4-2.0) mmol/L Calcium (8.5-10.1) mg/dL Total Bilirubin (0.2-1.0) mg/dL AST (15-37) U/L ALT (14-59) U/L Alkaline Phosphatase (46-116) U/L Total Protein (6.4-8.2) g/dl Albumin (3.4-5.0) g/dl Globulin gm/dL Albumin/Globulin Ratio (1-2) Urine Color (Yellow) Urine Appearance (Clear) Urine pH (5.0-8.0) Ur Specific Story (1.005-1.030) Urine Protein (Negative) Urine Glucose (UA) (Negative) Urine Ketones (Negative) Urine Occult Blood (Negative) Urine Nitrite (Negative) Urine Bilirubin (Negative) Urine Urobilinogen (0.2-1.0) Ur Leukocyte Esterase (Negative) Urine RBC (0-5) /hpf Urine WBC (0-5) /hpf Urine WBC Clumps (NOT SEEN) /hpf Ur Squamous Epith Cells (0-5) /hpf Urine Bacteria (FEW) /hpf Urine Mucus (FEW) /hpf Meds: Medications Discontinued Medications Generic Name Dose Route Start Last Admin Trade Name Freq PRN Reason Stop Dose Admin Cephalexin 500 mg 11/14/21 00:11 11/14/21 00:19 Cephalexin 500 Mg Cap PO 11/14/21 00:12 500 mg ONETIME ONE Administration Lactated Ringer's 1,000 mls @ 1,000 mls/hr 11/13/21 22:16 11/13/21 22:28 Ringers, Lactated IV 11/13/21 23:15 1,000 mls/hr .BOLUS ONE Administration Ketorolac Tromethamine 15 mg 11/13/21 22:30 11/13/21 22:33 Ketorolac 15 Mg/Ml Sdv IVPUSH 11/13/21 22:31 15 mg ONETIME ONE Administration Morphine Sulfate 4 mg 11/13/21 22:16 11/13/21 22:28 Morphine 4 Mg/Ml Syringe IVPUSH 11/13/21 22:17 4 mg ONETIME ONE Administration Ondansetron HCl 4 mg 11/13/21 22:16 11/13/21 22:28 Ondansetron 4 Mg/2 Ml Sdv IVPUSH 11/13/21 22:17 4 mg ONETIME ONE Administration Phenazopyridine HCl Confirm 11/14/21 00:25 Phenazopyridine 95 Mg Tab Administered 11/14/21 00:26 Dose 95 mg .ROUTE .STK-MED ONE Departure - Departure Time of Disposition: 00:13 Disposition: Home, Self-Care 01 Clinical Impression: UTI, Urinary tract infectious disease - Discharge Information Prescriptions: Phenazopyridine [Pyridium] 100 mg PO TID PRN #12 tab PRN Reason: Pain Instructions: Urinary Tract Infection, Adult, [id number] Referrals: Gietzen,Denise, TEAM ASSISTANT [Primary Care Provider] - Forms: ED Department Discharge Sepsis Event Note (ED) - Evaluation Sepsis Screening Result: No Definite Risk - Focused Exam Vital Signs: Vital Signs Temp Pulse Resp BP Pulse Ox 11/13/21 22:00 36.4 C 88 18 134/88 98 - My Orders Last 24 Hours: My Active Orders 11/13/21 22:04 CULTURE URINE [MREF] Stat - Assessment/Plan Last 24 Hours: My Active Orders 11/13/21 22:04 CULTURE URINE [MREF] Stat Assessment:: Patient is a 51-year-old female presented to the emergency room with a complaint of dysuria and bilateral flank pain. Unremarkable ER course. Pain controlled in the emergency room. Laboratory studies reviewed demonstrating evidence of urinary tract infection. There is no evidence of systemic infection based on her laboratory examination and vital signs. Patient will be discharged with oral antibiotics. No indication for imaging at this time. She did have a CT scan several days ago. There is no evidence of kidney stone. All questions were addressed and answered. Patient agrees with plan of care.
[2021-11-14] MEDS ORDERED: Cephalexin 500 MG Cap PO ONE (00:11)
[2021-11-14] MEDS ORDERED: Phenazopyridine 95 MG Tab ONE (00:25)
== END 2021-11-14 00:35 | disposition home or self-care (01) ==
LOC: JD.ED 21:48
DX: N39.0 Urinary tract infection, site not specified (principal); I10 Essential (primary) hypertension; K21.9 Gastro-esophageal reflux disease without esophagitis; Z91.013 Allergy to seafood; Z88.8 Allergy status to other drugs, medicaments and biological substances; Z88.6 Allergy status to analgesic agent; Z91.041 Radiographic dye allergy status; Z79.01 Long term (current) use of anticoagulants; Z79.899 Other long term (current) drug therapy
CPT/HCPCS: 36415; 80053; 81001; 83605; 85025; 85610; 87086; 96374; 96375; 99284; A9270; J1885; J2270; J2405; J7120; 87088; 87186

== ENCOUNTER 2021-12-04 21:48 | Emergency (ER) | payer BC ==
[2021-12-04] MEDS: Clindamycin HCl 150 MG Cap PO ONE (23:00)
[2021-12-04] MEDS: HYDROmorphone 1 MG/ML Syringe IM ONE (23:00)
== END 2021-12-04 23:10 | disposition home or self-care (01) ==
LOC: JD.ED 21:48
DX: K08.89 Other specified disorders of teeth and supporting structures (principal); Z91.041 Radiographic dye allergy status; Z91.018 Allergy to other foods; Z88.8 Allergy status to other drugs, medicaments and biological substances; Z88.0 Allergy status to penicillin; Z72.0 Tobacco use
CPT/HCPCS: 96372; 99282; 99284; A9270-GY; J1170

== ENCOUNTER 2022-03-03 16:18 | Emergency (ER) | payer BC ==
[2022-03-03] MEDS ORDERED: HYDROmorphone 1 MG/ML Syringe IM ONE (18:39)
== END 2022-03-03 21:30 | disposition home or self-care (01) ==
LOC: JD.ED 16:18
DX: M79.605 Pain in left leg (principal); E78.00 Pure hypercholesterolemia, unspecified; I10 Essential (primary) hypertension; K21.9 Gastro-esophageal reflux disease without esophagitis; Z72.0 Tobacco use; Z91.041 Radiographic dye allergy status; Z91.018 Allergy to other foods; Z88.8 Allergy status to other drugs, medicaments and biological substances; Z88.0 Allergy status to penicillin; Z79.01 Long term (current) use of anticoagulants; Z79.899 Other long term (current) drug therapy
CPT/HCPCS: 36415; 80053; 85025; 85610; 93926; 93971; 96372; 99284; J1170; 99283

== ENCOUNTER 2022-04-03 23:38 | Emergency (ER) | payer BC ==
[2022-04-04] MEDS ORDERED: Acetaminophen/HYDROcodone 325-5 MG Tab PO ONE (00:11)
== END 2022-04-04 01:30 | disposition home or self-care (01) ==
LOC: JD.ED 23:38
DX: S90.01XA Contusion of right ankle, initial encounter (principal); I10 Essential (primary) hypertension; K21.9 Gastro-esophageal reflux disease without esophagitis; Z87.891 Personal history of nicotine dependence; Z79.01 Long term (current) use of anticoagulants; Z86.718 Personal history of other venous thrombosis and embolism; Z88.8 Allergy status to other drugs, medicaments and biological substances; Z88.0 Allergy status to penicillin; Z88.1 Allergy status to other antibiotic agents; Z91.013 Allergy to seafood; Z88.6 Allergy status to analgesic agent; Z91.041 Radiographic dye allergy status; W22.8XXA Striking against or struck by other objects, initial encounter
CPT/HCPCS: 73610; 99283; A9270

== ENCOUNTER 2022-06-09 13:10 | Emergency (ER) | payer BC ==
[2022-06-09] MEDS ORDERED: methylPREDNISolone Sodium Succinate 125 MG/2 ML SDV IVPUSH ONE (14:04)
[2022-06-09] MEDS ORDERED: diphenhydrAMINE 50 MG/ML SDV IVPUSH ONE (14:05)
[2022-06-09] MEDS ORDERED: Famotidine 20 MG/2 ML SDV IVPUSH ONE (14:05)
[2022-06-09] MEDS ORDERED: HYDROmorphone 0.5 MG/0.5 ML Syringe IVPUSH ONE (14:10)
[2022-06-09] MEDS ORDERED: Sodium Chloride 0.9% 10 ML Syringe FLUSH PRN (14:21)
[2022-06-09] MEDS ORDERED: Iopamidol 612 MG/ML 100 ML Bottle IVPUSH ONE (14:21)
== END 2022-06-09 16:32 | disposition home or self-care (01) ==
LOC: JD.ED 13:10
DX: S16.1XXA Strain of muscle, fascia and tendon at neck level, initial encounter (principal); S40.011A Contusion of right shoulder, initial encounter; S70.12XA Contusion of left thigh, initial encounter; R10.9 Unspecified abdominal pain; R07.89 Other chest pain; Z88.8 Allergy status to other drugs, medicaments and biological substances; Z91.013 Allergy to seafood; Z91.041 Radiographic dye allergy status; Z91.018 Allergy to other foods; Z88.0 Allergy status to penicillin; Z79.01 Long term (current) use of anticoagulants; Z79.899 Other long term (current) drug therapy; W10.9XXA Fall (on) (from) unspecified stairs and steps, initial encounter
CPT/HCPCS: 36415; 70450; 71260; 72125; 74177; 80053; 80307; 85025; 85610; 85730; 96374; 96375; 99284; J1170; J1200; J2930; J3490; Q9967

== ENCOUNTER 2022-07-01 15:47 | Emergency (ER) | payer BC ==
[2022-07-01] MEDS ORDERED: Acetaminophen/oxyCODONE 325-5 MG Tab PO ONE (16:22)
[2022-07-01] MEDS ORDERED: LORazepam 1 MG Tab PO ONE (16:23)
[2022-07-01] MEDS ORDERED: Ondansetron 4 MG Tab.DIS PO ONE (16:23)
== END 2022-07-01 19:20 | disposition other institution (70) ==
LOC: JD.ED 15:47
DX: T74.11XA Adult physical abuse, confirmed, initial encounter (principal); S20.222A Contusion of left back wall of thorax, initial encounter; S50.11XA Contusion of right forearm, initial encounter; I10 Essential (primary) hypertension; Z88.6 Allergy status to analgesic agent; Z88.8 Allergy status to other drugs, medicaments and biological substances; Z91.013 Allergy to seafood; Z91.041 Radiographic dye allergy status; Z88.0 Allergy status to penicillin; Z86.16 Personal history of COVID-19; Z90.49 Acquired absence of other specified parts of digestive tract; Y04.0XXA Assault by unarmed brawl or fight, initial encounter
CPT/HCPCS: 36415; 71250; 72125; 85025; 85610; 99285; A9270

== ENCOUNTER 2022-07-02 19:50 | Emergency (ER) | payer BC ==
[2022-07-02] MEDS ORDERED: Sodium Chloride 0.9% 10 ML Syringe FLUSH PRN (21:01)
[2022-07-02] MEDS ORDERED: HYDROmorphone 0.5 MG/0.5 ML Syringe IVPUSH ONE (21:34)
[2022-07-02] MEDS ORDERED: Ondansetron 4 MG/2 ML SDV IVPUSH ONE (21:42)
[2022-07-02] MEDS ORDERED: methylPREDNISolone Sodium Succinate 125 MG/2 ML SDV IVPUSH ONE (22:28)
== END 2022-07-02 22:50 | disposition home or self-care (01) ==
LOC: JD.ED 19:50
DX: S20.212A Contusion of left front wall of thorax, initial encounter (principal); E78.00 Pure hypercholesterolemia, unspecified; I10 Essential (primary) hypertension; K21.9 Gastro-esophageal reflux disease without esophagitis; F17.210 Nicotine dependence, cigarettes, uncomplicated; Z88.8 Allergy status to other drugs, medicaments and biological substances; Z91.041 Radiographic dye allergy status; Z91.018 Allergy to other foods; Z88.0 Allergy status to penicillin; Z79.01 Long term (current) use of anticoagulants; Z79.899 Other long term (current) drug therapy; W22.09XA Striking against other stationary object, initial encounter
CPT/HCPCS: 36415; 71045; 80053; 85025; 85379; 93005; 96374; 96375; 99285; J1170; J2405; J2930; J3490; 93010; 99283

== ENCOUNTER 2022-07-12 09:51 | Emergency (ER) | payer BC ==
[2022-07-12] MEDS ORDERED: predniSONE 10 MG Tab PO ONE (11:31)
== END 2022-07-12 12:05 | disposition home or self-care (01) ==
LOC: JD.ED 09:51
DX: R21 Rash and other nonspecific skin eruption (principal); T36.8X5A Adverse effect of other systemic antibiotics, initial encounter; K21.9 Gastro-esophageal reflux disease without esophagitis; E78.00 Pure hypercholesterolemia, unspecified; I10 Essential (primary) hypertension; F17.210 Nicotine dependence, cigarettes, uncomplicated; Z86.16 Personal history of COVID-19; Z91.018 Allergy to other foods; Z91.041 Radiographic dye allergy status; Z88.8 Allergy status to other drugs, medicaments and biological substances; Z88.0 Allergy status to penicillin; Z88.1 Allergy status to other antibiotic agents; Z79.01 Long term (current) use of anticoagulants; Z79.899 Other long term (current) drug therapy
CPT/HCPCS: 99283; J7512; 99282

== ENCOUNTER 2022-09-02 12:25 | Emergency (ER) | payer BC | END 2022-09-02 14:08 | disposition left against medical advice (07) | LOC: JD.ED 12:25 | DX: Z53.21 Procedure and treatment not carried out due to patient leaving prior to being seen by health care provider (principal) ==

== ENCOUNTER 2022-09-20 21:11 | Emergency (ER) | payer BC ==
[2022-09-20] MEDS ORDERED: HYDROmorphone 1 MG/ML Syringe IM ONE (21:50)
== END 2022-09-20 22:21 | disposition home or self-care (01) ==
LOC: JD.ED 21:11
DX: K08.89 Other specified disorders of teeth and supporting structures (principal); F17.210 Nicotine dependence, cigarettes, uncomplicated; Z88.6 Allergy status to analgesic agent; Z88.8 Allergy status to other drugs, medicaments and biological substances; Z91.013 Allergy to seafood; Z91.041 Radiographic dye allergy status; Z88.0 Allergy status to penicillin; Z88.2 Allergy status to sulfonamides; Z79.01 Long term (current) use of anticoagulants; Z79.899 Other long term (current) drug therapy; Z86.16 Personal history of COVID-19; Z90.49 Acquired absence of other specified parts of digestive tract
CPT/HCPCS: 96372; 99282; J1170

== ENCOUNTER 2023-02-22 18:02 | Emergency (ER) | payer BC ==
[2023-02-22] MEDS ORDERED: diphenhydrAMINE 50 MG/ML SDV IVPUSH ONE (18:14)
[2023-02-22] MEDS ORDERED: diphenhydrAMINE 50 MG/ML SDV ONE (18:15)
[2023-02-22] MEDS ORDERED: methylPREDNISolone Sodium Succinate 125 MG/2 ML SDV IVPUSH ONE (18:35)
[2023-02-22] MEDS ORDERED: Famotidine 20 MG/2 ML SDV IVPUSH ONE (18:35)
[2023-02-22] MEDS ORDERED: Famotidine 20 MG/2 ML SDV ONE (18:36)
[2023-02-22] MEDS ORDERED: methylPREDNISolone Sodium Succinate 125 MG/2 ML SDV ONE (18:36)
[2023-02-22] MEDS ORDERED: Ondansetron 4 MG/2 ML SDV ONE (18:37)
[2023-02-22] MEDS ORDERED: Ondansetron 4 MG/2 ML SDV IVPUSH ONE (18:37)
[2023-02-22] MEDS ORDERED: Iopamidol 755 Mg/ML 100 ML Bottle IVPUSH ONE (18:40)
[2023-02-22] MEDS ORDERED: Sodium Chloride 0.9% 100 ML IV SCH (18:45)
== END 2023-02-22 20:20 | disposition home or self-care (01) ==
LOC: JD.ED 18:02
DX: T78.40XA Allergy, unspecified, initial encounter (principal); R20.0 Anesthesia of skin; G89.29 Other chronic pain; R51.9 Headache, unspecified; R79.1 Abnormal coagulation profile; K21.9 Gastro-esophageal reflux disease without esophagitis; I10 Essential (primary) hypertension; Z86.16 Personal history of COVID-19; Z86.73 Personal history of transient ischemic attack (TIA), and cerebral infarction without residual deficits; Z86.711 Personal history of pulmonary embolism; Z79.01 Long term (current) use of anticoagulants; Z79.899 Other long term (current) drug therapy; Z91.013 Allergy to seafood; Z88.8 Allergy status to other drugs, medicaments and biological substances; Z88.6 Allergy status to analgesic agent; Z91.041 Radiographic dye allergy status; Z88.0 Allergy status to penicillin; Z88.2 Allergy status to sulfonamides
CPT/HCPCS: 36415; 70450; 70496; 70498; 80053; 82947; 84484; 85025; 85379; 85610; 85730; 93005; 96374; 96375; 99285; J1200; J2405; J2930; J3490; Q9967; 93010; 99284

== ENCOUNTER 2023-03-20 18:02 | Emergency (ER) | payer BC ==
[2023-03-20 19:10] LABS: BASOPHILS ABSOLUTE AUTO 0.06 K/mm3 (0.01-0.08); BASOPHILS PERCENT AUTO 0.8 % (0.1-1.2); EOSINOPHILS ABSOLUTE AUTO 0.37 K/mm3 (0.04-0.36); EOSINOPHILS PERCENT AUTO 5.2 (0.7-5.8); HEMATOCRIT 45.2 % (34.1-44.9); HEMOGLOBIN 14.6 gm/dl (11.2-15.7); IMMATURE GRAN ABSOLUTE AUTO 0.01 K/mm3 (0.00-0.10); IMMATURE GRAN PERCENT AUTO 0.1 % (<=1.0); LYMPHOCYTES ABSOLUTE AUTO 1.58 K/mm3 (1.18-3.74); LYMPHOCYTES PERCENT AUTO 22.3 % (19.3-51.7); MEAN CORPUSCULAR HEMOGLOBIN 28.3 pg (25.6-32.2); MEAN CORPUSCULAR HGB CONC 32.3 g/dl (32.2-35.5); MEAN CORPUSCULAR VOLUME 87.6 fl (79.4-94.8); MONOCYTES ABSOLUTE AUTO 0.59 K/mm3 (0.24-0.36); MONOCYTES PERCENT AUTO 8.3 % (4.7-12.5); NEUTROPHILS ABSOLUTE AUTO 4.48 K/mm3 (1.56-6.13); NEUTROPHILS PERCENT AUTO 63.3 % (34.0-71.1); PLATELET COUNT,PLT 224 K/mm3 (182-369); RED BLOOD CELL COUNT 5.16 M/mm3 (3.98-5.22); WHITE BLOOD CELL COUNT,WBC 7.09 K/mm3 (3.98-10.04)
[2023-03-20] MEDS ORDERED: Acetaminophen/oxyCODONE 325-5 MG Tab PO ONE (19:12)
[2023-03-20 19:29] LABS: INR 1.7; PROTHROMBIN TIME 17.5 SECONDS (9.7-12.0)
[2023-03-20 19:36] LABS: D-DIMER QUANTITATIVE 0.72 mg/L (0.19-0.50)
[2023-03-20 19:39] LABS: A/G RATIO 0.9 (1-2); ALBUMIN 3.6 g/dl (3.4-5.0); ANION GAP 11.4 (5-15); BILIRUBIN TOTAL 0.8 mg/dL (0.2-1.0); CALCIUM 8.9 mg/dL (8.5-10.1); EST CRCL DRUG DOSING (CG) 50.86 mL/min; MAGNESIUM 1.9 mg/dL (1.8-2.4); POTASSIUM,K 4.4 mEq/L (3.5-5.1); PROTEIN TOTAL,TP 7.6 g/dl (6.4-8.2)
[2023-03-20] MEDS ORDERED: diphenhydrAMINE 50 MG/ML SDV IVPUSH ONE (19:43)
[2023-03-20] MEDS ORDERED: methylPREDNISolone Sodium Succinate 125 MG/2 ML SDV IVPUSH ONE (19:44)
[2023-03-20] MEDS ORDERED: Iopamidol 755 Mg/ML 100 ML Bottle IVPUSH ONE (21:07)
[2023-03-20] MEDS ORDERED: Sodium Chloride 0.9% 1,000 ML IV ONE (21:10)
[2023-03-20] MEDS ORDERED: Sodium Chloride 0.9% 100 ML IV SCH (21:15)
[2023-03-20] MEDS ORDERED: Ondansetron 4 MG in Sodium Chloride 0.9% 50 ML IV ONE (21:53)
[2023-03-20] MEDS ORDERED: Morphine 2 MG/ML SYRINGE IVPUSH ONE ×2 (21:53→22:37)
[2023-03-20] MEDS ORDERED: Ondansetron 4 MG/2 ML SDV IVPUSH ONE (21:59)
[2023-03-20] MEDS ORDERED: Nitroglycerin 0.4 MG Tab.SL SL ONE (22:07)
[2023-03-20] MEDS ORDERED: Heparin Sodium 5,000 Units/ML Vial IVPUSH ONE ×3 (22:08→22:30)
[2023-03-20] MEDS ORDERED: Heparin Sodium/D5W 25,000 UNITS/500 ML BAG IV SCH (22:15)
== END 2023-03-21 01:12 | disposition home or self-care (01) ==
LOC: JD.ED 18:02
DX: I21.29 ST elevation (STEMI) myocardial infarction involving other sites (principal); K21.9 Gastro-esophageal reflux disease without esophagitis; J98.11 Atelectasis; R06.02 Shortness of breath; Z20.822 Contact with and (suspected) exposure to COVID-19; Z72.0 Tobacco use; Z86.16 Personal history of COVID-19; Z88.8 Allergy status to other drugs, medicaments and biological substances; Z91.041 Radiographic dye allergy status; Z91.018 Allergy to other foods; Z88.5 Allergy status to narcotic agent; Z91.013 Allergy to seafood; Z88.1 Allergy status to other antibiotic agents; Z79.01 Long term (current) use of anticoagulants; Z79.899 Other long term (current) drug therapy; Z95.2 Presence of prosthetic heart valve; Z90.49 Acquired absence of other specified parts of digestive tract
CPT/HCPCS: 36415; 71046; 71046-26; 71275; 71275-26; 80053; 80061; 82553; 83605; 83735; 83880; 84484; 85025; 85379; 85610; 85652; 86140; 93005; 93010; 96361; 96365; 96366; 96375; 96376; 99285; 99285-25; A9270-GY; J1200; J1644; J2270; J2405; J2930; J3490; J7030; Q9967; U0002

== ENCOUNTER 2023-05-09 00:10 | Emergency (ER) | payer BC ==
[2023-05-09] MEDS ORDERED: Cetirizine 10 MG Tab PO ONE (00:51)
[2023-05-09] MEDS ORDERED: Acetaminophen 325 MG Tab PO ONE (00:51)
[2023-05-09 04:57] LABS: ALBUMIN 3.6 g/dl (3.4-5.0); BILIRUBIN TOTAL 0.6 mg/dL (0.2-1.0); CALCIUM 8.7 mg/dL (8.5-10.1); CREATININE 0.7 mg/dL (0.55-1.02); EST CRCL DRUG DOSING (CG) 79.34 mL/min; MAGNESIUM 1.7 mg/dL (1.8-2.4)
[2023-05-09 05:16] LABS: PROTEIN TOTAL,TP 7.3 g/dl (6.4-8.2)
[2023-05-09 05:17] LABS: INR 1.47; PROTHROMBIN TIME 15.3 SECONDS (9.7-12.0); PTT,PARTIAL THROMBOPLSTIN TIME 30.5 SECONDS (21.7-31.4)
[2023-05-09 05:31] LABS: HEMOGLOBIN 13.3 gm/dl (11.2-15.7); MEAN CORPUSCULAR HEMOGLOBIN 28.7 pg (25.6-32.2); MEAN CORPUSCULAR HGB CONC 32.4 g/dl (32.2-35.5); MEAN CORPUSCULAR VOLUME 88.4 fl (79.4-94.8); MEAN PLATELET VOLUME 11.6 fl (9.4-12.3); PLATELET COUNT,PLT 273 K/mm3 (182-369); RED BLOOD CELL COUNT 4.64 M/mm3 (3.98-5.22)
[2023-05-09 05:32] LABS: BASOPHILS ABSOLUTE AUTO 0.05 K/mm3 (0.01-0.08); BASOPHILS PERCENT AUTO 0.8 % (0.1-1.2); EOSINOPHILS ABSOLUTE AUTO 0.15 K/mm3 (0.04-0.36); EOSINOPHILS PERCENT AUTO 2.3 (0.7-5.8); LYMPHOCYTES ABSOLUTE AUTO 2.48 K/mm3 (1.18-3.74); LYMPHOCYTES PERCENT AUTO 38.8 % (19.3-51.7); MONOCYTES ABSOLUTE AUTO 0.29 K/mm3 (0.24-0.36); MONOCYTES PERCENT AUTO 4.5 % (4.7-12.5); NEUTROPHILS ABSOLUTE AUTO 3.43 K/mm3 (1.56-6.13); NEUTROPHILS PERCENT AUTO 53.6 % (34.0-71.1)
== END 2023-05-09 05:19 | disposition home or self-care (01) ==
LOC: JD.ED 00:10
DX: R07.89 Other chest pain (principal); R73.9 Hyperglycemia, unspecified; E78.00 Pure hypercholesterolemia, unspecified; I10 Essential (primary) hypertension; K21.9 Gastro-esophageal reflux disease without esophagitis; F17.210 Nicotine dependence, cigarettes, uncomplicated; Z86.16 Personal history of COVID-19; Z88.8 Allergy status to other drugs, medicaments and biological substances; Z91.041 Radiographic dye allergy status; Z91.018 Allergy to other foods; Z91.013 Allergy to seafood; Z88.1 Allergy status to other antibiotic agents; Z88.5 Allergy status to narcotic agent; Z79.01 Long term (current) use of anticoagulants; Z79.899 Other long term (current) drug therapy
CPT/HCPCS: 36415; 71046; 80053; 83735; 83880; 84484; 85025; 85610; 85730; 93005; 99285; A9270

== ENCOUNTER 2023-05-14 16:29 | Emergency (ER) | payer BC ==
[2023-05-14] MEDS ORDERED: Sodium Chloride 0.9% 10 ML Syringe FLUSH PRN (16:46)
[2023-05-14] MEDS ORDERED: Metoclopramide 10 MG/2 ML SDV IVPUSH ONE (17:00)
[2023-05-14] MEDS ORDERED: Dextrose 5%-0.9% NaCl 1,000 ML IV SCH (17:00)
[2023-05-14] MEDS ORDERED: HYDROmorphone 0.5 MG/0.5 ML Syringe IVPUSH ONE (17:00)
[2023-05-14 17:18] LABS: BASOPHILS ABSOLUTE AUTO 0.05 K/mm3 (0.01-0.08); BASOPHILS PERCENT AUTO 0.9 % (0.1-1.2); EOSINOPHILS ABSOLUTE AUTO 0.14 K/mm3 (0.04-0.36); EOSINOPHILS PERCENT AUTO 2.6 (0.7-5.8); HEMATOCRIT 40.9 % (34.1-44.9); HEMOGLOBIN 13.2 gm/dl (11.2-15.7); LYMPHOCYTES ABSOLUTE AUTO 1.86 K/mm3 (1.18-3.74); LYMPHOCYTES PERCENT AUTO 35.1 % (19.3-51.7); MEAN CORPUSCULAR HEMOGLOBIN 29.1 pg (25.6-32.2); MEAN CORPUSCULAR HGB CONC 32.3 g/dl (32.2-35.5); MEAN CORPUSCULAR VOLUME 90.1 fl (79.4-94.8); MEAN PLATELET VOLUME 11.1 fl (9.4-12.3); MONOCYTES ABSOLUTE AUTO 0.39 K/mm3 (0.24-0.36); MONOCYTES PERCENT AUTO 7.4 % (4.7-12.5); NEUTROPHILS ABSOLUTE AUTO 2.86 K/mm3 (1.56-6.13); PLATELET COUNT,PLT 236 K/mm3 (182-369); RED BLOOD CELL COUNT 4.54 M/mm3 (3.98-5.22)
[2023-05-14 17:36] LABS: INR 1.42; PROTHROMBIN TIME 14.8 SECONDS (9.7-12.0)
[2023-05-14 17:48] LABS: ALBUMIN 3.7 g/dl (3.4-5.0); ANION GAP 11.8 (5-15); BILIRUBIN TOTAL 0.3 mg/dL (0.2-1.0); BUN/CREATININE RATIO 12.9 (14-18); CALCIUM 8.9 mg/dL (8.5-10.1); CREATININE 0.7 mg/dL (0.55-1.02); EST CRCL DRUG DOSING (CG) 102.69 mL/min; POTASSIUM,K 4.8 mEq/L (3.5-5.1); PROTEIN TOTAL,TP 7.5 g/dl (6.4-8.2); TSH 0.868 uIU/mL (0.358-3.74)
== END 2023-05-14 19:04 | disposition home or self-care (01) ==
LOC: JD.ED 16:29
DX: G43.409 Hemiplegic migraine, not intractable, without status migrainosus (principal); I48.0 Paroxysmal atrial fibrillation; E78.00 Pure hypercholesterolemia, unspecified; K21.9 Gastro-esophageal reflux disease without esophagitis; I10 Essential (primary) hypertension; Z86.16 Personal history of COVID-19; Z79.01 Long term (current) use of anticoagulants; Z79.899 Other long term (current) drug therapy; Z88.6 Allergy status to analgesic agent; Z88.8 Allergy status to other drugs, medicaments and biological substances; Z91.013 Allergy to seafood; Z91.041 Radiographic dye allergy status; Z88.0 Allergy status to penicillin; Z88.1 Allergy status to other antibiotic agents
CPT/HCPCS: 36415; 70450; 80053; 82947; 84443; 85025; 85610; 93005; 96361; 96374; 96375; 99285; J1170; J2765; J7042; 93010; 99284

== ENCOUNTER 2023-07-27 15:26 | Emergency (ER) | payer BC ==
[2023-07-27] MEDS ORDERED: Ondansetron 4 MG/2 ML SDV IVPUSH ONE (16:08)
[2023-07-27] MEDS ORDERED: HYDROmorphone 0.5 MG/0.5 ML Syringe IVPUSH ONE (16:08)
[2023-07-27] MEDS ORDERED: LORazepam 2 MG/ML SDV IVPUSH STA (16:08)
[2023-07-27 16:19] LABS: BASOPHILS ABSOLUTE AUTO 0.1 K/mm3 (0.0-0.2); BASOPHILS PERCENT AUTO 0.8 % (0.0-1.0); EOSINOPHILS ABSOLUTE AUTO 0.1 K/mm3 (0.0-0.4); EOSINOPHILS PERCENT AUTO 1.5 % (0.0-6.0); HEMOGLOBIN 14.6 gm/dl (12.0-16.0); IMMATURE GRAN ABSOLUTE AUTO 0.03 K/mm3 (0.00-0.05); IMMATURE GRAN PERCENT AUTO 0.4 % (0.0-0.4); LYMPHOCYTES ABSOLUTE AUTO 3.2 K/mm3 (1.0-4.8); LYMPHOCYTES PERCENT AUTO 39.9 % (24.0-44.0); MEAN CORPUSCULAR HEMOGLOBIN 28.1 pg (28.0-32.0); MEAN CORPUSCULAR HGB CONC 31.7 g/dl (32.0-36.0); MEAN CORPUSCULAR VOLUME 88.5 fl (83.0-99.0); MEAN PLATELET VOLUME 11.5 fl (9.4-12.3); MONOCYTES ABSOLUTE AUTO 0.6 K/mm3 (0.0-0.8); MONOCYTES PERCENT AUTO 7.5 % (0.0-8.0); NEUTROPHILS PERCENT AUTO 49.9 % (41.0-71.0); PLATELET COUNT,PLT 276 K/mm3 (150-400); WHITE BLOOD CELL COUNT,WBC 7.91 K/mm3 (3.9-11.3)
[2023-07-27 16:30] LABS: INR 1.77; PROTHROMBIN TIME 18.2 SECONDS (9.7-12.0)
[2023-07-27 16:31] LABS: D-DIMER QUANTITATIVE 0.4 mg/L (0.19-0.50)
[2023-07-27 16:48] LABS: A/G RATIO 1.1 (1-2); ALANINE AMINOTRANSFERASE,ALT 25 U/L (14-59); ALKALINE PHOSPHATASE 81 U/L (46-116); ANION GAP 13.7 (5-15); ASPARTATE AMNIOTRANSFERASE,AST 26 U/L (15-37); BILIRUBIN TOTAL 0.4 mg/dL (0.2-1.0); BLOOD UREA NITROGEN,BUN 11 mg/dL (7-18); BUN/CREATININE RATIO 13.8 (14-18); CARBON DIOXIDE,CO2 26 mEq/L (21-32); CHLORIDE,CL 105 mEq/L (98-107); CREATININE 0.8 mg/dL (0.55-1.02); EST CRCL DRUG DOSING (CG) 69.42 mL/min; ESTIMATED GFR 88 mL/min (>60); GLUCOSE RANDOM 90 mg/dL (70-99); MAGNESIUM 2.1 mg/dL (1.8-2.4); POTASSIUM,K 3.7 mEq/L (3.5-5.1); PROTEIN TOTAL,TP 7.6 g/dl (6.4-8.2); SODIUM,NA 141 mEq/L (136-145)
[2023-07-27 16:49] LABS: TROPONIN I HIGH SENSITIVITY < 4 pg/mL (<=51)
[2023-07-27] MEDS ORDERED: Enoxaparin 60 MG/0.6 ML Syringe SUBCUT ONE (17:58)
== END 2023-07-27 18:55 | disposition home or self-care (01) ==
LOC: JD.ED 15:26
DX: R07.89 Other chest pain (principal); R79.1 Abnormal coagulation profile; E78.00 Pure hypercholesterolemia, unspecified; I10 Essential (primary) hypertension; K21.9 Gastro-esophageal reflux disease without esophagitis; Z79.01 Long term (current) use of anticoagulants; Z86.16 Personal history of COVID-19; Z88.8 Allergy status to other drugs, medicaments and biological substances; Z91.013 Allergy to seafood; Z88.6 Allergy status to analgesic agent; Z91.041 Radiographic dye allergy status; Z88.0 Allergy status to penicillin; Z88.2 Allergy status to sulfonamides; Z88.1 Allergy status to other antibiotic agents; Z79.899 Other long term (current) drug therapy
CPT/HCPCS: 36415; 71045; 80053; 83735; 83880; 84484; 85025; 85379; 85610; 85730; 93005; 96372; 96374; 96375; 99285; J1170; J1650; J2060; J2405

== ENCOUNTER 2023-07-28 15:48 | Emergency (ER) | payer BC ==
[2023-07-28 17:22] LABS: INR 1.84; PROTHROMBIN TIME 18.8 SECONDS (9.7-12.0)
== END 2023-07-28 17:45 | disposition home or self-care (01) ==
LOC: JD.ED 15:48
DX: R07.89 Other chest pain (principal); F17.210 Nicotine dependence, cigarettes, uncomplicated; Z76.5 Malingerer [conscious simulation]; Z86.16 Personal history of COVID-19; E78.00 Pure hypercholesterolemia, unspecified; I10 Essential (primary) hypertension; K21.9 Gastro-esophageal reflux disease without esophagitis; E11.9 Type 2 diabetes mellitus without complications; Z86.718 Personal history of other venous thrombosis and embolism; Z79.01 Long term (current) use of anticoagulants; Z88.0 Allergy status to penicillin; Z88.1 Allergy status to other antibiotic agents; Z88.2 Allergy status to sulfonamides; Z88.8 Allergy status to other drugs, medicaments and biological substances; Z88.5 Allergy status to narcotic agent; Z88.6 Allergy status to analgesic agent; Z91.013 Allergy to seafood; Z91.041 Radiographic dye allergy status; Z79.899 Other long term (current) drug therapy
CPT/HCPCS: 36415; 85610; 99284

== ENCOUNTER 2023-10-31 16:55 | Emergency (ER) | payer BC ==
[2023-10-31 17:49] LABS: BASOPHILS ABSOLUTE AUTO 0.1 K/mm3 (0.0-0.2); BASOPHILS PERCENT AUTO 0.9 % (0.0-1.0); EOSINOPHILS ABSOLUTE AUTO 0.1 K/mm3 (0.0-0.4); EOSINOPHILS PERCENT AUTO 1.1 % (0.0-6.0); HEMATOCRIT 44.1 % (37.0-47.0); HEMOGLOBIN 14.1 gm/dl (12.0-16.0); IMMATURE GRAN ABSOLUTE AUTO 0.02 K/mm3 (0.00-0.05); IMMATURE GRAN PERCENT AUTO 0.3 % (0.0-0.4); LYMPHOCYTES ABSOLUTE AUTO 1.2 K/mm3 (1.0-4.8); LYMPHOCYTES PERCENT AUTO 15.7 % (24.0-44.0); MEAN CORPUSCULAR HEMOGLOBIN 28.2 pg (28.0-32.0); MEAN CORPUSCULAR VOLUME 88.2 fl (83.0-99.0); MEAN PLATELET VOLUME 11.1 fl (9.4-12.3); MONOCYTES ABSOLUTE AUTO 0.6 K/mm3 (0.0-0.8); MONOCYTES PERCENT AUTO 7.6 % (0.0-8.0); NEUTROPHILS ABSOLUTE AUTO 5.6 K/mm3 (1.8-7.7); NEUTROPHILS PERCENT AUTO 74.4 % (41.0-71.0); PLATELET COUNT,PLT 227 K/mm3 (150-400); WHITE BLOOD CELL COUNT,WBC 7.53 K/mm3 (3.9-11.3)
[2023-10-31 17:56] LABS: INR 3.85; PROTHROMBIN TIME 37.3 SECONDS (9.7-12.0)
[2023-10-31 17:57] LABS: D-DIMER QUANTITATIVE 0.24 mg/L (0.19-0.50)
[2023-10-31 18:01] LABS: A/G RATIO 0.9 (1-2); ALANINE AMINOTRANSFERASE,ALT 24 U/L (14-59); ALBUMIN 3.7 g/dl (3.4-5.0); ALKALINE PHOSPHATASE 96 U/L (46-116); ANION GAP 14.1 (5-15); ASPARTATE AMNIOTRANSFERASE,AST 26 U/L (15-37); BILIRUBIN TOTAL 0.5 mg/dL (0.2-1.0); BLOOD UREA NITROGEN,BUN 18 mg/dL (7-18); CALCIUM 9.1 mg/dL (8.5-10.1); CARBON DIOXIDE,CO2 26 mEq/L (21-32); CHLORIDE,CL 101 mEq/L (98-107); CREATININE 0.9 mg/dL (0.55-1.02); ESTIMATED GFR 76 mL/min (>60); GLUCOSE RANDOM 95 mg/dL (70-99); MAGNESIUM 2.1 mg/dL (1.8-2.4); POTASSIUM,K 4.1 mEq/L (3.5-5.1); PROTEIN TOTAL,TP 7.8 g/dl (6.4-8.2); SODIUM,NA 137 mEq/L (136-145)
[2023-10-31 18:04] LABS: TROPONIN I HIGH SENSITIVITY < 4 pg/mL (<=51)
[2023-10-31] MEDS: Albuterol 6.7 GM Inhaler INH ONE (19:22)
[2023-10-31] MEDS: predniSONE 20 MG Tab PO ONE (19:25)
[2023-10-31] MEDS: traMADol 50 MG Tab PO ONE (19:25)
[2023-10-31] MEDS: Sodium Chloride 0.9% 10 ML Syringe FLUSH PRN (19:26)
== END 2023-10-31 19:20 | disposition home or self-care (01) ==
LOC: JD.ED 16:55
DX: J40 Bronchitis, not specified as acute or chronic (principal); I10 Essential (primary) hypertension; E78.00 Pure hypercholesterolemia, unspecified; K21.9 Gastro-esophageal reflux disease without esophagitis; F17.210 Nicotine dependence, cigarettes, uncomplicated; Z86.16 Personal history of COVID-19; Z79.01 Long term (current) use of anticoagulants; Z88.1 Allergy status to other antibiotic agents; Z88.2 Allergy status to sulfonamides; Z88.6 Allergy status to analgesic agent; Z91.013 Allergy to seafood; Z91.048 Other nonmedicinal substance allergy status; Z88.8 Allergy status to other drugs, medicaments and biological substances; Z79.899 Other long term (current) drug therapy
CPT/HCPCS: 36415; 71045; 71045-26; 80053; 83735; 83880; 84484; 85025; 85379; 85610; 93005; 93010; 99284; 99285; A9270-GY; J3490; J7512

== ENCOUNTER 2024-01-02 10:17 | Emergency (ER) | payer BC ==
[2024-01-02 10:55] LABS: BASOPHILS ABSOLUTE AUTO 0.1 K/mm3 (0.0-0.2); BASOPHILS PERCENT AUTO 0.6 % (0.0-1.0); EOSINOPHILS ABSOLUTE AUTO 0.1 K/mm3 (0.0-0.4); EOSINOPHILS PERCENT AUTO 1.7 % (0.0-6.0); HEMATOCRIT 45.6 % (37.0-47.0); HEMOGLOBIN 15.2 gm/dl (12.0-16.0); IMMATURE GRAN ABSOLUTE AUTO 0.01 K/mm3 (0.00-0.05); IMMATURE GRAN PERCENT AUTO 0.1 % (0.0-0.4); LYMPHOCYTES ABSOLUTE AUTO 2.2 K/mm3 (1.0-4.8); LYMPHOCYTES PERCENT AUTO 28.7 % (24.0-44.0); MEAN CORPUSCULAR HEMOGLOBIN 28.6 pg (28.0-32.0); MEAN CORPUSCULAR HGB CONC 33.3 g/dl (32.0-36.0); MEAN CORPUSCULAR VOLUME 85.7 fl (83.0-99.0); MEAN PLATELET VOLUME 10.9 fl (9.4-12.3); MONOCYTES ABSOLUTE AUTO 0.5 K/mm3 (0.0-0.8); MONOCYTES PERCENT AUTO 6.2 % (0.0-8.0); NEUTROPHILS ABSOLUTE AUTO 4.9 K/mm3 (1.8-7.7); NEUTROPHILS PERCENT AUTO 62.7 % (41.0-71.0); PLATELET COUNT,PLT 297 K/mm3 (150-400); RED BLOOD CELL COUNT 5.32 M/mm3 (4.10-5.30); WHITE BLOOD CELL COUNT,WBC 7.78 K/mm3 (3.9-11.3)
[2024-01-02] MEDS: HYDROmorphone 0.5 MG/0.5 ML Syringe IVPUSH ONE (11:16)
[2024-01-02] MEDS: Ondansetron 4 MG/2 ML SDV IVPUSH ONE (11:16)
[2024-01-02] MEDS: Sodium Chloride 0.9% 1,000 ML IV SCH (11:17)
[2024-01-02 11:40] LABS: A/G RATIO 1.2 (1-2); ALBUMIN 4.3 g/dl (3.4-5.0); ANION GAP 14.8 (5-15); BILIRUBIN TOTAL 0.7 mg/dL (0.2-1.0); BUN/CREATININE RATIO 17.1 (14-18); CALCIUM 9.1 mg/dL (8.5-10.1); CREATININE 0.7 mg/dL (0.55-1.02); EST CRCL DRUG DOSING (CG) 78.41 mL/min; POTASSIUM,K 3.8 mEq/L (3.5-5.1); PROTEIN TOTAL,TP 7.8 g/dl (6.4-8.2)
[2024-01-02 11:41] LABS: APPEARANCE,URINE SLT CLOUDY (Clear); BILIRUBIN,URINE 1+ (Negative); COLOR,URINE YELLOW (Yellow); GLUCOSE,URINE NEGATIVE (Negative); KETONES,URINE TRACE (Negative); LEUKOCYTE ESTERASE,URINE NEGATIVE (Negative); NITRITE,URINE NEGATIVE (Negative); OCCULT BLOOD,URINE NEGATIVE (Negative); PROTEIN,URINE TRACE (Negative); UROBILINOGEN,URINE 0.2 (0.2-1.0)
[2024-01-02 11:48] LABS: BACTERIA,URINE FEW /hpf (FEW); EPITHELIAL CELLS,URINE 0-5 /hpf (0-5); MUCUS,URINE MANY /hpf (FEW); RBC,URINE 0-5 /hpf (0-5); WBC,URINE 0-5 /hpf (0-5)
[2024-01-02] MEDS: Sodium Chloride 0.9% 10 ML Syringe FLUSH PRN (11:57)
[2024-01-02 12:00] LABS: CORONAVIRUS COVID-19 NAA NEGATIVE (NEGATIVE); INFLUENZA A NAA NEGATIVE (NEGATIVE); RESPIRATORY SYNCYTIAL VIR NAA NEGATIVE (NEGATIVE)
[2024-01-02 13:17] LABS: INR 2.88; PROTHROMBIN TIME 28.5 SECONDS (9.7-12.0)
[2024-01-02 13:20] LABS: D-DIMER QUANTITATIVE < 0.19 mg/L (0.19-0.50)
== END 2024-01-02 14:02 | disposition home or self-care (01) ==
LOC: JD.ED 10:17
DX: R07.89 Other chest pain (principal); I10 Essential (primary) hypertension; E78.00 Pure hypercholesterolemia, unspecified; K21.9 Gastro-esophageal reflux disease without esophagitis; Z86.16 Personal history of COVID-19; Z79.01 Long term (current) use of anticoagulants; Z79.899 Other long term (current) drug therapy; Z91.041 Radiographic dye allergy status; Z91.013 Allergy to seafood; Z88.1 Allergy status to other antibiotic agents; Z88.2 Allergy status to sulfonamides; Z88.5 Allergy status to narcotic agent
CPT/HCPCS: 0241U; 36415; 71045; 80053; 81001; 83690; 83735; 84484; 85025; 85379; 85610; 93005; 96374; 96375; 99285; J1170; J2405; J3490; J7030

== ENCOUNTER 2024-03-27 18:32 | Emergency (ER) | payer BC ==
[2024-03-27 19:35] LABS: BASOPHILS PERCENT AUTO 0.3 % (0.0-1.0); EOSINOPHILS ABSOLUTE AUTO 0.1 K/mm3 (0.0-0.4); EOSINOPHILS PERCENT AUTO 1.9 % (0.0-6.0); HEMATOCRIT 37.9 % (37.0-47.0); HEMOGLOBIN 12.5 gm/dl (12.0-16.0); IMMATURE GRAN ABSOLUTE AUTO 0.04 K/mm3 (0.00-0.05); IMMATURE GRAN PERCENT AUTO 0.6 % (0.0-0.4); LYMPHOCYTES ABSOLUTE AUTO 1.7 K/mm3 (1.0-4.8); LYMPHOCYTES PERCENT AUTO 26.4 % (24.0-44.0); MEAN CORPUSCULAR HEMOGLOBIN 27.5 pg (28.0-32.0); MEAN CORPUSCULAR VOLUME 83.5 fl (83.0-99.0); MEAN PLATELET VOLUME 10.3 fl (9.4-12.3); MONOCYTES ABSOLUTE AUTO 0.6 K/mm3 (0.0-0.8); MONOCYTES PERCENT AUTO 8.8 % (0.0-8.0); NEUTROPHILS ABSOLUTE AUTO 3.9 K/mm3 (1.8-7.7); PLATELET COUNT,PLT 294 K/mm3 (150-400); RED BLOOD CELL COUNT 4.54 M/mm3 (4.10-5.30); WHITE BLOOD CELL COUNT,WBC 6.36 K/mm3 (3.9-11.3)
[2024-03-27] MEDS: diphenhydrAMINE 50 MG/ML SDV IVPUSH ONE (19:41)
[2024-03-27] MEDS: methylPREDNISolone Sodium Succinate 125 MG/2 ML SDV IVPUSH ONE (19:42)
[2024-03-27] MEDS: Sodium Chloride 0.9% 10 ML Syringe FLUSH PRN (19:43)
[2024-03-27 19:48] LABS: APPEARANCE,URINE CLEAR (Clear); BILIRUBIN,URINE 1+ (Negative); COLOR,URINE YELLOW (Yellow); GLUCOSE,URINE NEGATIVE (Negative); KETONES,URINE TRACE (Negative); LEUKOCYTE ESTERASE,URINE NEGATIVE (Negative); NITRITE,URINE NEGATIVE (Negative); OCCULT BLOOD,URINE NEGATIVE (Negative); PROTEIN,URINE 2+ (Negative); UROBILINOGEN,URINE 0.2 (0.2-1.0)
[2024-03-27 19:55] LABS: RBC,URINE 0-5 /hpf (0-5); WBC,URINE 0-5 /hpf (0-5)
[2024-03-27 19:56] LABS: BACTERIA,URINE FEW /hpf (FEW); MUCUS,URINE MANY /hpf (FEW); SQUAMOUS EPITHELIAL CELLS,UR 0-5 /hpf (0-5)
[2024-03-27 19:57] LABS: A/G RATIO 1.1 (1-2); ALBUMIN 3.4 g/dl (3.4-5.0); ANION GAP 16.5 (5-15); BILIRUBIN TOTAL 0.6 mg/dL (0.2-1.0); BUN/CREATININE RATIO 9.2 (14-18); C-REACTIVE PROTEIN 2.69 mg/dL (<0.30); CALCIUM 8.4 mg/dL (8.5-10.1); CREATININE 1.2 mg/dL (0.55-1.02); EST CRCL DRUG DOSING (CG) 45.74 mL/min; MAGNESIUM 2.1 mg/dL (1.8-2.4); POTASSIUM,K 3.5 mEq/L (3.5-5.1); PROTEIN TOTAL,TP 6.5 g/dl (6.4-8.2)
== END 2024-03-27 22:30 | disposition home or self-care (01) ==
LOC: JD.ED 18:32
DX: R10.11 Right upper quadrant pain (principal); R22.0 Localized swelling, mass and lump, head; I48.91 Unspecified atrial fibrillation; I25.2 Old myocardial infarction; I10 Essential (primary) hypertension; K21.9 Gastro-esophageal reflux disease without esophagitis; Z86.16 Personal history of COVID-19; Z79.01 Long term (current) use of anticoagulants; Z79.899 Other long term (current) drug therapy; Z88.1 Allergy status to other antibiotic agents; Z88.2 Allergy status to sulfonamides; Z88.6 Allergy status to analgesic agent; Z88.8 Allergy status to other drugs, medicaments and biological substances; Z91.013 Allergy to seafood; Z91.041 Radiographic dye allergy status
CPT/HCPCS: 36415; 76705; 76705-26; 80053; 81001; 83690; 83735; 85025; 86140; 93005; 93010; 96374; 96375; 99284; 99284-25; J1200; J2930; J3490

== ENCOUNTER 2024-08-22 21:32 | Emergency (ER) | payer BC ==
[2024-08-22] MEDS ORDERED: Sodium Chloride 0.9% 10 ML Syringe FLUSH PRN (22:10)
[2024-08-22] MEDS: Ondansetron 4 MG/2 ML SDV IVPUSH ONE (22:40)
[2024-08-22] MEDS: HYDROmorphone 0.5 MG/0.5 ML Syringe IVPUSH ONE (22:40)
[2024-08-22] MEDS: Sodium Chloride 0.9% 1,000 ML IV SCH (22:40)
[2024-08-22 22:43] LABS: BASOPHILS ABSOLUTE AUTO 0.1 K/mm3 (0.0-0.2); BASOPHILS PERCENT AUTO 0.4 % (0.0-1.0); EOSINOPHILS ABSOLUTE AUTO 0.1 K/mm3 (0.0-0.4); EOSINOPHILS PERCENT AUTO 0.7 % (0.0-6.0); HEMATOCRIT 40.7 % (37.0-47.0); IMMATURE GRAN ABSOLUTE AUTO 0.03 K/mm3 (0.00-0.05); IMMATURE GRAN PERCENT AUTO 0.2 % (0.0-0.4); LYMPHOCYTES ABSOLUTE AUTO 0.7 K/mm3 (1.0-4.8); LYMPHOCYTES PERCENT AUTO 5.3 % (24.0-44.0); MEAN CORPUSCULAR HEMOGLOBIN 25.9 pg (28.0-32.0); MEAN CORPUSCULAR HGB CONC 31.9 g/dl (32.0-36.0); MEAN CORPUSCULAR VOLUME 81.1 fl (83.0-99.0); MEAN PLATELET VOLUME 10.8 fl (9.4-12.3); MONOCYTES ABSOLUTE AUTO 0.3 K/mm3 (0.0-0.8); MONOCYTES PERCENT AUTO 2.4 % (0.0-8.0); NEUTROPHILS ABSOLUTE AUTO 11.4 K/mm3 (1.8-7.7); PLATELET COUNT,PLT 275 K/mm3 (150-400); RED BLOOD CELL COUNT 5.02 M/mm3 (4.10-5.30); WHITE BLOOD CELL COUNT,WBC 12.53 K/mm3 (3.9-11.3)
[2024-08-22 23:05] LABS: A/G RATIO 1.1 (1-2); ALBUMIN 4.1 g/dl (3.4-5.0); ANION GAP 17.8 (5-15); CALCIUM 9.2 mg/dL (8.5-10.1); CREATININE 0.8 mg/dL (0.55-1.02); EST CRCL DRUG DOSING (CG) 68.61 mL/min; POTASSIUM,K 3.8 mEq/L (3.5-5.1); PROTEIN TOTAL,TP 7.8 g/dl (6.4-8.2)
[2024-08-22] MEDS: Metoclopramide 10 MG/2 ML SDV IVPUSH ONE (23:59)
[2024-08-23 00:27] LABS: INR > 8.00; PROTHROMBIN TIME 74.2 SECONDS (9.7-12.0)
[2024-08-23] MEDS: Ondansetron 4 MG/2 ML SDV IVPUSH ONE (01:38)
[2024-08-23] MEDS: Phytonadione 5 MG in Sodium Chloride 0.9% 50 ML IV ONE (01:40)
[2024-08-23 01:52] LABS: APPEARANCE,URINE CLEAR (Clear); BILIRUBIN,URINE NEGATIVE (Negative); COLOR,URINE LIGHT YELLOW (Yellow); GLUCOSE,URINE TRACE (Negative); KETONES,URINE 4+ (Negative); LEUKOCYTE ESTERASE,URINE NEGATIVE (Negative); NITRITE,URINE NEGATIVE (Negative); OCCULT BLOOD,URINE TRACE-INTACT (Negative); PROTEIN,URINE 1+ (Negative); UROBILINOGEN,URINE 0.2 (0.2-1.0)
[2024-08-23 02:08] LABS: BACTERIA,URINE RARE /hpf (FEW); MUCUS,URINE RARE /hpf (FEW); RBC,URINE 0-5 /hpf (0-5); SQUAMOUS EPITHELIAL CELLS,UR 0-5 /hpf (0-5); WBC,URINE 0-5 /hpf (0-5)
[2024-08-23] MEDS: diphenhydrAMINE 50 MG/ML SDV IVPUSH ONE (02:35)
[2024-08-23] MEDS: Promethazine 25 MG Tab PO ONE (02:35)
== END 2024-08-23 03:19 | disposition home or self-care (01) ==
LOC: JD.ED 21:32
DX: K52.9 Noninfective gastroenteritis and colitis, unspecified (principal); R11.2 Nausea with vomiting, unspecified; R79.1 Abnormal coagulation profile; I10 Essential (primary) hypertension; K21.9 Gastro-esophageal reflux disease without esophagitis; E78.00 Pure hypercholesterolemia, unspecified; Z88.0 Allergy status to penicillin; Z91.041 Radiographic dye allergy status; Z91.013 Allergy to seafood; Z88.8 Allergy status to other drugs, medicaments and biological substances; Z79.01 Long term (current) use of anticoagulants; Z79.899 Other long term (current) drug therapy; Z90.49 Acquired absence of other specified parts of digestive tract; Z86.16 Personal history of COVID-19
CPT/HCPCS: 36415; 70450; 80053; 81001; 83690; 85025; 85610; 96361; 96365; 96375; 96376; 99284; J1200; J2405; J2765; J3430; J3490; J7030; J8597

== ENCOUNTER 2025-02-06 17:47 | Emergency (ER) | payer BC | END 2025-02-06 19:15 | disposition left against medical advice (07) | LOC: JD.ED 17:47 | DX: Z53.21 Procedure and treatment not carried out due to patient leaving prior to being seen by health care provider (principal) ==

== ENCOUNTER 2025-02-06 19:33 | Emergency (ER) | payer BC | END 2025-02-06 19:35 | disposition left against medical advice (07) | LOC: JD.ED 19:33 | DX: Z53.21 Procedure and treatment not carried out due to patient leaving prior to being seen by health care provider (principal) ==